=== PATIENT | male | born 1960 | race Caucasian/White ===

== ENCOUNTER 2023-01-08 09:54 | Outpatient (OUT) | payer BC, SELFPAY ==
--- NOTE | 2023-01-08 09:55 | VEIN_ITS ---
Patient: KEITH MENDES Exam Date: 01/08/2023 : 1960 Gender:M Ordering : DR Miky Bailey . Admission #: [id number] Family : Order #: [id number] CLICK HERE TO VIEW EXAM PROCEDURE: VC ARTERIAL SCAN ANNETTA COMPARISON: None. INDICATIONS: I73. 9 for Peripheral vascular disease FINDINGS: RIGHT LEG: Patent endovascular stent without significant narrowing within proximal femoral artery. Marked atherosclerotic disease throughout the right leg with abnormal monophasic waveform throughout. Parvus-tardus waveform within the distal femoral artery, popliteal, and calf arteries. Venous type waveform within anterior tibial artery. Flow velocities are above 50 cm/s except for within the anterior tibial artery (max 9 cm/s) and peroneal artery (max 20 cm/s). LEFT LEG: Patent endovascular stent without significant narrowing within proximal femoral artery. Marked atherosclerotic disease throughout the left leg with abnormal biphasic waveform throughout. Borderline, weak triphasic waveform within calf arteries. Flow velocities are above 50 cm/s throughout. CONCLUSION: 1. Marked atherosclerotic disease within the lower extremities resulting in abnormal waveform and decreased flow; right greater than left. Patent endovascular stents within the proximal femoral artery on the right and left. Dictated by: Louis De La Cruz M.D. on 01/08/2023 at 11:57 Approved by: Louis De La Cruz M.D. on 01/08/2023 at 12:41
--- NOTE | 2023-01-08 09:56 | VEIN_ITS ---
Patient: KEITH MENDES Exam Date: 01/08/2023 : 1960 Gender:M Ordering : DR Miky Bailey . Admission #: [id number] Family : Order #: [id number] CLICK HERE TO VIEW EXAM RADIOLOGY REPORT PROCEDURE: VC EXT VENOUS REFLUX ANNETTA LMTD COMPARISON: None. INDICATIONS: Pain due to varicose veins of bilateral legs I83.813 TECHNIQUE: Duplex imaging of the lower extremity to assess the deep and superficial venous system for the presence of deep or superficial venous incompetence and to document the location and severity of disease. The study includes evaluation of the great saphenous vein (GSV), anterior accessory saphenous vein (AASV) and small saphenous vein (SSV). Patient scanned in reverse Trendelenburg and standing. FINDINGS: RIGHT LOWER EXTREMITY: Saphenofemoral Junction Reflux: Yes 3.3mm 0.7 sec GSV: Diam (mm) Reflux/ Time (sec) Proximal Thigh 3.4 No Mid Thigh 2.0 No Distal Thigh 2.1 No Prox Calf 1.7 No Mid Calf 2.1 No 0.3 Saphenopopliteal Junction Reflux: 3.2mm No SSV: Proximal Calf 2.0 No Mid Calf 1.9 No AASV: Not present Proximal Thigh Mid Thigh Distal Thigh Thrombi: No acute or chronic thrombus visualized Compressibility: Normal Flow: Normal Director Money: Mid/med calf 2.2mm with 0s reflux. Tech Note: No incompetency or varicose veins visualized. Some images are limited due to large amounts of plaque. LEFT LOWER EXTREMITY: Saphenofemoral Junction Reflux: No 5.2 mm sec GSV: Diam (mm) Reflux/Time (sec) Proximal Thigh 3.0 No Mid Thigh 2.4 Yes 0.6 Distal Thigh 2.4 No Prox Calf 1.0 No Mid Calf N/A Saphenopopliteal Junction Relux: 2.6 mm No SSV: Proximal Calf 1.3 No Mid Calf 1.3 No AASV: Not present Proximal Thigh Mid Thigh Distal Thigh Thrombi: No acute or chronic thrombus visualized Compressibility: Normal Flow: Normal Director Money: Dist/med calf 1.7mm with 0s reflux. Tech Note: No incompetency or varicose veins visualized. CONCLUSION: 1. No significant abnormal dilation or incompetency of the superficial veins of the right or left leg. Dictated by: Louis De La Cruz M.D. on 01/08/2023 at 12:41 Approved by: Louis De La Cruz M.D. on 01/08/2023 at 13:46
== END 2023-01-08 09:55 | disposition home or self-care (01) ==
LOC: VC 09:54
PROVIDERS: PCP Family Medicine; Visit Provider Family Medicine
DX: E11.43 Type 2 diabetes mellitus with diabetic autonomic (poly)neuropathy (principal); I83.813 Varicose veins of bilateral lower extremities with pain; I73.9 Peripheral vascular disease, unspecified
CPT/HCPCS: 93925; 93970

== ENCOUNTER 2023-03-04 16:15 | Emergency (ER) | payer BC, SELFPAY ==
[2023-03-04 16:21] VITALS: BP 138/87; PULSE 103; RESP 20; TEMP 36.8; O2SAT 98
--- NOTE | 2023-03-04 16:24 | XR_ITS ---
The [address] [address] Patient Name: KEITH MENDES MRN: [id number] date: 1960 Sex: M Assigned Patient Location: ER Current Patient Location: ER Accession/Order Number: [id number] Exam Date: 03/04/2023 16:58 Report Date: 03/04/2023 17:45 At the request of: ARTUR MENDOZA Procedure: XR hip RT 2V w/ pelvis EXAM: XR hip RT 2V w/ pelvis HISTORY: Fall COMPARISON: None. TECHNIQUE: An AP view of the pelvis, 2 additional views of the right hip are performed. FINDINGS: There is no acute fracture. Joint spaces are symmetric. There are extensive atherosclerotic vascular calcifications. Vascular stents are seen within both femoral arteries. XR/XR hip RT 2V w/ pelvis IMPRESSION: No acute bony abnormality. Electronically authenticated by: MORELIA BOSS Date: 03/04/2023 17:45
--- NOTE | 2023-03-04 16:24 | CT_ITS ---
[address] [address] Patient Name: KEITH MENDES MRN: [id number] date: 1960 Sex: M Assigned Patient Location: ER Current Patient Location: ER Accession/Order Number: [id number] Exam Date: 03/04/2023 16:47 Report Date: 03/04/2023 17:47 At the request of: ARTUR MENDOZA Procedure: CT cervical spine wo con EXAMINATION: CT cervical spine wo con HISTORY: Fall COMPARISON: None. TECHNIQUE: CT scan of the cervical spine was performed without IV contrast. CT dose reduction technique was used, including Automated Exposure Control. FINDINGS: There is reverse of the normal cervical lordosis. No spondylolisthesis. There are degenerative changes of the cervical spine characterized by endplate osteophyte and intervertebral disc space narrowing, most pronounced at C5-C6 and C6-C7 levels. No prevertebral soft tissue swelling. No evidence for fracture . There is biapical centrilobular emphysema. CT/CT cervical spine wo con IMPRESSION: No acute fracture or subluxation. Electronically authenticated by: ROB DC Date: 03/04/2023 17:47
--- NOTE | 2023-03-04 16:24 | CT_ITS ---
[address] [address] Patient Name: KEITH MENDES MRN: [id number] date: 1960 Sex: M Assigned Patient Location: ED.MAIN Current Patient Location: ER Accession/Order Number: [id number] Exam Date: 03/04/2023 16:47 Report Date: 03/04/2023 17:46 At the request of: ARTUR MENDOZA Procedure: CT head/brain wo con EXAMINATION: CT head/brain wo con, 03/04/2023 4:47 PM EDT HISTORY: Fall COMPARISON: None. TECHNIQUE: CT scan of the head was performed without IV contrast. CT dose reduction technique was used, including Automated Exposure Control. FINDINGS: BRAIN PARENCHYMA/CSF SPACES: Ventricles are normal in size for age. There is no hemorrhage, mass effect or midline shift. There are no other significant findings. PARANASAL SINUSES: Clear. SKULL BASE AND CALVARIUM: Normal. EXTRACRANIAL SOFT TISSUES: Normal. CT/CT head/brain wo con IMPRESSION: No acute intracranial findings. Electronically authenticated by: NEL BROWN Date: 03/04/2023 17:46
--- NOTE | 2023-03-04 16:26 | ED_ITS ---
Documented by User: ALMA Ram 03/04/23 17:52 HPI - Head Injury General Chief complaint: Head Injury Stated complaint: HEAD INJURY/FALL Time Seen by Provider: 03/04/23 16:16 Source: patient and family Mode of arrival: Wheelchair Limitations: no limitations History of Present Illness HPI Narrative: Patient is a 62-year-old male who presents to the emergency department after fa lling and hitting his head. 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 He was cleared by his supervisor aircraft maintenance for this procedure and went home and took a nap. He states on waking from his nap he got up to ambulate and fell, striking his head and right side. He complains of some pain in the head, mild pain in the right side of the neck and mild pain in the right hip. He stopped his blood thinner several days ago in anticipation of his procedure tomorrow. He is not completely sure why he fell, but he thinks he may possibly have tripped on his oxygen tubing. He wears oxygen when he is up and moving at 3 L per nasal cannula. He has been able to ambulate since he fell. Related Data Allergies Allergy/AdvReac Type Severity Reaction Status Date / Time erythromycin base Allergy Severe Verified 03/04/23 16:21 Review of Systems ROS Constitutional Denies: fever or chills Ears, nose, mouth, and throat Reports: neck pain; Denies: throat pain Cardiovascular Denies: chest pain Respiratory Reports: shortness of breath; Denies: cough Gastrointestinal Reports: nausea; Denies: vomiting Musculoskeletal Reports: neck pain and extremity pain; Denies: back pain Integumentary/Breast Denies: rash Neurological Denies: headache Hematologic/Lymphatic Reports: easy bruising PFSH PFSH Social History Smoking status: Former smoker Exam Narrative Exam Narrative: Gen.: Awake, alert, in no distress Head: Normocephalic, atraumatic; no significant evidence of head or dental injury Neck: C-spine is nontender, mild tenderness of the right paraspinal muscles of the cervical spine ENT: Moist mucous membranes Respiratory: No respiratory distress, oxygen by nasal cannula, diminished lung sounds globally Cardio: Regular rate and rhythm Gastrointestinal: Abdomen is soft, nondistended and nontender to palpation, hips nontender and pelvis is stable Extremities: Moves extremities equally, no injuries noted; normal hip flexion bilaterally to remove the patient's pants, able to transfer from wheelchair to exam cart Psych: Normal mood and affect Neuro: No focal neuro deficit Skin: Warm, dry, intact Constitutional Vital Signs, click to edit/add: Last Vital Signs Temp 98.2 F 03/04/23 16:21 Pulse 80 03/04/23 18:14 Resp 22 03/04/23 18:14 BP 148/66 H 03/04/23 18:14 Pulse Ox 97 03/04/23 18:14 O2 Del Method Nasal Cannula 03/04/23 18:14 O2 Flow Rate 3 03/04/23 18:14 Course Vital Signs Vital signs: Vital Signs Temperature 98.2 F 03/04/23 16:21 Pulse Rate 103 H 03/04/23 16:21 Respiratory Rate 20 03/04/23 16:21 Blood Pressure 138/87 03/04/23 16:21 Pulse Oximetry 98 03/04/23 16:21 Oxygen Delivery Method Nasal Cannula 03/04/23 16:21 Oxygen Delivery Flow Rate 3 03/04/23 16:21 Temperature 98.2 F 03/04/23 16:21 Pulse Rate 80 03/04/23 18:14 Respiratory Rate 22 03/04/23 18:14 Blood Pressure 148/66 H 03/04/23 18:14 Pulse Oximetry 97 03/04/23 18:14 Oxygen Delivery Method Nasal Cannula 03/04/23 18:14 Oxygen Delivery Flow Rate 3 03/04/23 18:14 MDM - Head Injury MDM Narrative Medical decision making narrative: Patient requested his home dosage of Xanax for anxiety. He was given Zofran as well. CTs of the head, C-spine and x-rays of the right hip and pelvis are unremarkable, these were reviewed by the radiologist. Patient recently filled a prescription of Percocet from his PCP. He will have this at home for pain. Tylenol as needed, follow-up with PCP and return to the Emergency Room if symptoms change or worsen. Medical Records Attestation: I reviewed the patient's medical records. Imaging Data CT scan - head: Attestation: I have reviewed the pertinent imaging results. Radiologist's impression: Procedure: CT head/brain wo con EXAMINATION: CT head/brain wo con, 03/04/2023 4:47 PM EDT HISTORY: Fall COMPARISON: None. TECHNIQUE: CT scan of the head was performed without IV contrast. CT dose reduction technique was used, including Automated Exposure Control. FINDINGS: BRAIN PARENCHYMA/CSF SPACES: Ventricles are normal in size for age. There is no hemorrhage, mass effect or midline shift. There are no other significant findings. PARANASAL SINUSES: Clear. SKULL BASE AND CALVARIUM: Normal. EXTRACRANIAL SOFT TISSUES: Normal. IMPRESSION: No acute intracranial findings. Electronically authenticated by: NEL BROWN Date: 03/04/2023 17:46 CT cervical spine: Attestation: I have reviewed the pertinent imaging results. Radiologist's impression: Procedure: CT cervical spine wo con EXAMINATION: CT cervical spine wo con HISTORY: Fall COMPARISON: None. TECHNIQUE: CT scan of the cervical spine was performed without IV contrast. CT dose reduction technique was used, including Automated Exposure Control. FINDINGS: There is reverse of the normal cervical lordosis. No spondylolisthesis. There are degenerative changes of the cervical spine characterized by endplate osteophyte and intervertebral disc space narrowing, most pronounced at C5-C6 and C6-C7 levels. No prevertebral soft tissue swelling. No evidence for fracture . There is biapical centrilobular emphysema. IMPRESSION: No acute fracture or subluxation. Electronically authenticated by: ROB DC Date: 03/04/2023 17:47 XR pelvis/right hip: Attestation: I have reviewed the pertinent imaging results. Radiologist's impression: EXAM: XR hip RT 2V w/ pelvis HISTORY: Fall COMPARISON: None. TECHNIQUE: An AP view of the pelvis, 2 additional views of the right hip are performed. FINDINGS: There is no acute fracture. Joint spaces are symmetric. There are extensive atherosclerotic vascular calcifications. Vascular stents are seen within both femoral arteries. IMPRESSION: No acute bony abnormality. Electronically authenticated by: MORELIA BOSS Date: 03/04/2023 17:45 Discharge Plan Discharge Chief Complaint: Head Injury Clinical Impression: Closed head injury Patient Disposition: Home, Self-Care Time of Disposition Decision: 17:52 Condition: Good Mode of Transportation: Private Vehicle Instructions: Head Injury (ED) Stand Alone Forms: Portal Instructions Referrals: Miky Bailey MD [Primary Care Provider] - 1 week Discharge Date/Time: 03/04/23 18:05 Documented by User: Cece Jennings MD 03/04/23 18:31 HPI - Head Injury General Chief complaint: Head Injury Stated complaint: HEAD INJURY/FALL Time Seen by Provider: 03/04/23 16:16 Related Data Allergies Allergy/AdvReac Type Severity Reaction Status Date / Time erythromycin base Allergy Severe Verified 03/04/23 16:21 PFSH PFSH Social History Smoking status: Former smoker Exam Constitutional Vital Signs, click to edit/add: Last Vital Signs Temp 98.2 F 03/04/23 16:21 Pulse 80 03/04/23 18:14 Resp 22 03/04/23 18:14 BP 148/66 H 03/04/23 18:14 Pulse Ox 97 03/04/23 18:14 O2 Del Method Nasal Cannula 03/04/23 18:14 O2 Flow Rate 3 03/04/23 18:14 Course Vital Signs Vital signs: Vital Signs Temperature 98.2 F 03/04/23 16:21 Pulse Rate 103 H 03/04/23 16:21 Respiratory Rate 20 03/04/23 16:21 Blood Pressure 138/87 03/04/23 16:21 Pulse Oximetry 98 03/04/23 16:21 Oxygen Delivery Method Nasal Cannula 03/04/23 16:21 Oxygen Delivery Flow Rate 3 03/04/23 16:21 Temperature 98.2 F 03/04/23 16:21 Pulse Rate 80 03/04/23 18:14 Respiratory Rate 22 03/04/23 18:14 Blood Pressure 148/66 H 03/04/23 18:14 Pulse Oximetry 97 03/04/23 18:14 Oxygen Delivery Method Nasal Cannula 03/04/23 18:14 Oxygen Delivery Flow Rate 3 03/04/23 18:14 MDM - Head Injury MDM Narrative Medical decision making narrative: Patient requested his home dosage of Xanax for anxiety. He was given Zofran as well. CTs of the head, C-spine and x-rays of the right hip and pelvis are unremarkable, these were reviewed by the radiologist. Patient recently filled a prescription of Percocet from his PCP. He will have this at home for pain. Tylenol as needed, follow-up with PCP and return to the Emergency Room if symptoms change or worsen. Attending physician attestation I have reviewed the mid-level documentation, agree with the documentation, medical decision making and treatment plan as outlined by the mid-level provider. Discharge Plan Discharge Chief Complaint: Head Injury Clinical Impression: Closed head injury Patient Disposition: Home, Self-Care Time of Disposition Decision: 17:52 Condition: Good Mode of Transportation: Private Vehicle Instructions: Head Injury (ED) Stand Alone Forms: Portal Instructions Referrals: Miky Bailey MD [Primary Care Provider] - 1 week Discharge Date/Time: 03/04/23 18:05
[2023-03-04] MEDS: ONDANSETRON 4 MG RAPDIS TABLET SL (16:33)
[2023-03-04] MEDS: ALPRAZOLAM 0.25 MG TABLET PO (16:41)
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
[2023-03-04 18:14] VITALS: BP 148/66; PULSE 80; RESP 22; O2SAT 97
== END 2023-03-04 18:05 | disposition home or self-care (01) ==
PROVIDERS: Emergency Provider Emergency Medicine; PCP Family Medicine
DX: S09.8XXA Other specified injuries of head, initial encounter (principal); W18.30XA Fall on same level, unspecified, initial encounter; Z99.81 Dependence on supplemental oxygen; Z87.891 Personal history of nicotine dependence
CPT/HCPCS: 70450; 72125; 73502; 99284

== ENCOUNTER 2023-06-19 11:10 | Outpatient (OUT) | payer BC, SELFPAY ==
--- NOTE | 2023-06-19 11:16 | XR_ITS ---
The [address] [address] Patient Name: KEITH MENDES MRN: [id number] date: 1960 Sex: M Assigned Patient Location: LAB Current Patient Location: LAB Accession/Order Number: [id number] Exam Date: 06/19/2023 11:20 Report Date: 06/19/2023 13:29 At the request of: VALE CARRANZA Procedure: XR chest 2V EXAMINATION: XR chest 2V HISTORY: Other Specified Cough R05.8 , shortness of breath COMPARISON: XR chest 10/01/2022, 09/26/2022, 06/12/2022 FINDINGS: LUNGS: Chronic stranding within right lung apex favoring scarring. 1.5 cm nodular opacity along lateral left chest wall below level of hilum site of prior infiltrate and pleural effusion. VASCULATURE: No increased pulmonary vasculature. PLEURA: Moderate bilateral pleural effusions. No pneumothorax. CARDIAC: No cardiomegaly or cardiac silhouette abnormality. MEDIASTINUM: No visible mass or adenopathy. BONES: No fracture or visible bone lesion. OTHER: Negative. XR/XR chest 2V IMPRESSION: 1. Moderate bilateral pleural effusions 2. Small opacity along the lower lateral left chest wall; mass versus acute infiltrate versus scarring from prior infiltrates and pleural effusion. Consider follow-up CT chest for further evaluation, or at least a follow-up chest x-ray in one month following treatment to evaluate for clearing versus persistence. Electronically authenticated by: KEITH SU Date: 06/19/2023 13:29
== END 2023-06-19 11:11 | disposition home or self-care (01) ==
PROVIDERS: PCP Family Medicine; Visit Provider Family Medicine
DX: R05.8 Other specified cough (principal); J90 Pleural effusion, not elsewhere classified
CPT/HCPCS: 71046; 87070; 87150; 87186; 87205

== ENCOUNTER 2023-06-23 13:34 | Outpatient (OUT) | payer BC, SELFPAY ==
--- NOTE | 2023-06-23 13:39 | CT_ITS ---
[address] [address] Patient Name: KEITH MENDES MRN: [id number] date: 1960 Sex: M Assigned Patient Location: CT Current Patient Location: CT Accession/Order Number: [id number] Exam Date: 06/23/2023 13:50 Report Date: 06/23/2023 15:46 At the request of: VALE CARRANZA Procedure: CT chest wo con EXAM TYPE: CT chest wo con INDICATION: Dyspnea, COPD. COMPARISON: Noncontrast CT of the chest 03/31/2022, CT angiography of the chest 08/20/2022 TECHNIQUE: Noncontrast, Low dose, helical axial images of the chest were obtained, and thin section, axial MIP, and coronal and sagittal reformats were also submitted from the acquisition scanner under radiologist supervision. Each series was submitted in a lung algorithm. Dose reduction techniques were achieved by using automated exposure control and/or adjustment of mA and/or kV according to patient size and/or use of iterative reconstruction technique. FINDINGS: Please note that this examination was tailored for evaluation of pulmonary nodules, and therefore soft tissue detail is suboptimal. Heart size within normal limits. No pericardial effusion. Calcified atherosclerotic change within a normal caliber aorta. No mediastinal, hilar or axillary lymphadenopathy. No central endobronchial nodule. Extensive emphysematous change throughout the lung parenchyma with large right apical bulla. Diffuse bronchial wall thickening. Pronounced bronchial wall thickening within the right upper lobe with dense right upper lobe consolidation containing air bronchograms. Consolidation adjacent to large right apical bulla. Layering debris within apical bulla. Adjacent pleural thickening and traction fibrosis. Air-fluid level within large apical bulla is no longer identified. Trace bilateral pleural effusions with overlying consolidation. Small sliding hiatal hernia. No acute fracture. IMPRESSION : Interval increase in conspicuity of right upper lobe pneumonia with likely superimposed atelectasis. Air-fluid level within large right apical bulla is no longer appreciated however there is layering debris. Trace bilateral pleural effusions. Electronically authenticated by: HOSEA PHILLIPS Date: 06/23/2023 15:46
== END 2023-06-23 13:35 | disposition home or self-care (01) ==
LOC: CT 13:34
PROVIDERS: PCP Family Medicine; Visit Provider Family Medicine
DX: R06.02 Shortness of breath (principal); J44.9 Chronic obstructive pulmonary disease, unspecified
CPT/HCPCS: 71250

== ENCOUNTER 2023-06-24 11:44 | Inpatient (IN) | payer BC, SELFPAY ==
[2023-06-24] VITALS (11 sets, daily range): BP systolic 109–111; BP diastolic 56–67; PULSE 71–85; RESP 18–22; TEMP 36.3–36.5; O2SAT 92–98; BMI 18.8
--- NOTE | 2023-06-24 12:36 | XR_ITS ---
The [address] [address] Patient Name: KEITH MENDES MRN: [id number] date: 1960 Sex: M Assigned Patient Location: MS Current Patient Location: Accession/Order Number: [id number] Exam Date: 06/24/2023 13:50 Report Date: 06/24/2023 15:06 At the request of: VALE CARRANZA Procedure: XR chest 2V EXAM: XR chest 2V HISTORY: Dyspnea COMPARISON: 06/19/2023 TECHNIQUE: PA and lateral views FINDINGS: There is blunting of the bilateral lateral cost phrenic angles consistent with small bilateral pleural effusions, substantially unchanged from prior study of 5 days ago. Again, there is right apical scarring. A 1.5 cm pleurally based nodule is again seen in the left lower lung field laterally. No new infiltrate is evident. The heart is within normal limits in size. Early calcification at the aortic arch. XR/XR chest 2V IMPRESSION: Stable appearance of the chest, with blunting of the bilateral lateral costophrenic angles consistent with small bilateral pleural effusions. Electronically authenticated by: Beth FORREST Date: 06/24/2023 15:06
--- NOTE | 2023-06-24 12:37 | CA_ITS ---
Patient Name: KEITH MENDES MR#: [id number] : 1960 Exam Date: 06/24/2023 Ordering Doctor: DR VALE CARRANZA . ECHOCARDIOGRAM REPORT PROCEDURE: CA ECHO DOPPLER COMPLETE INDICATIONS: Dyspnea COMPARISON: None. DESCRIPTION: COMPLETE ECHOCARDIOGRAM Real-time transthoracic echocardiography with 2D, M-mode, spectral and color flow Doppler performed. QUALITY: Technical quality was adequate. LEFT VENTRICLE: Normal chamber size. Normal left ventricular wall thickness. LV EF: Global left ventricular systolic function is hyperdynamic. Visual estimation of left ventricular ejection fraction is 70-75 %. DIASTOLIC: Normal diastolic function. ATRIAL SEPTUM: Inadequately visualized. LEFT ATRIUM: Normal chamber size. RIGHT ATRIUM: Normal chamber size. RIGHT VENTRICLE: Normal chamber size. Normal right ventricular systolic function. TRICUSPID VALVE: Normal mobility and thickness. No stenosis with trivial regurgitation. No evidence of pulmonary hypertension. RVSP 21mmHg MITRAL VALVE: Mildly thickened with normal mobility. No evidence of mitral valve stenosis. There is no mitral annular calcification. No mitral regurgitation. AORTIC VALVE: Normal trileaflet appearance. Moderately calcified aortic valve. Doppler velocity suggest mild aortic valve stenosis. Velocities are likely overestimated due to hyperdynamic left ventricular function. No aortic regurgitation. AORTIC ROOT: Normal diameter and appearance. PULMONIC VALVE: Normal thickness and mobility. No stenosis. No regurgitation. PERICARDIUM: Anterior free space; trivial effusion versus fat pad. IVC: Collapses with inspirations. Normal size. CONCLUSION: 1. Global left ventricular systolic function is hyperdynamic; visually estimated ejection fraction is 70 to 75% 2. Normal diastolic function 3. The right ventricle is normal in size and systolic function 4. Mild aortic valve stenosis; velocities may be falsely elevated due to hyperdynamic global left ventricular systolic function 5. Anterior free space; trivial effusion versus fat pad Adult Echocardiography Procedure Report Left Ventricle LVEDD (3.7 - 5.6 cm): 3.88 cm LVESD (2.2 - 4.0 cm): 2.47 cm LVIVS thickness (0.6 - 1.2 cm): 8.53 mm LVPW thickness (0.5 - 1.0 cm): 9.54 mm LVOT Max Gradient: 3 mm[Hg] Peak Velocity (LVOT): 86.50 cm/s Mean Velocity (LVOT): 62.90 cm/s LVOT Diameter 1.90 cm Left Ventricular Ejection Fraction: 66.70 % Left Atrium LA Volume Index (2D A2C): 51043 mm3 Left Atrium Systolic Dimension: 2.80 cm Mitral Valve MV E to A Ratio: 0.80 Mitral Valve A-Wave Peak Velocity: 77.00 cm/s Mitral Valve E-Wave Peak Velocity: 64.20 cm/s Right Ventricle Aorta AO Root Diam: 2.90 cm Aortic Valve AoV Area (Peak Sebastian): 1.14 cm2 AoV Area (VTI): 1.57 cm2 Peak Velocity(Antegrade Flow): 216.00 cm/s Peak Gradient(Antegrade Flow): 19 mm[Hg] Mean Velocity(Antegrade Flow): 135.00 cm/s Mean Gradient(Antegrade Flow): 9 mm[Hg] Velocity Time Integral: 41.20 cm Tricuspid Valve Peak Velocity (Regurgitant Flow): 211.00 cm/s Peak Velocity: 61.70 cm/s Pulmonic Valve Peak Velocity: 97.70 cm/s, 106.00 cm/s Peak Gradient: 4 mm[Hg] Right Atrium Dictated by: Monae Amaral M.D. on 06/24/2023 at 15:54 Approved by: Monae Amaral M.D. on 06/24/2023 at 15:59
[2023-06-24 13:14] LABS: pH ABG 7.442 (7.350-7.450)
[2023-06-24 13:15] LABS: ABG PCO2 35.6 mmHg (35.0-45.0); Allen Test POSITIVE (POSITIVE); Base Excess ABG 0.1 mmol/L (-2.0-2.0); HCO3 ABG 24.3 mmol/L (22.0-26.0); Liters per Minute 3; O2 Mode NASAL CANNULA; Oxygen Saturation ABG 99.9 %
[2023-06-24 13:16] LABS: Puncture Site R RADIAL
[2023-06-24 13:49] LABS: Basophils Percent Auto 0.1 % (0.2-2.0); Eosinophils Percent Auto 0.2 % (0.9-7.0); Hematocrit 32.3 % (42.0-54.0); Hemoglobin 10.6 g/dL (14.0-18.0); Immature Granulocytes Abs Auto 0.09 10^3/uL (0.00-0.03); Immature Granulocytes Pct Auto 0.8 % (0.0-0.5); Lymphocytes Absolute Auto 0.9 10^3/uL (1.2-3.8); Lymphocytes Percent Auto 8.1 % (20.5-60.0); Mean Corpuscular HGB Conc 32.8 g/dL (29.9-35.2); Mean Corpuscular Hemoglobin 29.9 pg (25.9-34.0); Mean Corpuscular Volume 91.2 fL (80.0-94.0); Mean Platelet Volume 9.9 fL (9.5-13.5); Monocytes Absolute Auto 0.4 10^3/uL (0.3-0.8); Monocytes Percent Auto 3.3 % (1.7-12.0); Neutrophils Absolute Auto 10.2 10^3/uL (1.4-6.5); Neutrophils Percent Auto 87.5 % (43.0-75.0); Platelet Count 210 10^3/uL (150-450); Red Blood Count 3.54 10^6/uL (4.70-6.10); Red Cell Distribution Width 14.6 % (11.0-15.0); White Blood Count 11.6 10^3/uL (4.0-11.0)
[2023-06-24 14:01] LABS: Lactate/Lactic Acid 0.9 mmol/L (0.4-2.0)
[2023-06-24 14:05] LABS: Troponin I High Sensitivity 7.9 pg/mL (4.0-76.1)
[2023-06-24 14:26] LABS: Alanine Aminotransferase 17 U/L (16-63); Albumin Globulin Ratio 0.7; Albumin Level 2.7 g/dL (3.4-5.0); Alkaline Phosphatase 70 U/L (46-116); Anion Gap 12.9; Aspartate Amino Transferase 14 U/L (15-37); BUN Creatinine Ratio 21.1; Bilirubin Total 0.9 mg/dL (0.2-1.0); Calcium 8.5 mg/dL (8.5-10.1); Carbon Dioxide 25.1 mmol/L (21.0-32.0); Chloride 99 mmol/L (98-107); Estimated GFR (African America >60 (>=60); Estimated GFR (Non-African Ame >60 (>=60); Globulin 3.8 g/dL; Glucose 112 mg/dL (74-106); Magnesium 1.9 mg/dL (1.8-2.4); Sodium 133 mmol/L (136-145); Total Protein 6.5 g/dL (6.4-8.2)
[2023-06-24 14:39] LABS: C Reactive Protein 6.69 mg/dL (<=0.30)
[2023-06-24] MEDS: ACETAMINOPHEN 500 MG TABLET 1000 MG PO (14:48)
[2023-06-24] MEDS: BENZONATATE 100 MG CAPSULE 200 MG PO ×2 (14:48→21:03)
[2023-06-24] MEDS: METHYLPREDNISOLONE SOD SUCC PF 125 MG/2 ML VIAL IVP ×2 (14:48→19:45)
[2023-06-24] MEDS: PANTOPRAZOLE SODIUM 40 MG VIAL IV (14:48)
[2023-06-24] MEDS: NICOTINE 21 MG PATCH.TD24 TD (14:54)
[2023-06-24] MEDS: LEVOFLOXACIN IN DEXTROSE 5 % 750 MG/150 ML IV.SOLN 100 MG IV (16:02)
[2023-06-24] MEDS: OXYCODONE HCL 5 MG TABLET 10 MG PO ×2 (16:03→21:13)
[2023-06-24] MEDS: IPRATROPIUM/ALBUTEROL SULFATE 3 ML AMPUL.NEB IH (16:39)
--- NOTE | 2023-06-24 17:14 | P.PLCN_ITS ---
History of Present Illness History of Present Illness Consult date: 06/24/23 Requesting physician: Miky Bailey Reason for consult: pneumonia Chief complaint: PNEUMONIA Narrative: 63yo male presents to [facility] upon direct admission by Dr. Bailey for pneumonia. The patient was last seen by me inpatient on 08/22/2022; he had multiple admissions for respiratory-related issues. He was smoking at that time, which continued to exacerbate his COPD and cardiovascular issues. He was scheduled for a hospital F/U visit with me on 08/28/2022 and no showed for it. My office contacted the patient who stated I want to stop seeing Dr. Bull for now. He wished to have his pulmonary issues managed by Dr. Bailey from that time on. This was the last encounter with him until today. He has had several additional hospitalization since that time. He was at [facility] for an extensive vascular surgery which he developed significant blood-loss anemia. He states his breathing was doing more poorly at home. A CXR suggested an infiltrate. Dr. Bailey ordered a chest CT 06/23/2023, compared to chest CT 04/09/2023 and 08/20/2022 - the report notes Interval increase in conspicuity of right upper lobe pneumonia with likely superimposed atelectasis. Air-fluid level within large right apical bulla is no longer appreciated however there is layering debris. The chest CT from 04/09/2023 is not accessable for me on the [employer] P[employer] system, but I was able to directly compare the imaging from 06/22/2023 and 08/20/2022 which does show a change in the infiltrative orientation between those 2 studies. Review of Systems ROS Status of ROS 10 or more systems reviewed and unremark able except as noted in history and below Constitutional Reports: chills, fatigue and malaise; Denies: fever or night sweats Cardiovascular Denies: chest pain Respiratory Reports: shortness of breath, cough and wheezing [facility] Medical History (Updated 06/24/23 @ 17:24 by Soto Bull DO) Coronary artery disease ?I25.10 - Atherosclerotic heart disease of [place] coronary artery without angina pectoris (ICD-10) Alcohol abuse ?F10.10 - Alcohol abuse, uncomplicated (ICD-10) Atrial fibrillation ?I48.91 - Unspecified atrial fibrillation (ICD-10) Hyperlipidemia ?E78.5 - Hyperlipidemia, unspecified (ICD-10) COPD (chronic obstructive pulmonary disease) ?J44.9 - Chronic obstructive pulmonary disease, unspecified (ICD-10) Pulmonary nodule ?R91.1 - Solitary pulmonary nodule (ICD-10) Anemia ?D64.9 - Anemia, unspecified (ICD-10) Neuropathy ?G62.9 - Polyneuropathy, unspecified (ICD-10) Pancreatitis, chronic ?K86.1 - Other chronic pancreatitis (ICD-10) Osteoarthritis ?M19.90 - Unspecified osteoarthritis, unspecified site (ICD-10) Peripheral vascular disease ?I73.9 - Peripheral vascular disease, unspecified (ICD-10) Hypertension ?I10 - Essential (primary) hypertension (ICD-10) Surgical History (Updated 06/24/23 @ 13:48 by Katalina Chacko RN) Status post insertion of iliac artery stent ?Z95.828 - Presence of other vascular implants and grafts (ICD-10) H/O endarterectomy ?Z98.890 - Other specified postprocedural states (ICD-10) Family History (Updated 06/24/23 @ 13:06 by Katalina Chacko RN) Father Family history of CHF (congestive heart failure) Mother Family history of COPD (chronic obstructive pulmonary disease) Family history of diabetes mellitus Social History (Updated 06/24/23 @ 13:07 by Katalina Chacko RN) Within the past year, how often did you have a drink containing alcohol: monthly or less Smoking status: Current every day smoker Non-prescribed substance use: cannabis (any form) Highest level of school completed/degree received: 12th grade, no diploma Meds Home Medications and Allergies Home Medications Medication Instructions Recorded Confirmed Type albuterol sulfate 2.5 mg/3 mL 2.5 mg inhalation Q4H PRN 06/24/23 06/24/23 History (0.083 %) solution for nebulization shortness of breath or wheezing alprazolam 0.5 mg tablet (Xanax) 0.5 mg PO TID PRN anxiety 06/24/23 06/24/23 History atorvastatin 40 mg tablet (Lipitor) 40 mg PO QPM 06/24/23 06/24/23 History carvedilol 6.25 mg tablet (Coreg) 6.25 mg PO BID 06/24/23 06/24/23 History cholecalciferol (vitamin D3) 50 2,000 unit PO DAILY 06/24/23 06/24/23 History mcg (2,000 unit) capsule duloxetine 30 mg capsule,delayed 30 mg PO DAILY 06/24/23 06/24/23 History release (Cymbalta) fluticasone fur. 200 mcg-umeclid 1 inh inhalation DAILY 06/24/23 06/24/23 History 62.5 mcg-vilant 25 mcg inhalat.powder (Trelegy Ellipta) gabapentin 600 mg tablet 600 mg PO BID 06/24/23 06/24/23 History (Neurontin) omeprazole 40 mg capsule,delayed 40 mg PO DAILY 06/24/23 06/24/23 History release oxycodone 10 mg tablet 10 mg PO Q4H PRN pain 06/24/23 06/24/23 History prasugrel 10 mg tablet 10 mg PO DAILY 06/24/23 06/24/23 History prednisone 10 mg tablet 20 mg PO DAILY 06/24/23 06/24/23 History valsartan 80 mg tablet (Diovan) 80 mg PO DAILY 06/24/23 06/24/23 History Allergies Allergy/AdvReac Type Severity Reaction Status Date / Time erythromycin base Allergy Severe Verified 03/04/23 16:21 Exam Constitutional Vital Signs, click to edit/add: Last Vital Signs Temp 97.7 F 06/24/23 12:31 Pulse 76 06/24/23 15:56 Resp 22 06/24/23 12:31 BP 111/67 06/24/23 12:31 Pulse Ox 97 06/24/23 12:31 O2 Del Method Nasal Cannula 06/24/23 12:31 O2 Flow Rate 3 06/24/23 12:31 Documenting provider has reviewed patient's vital signs: yes General appearance: frail appearing Nutritional appearance: underweight HENMT Other: Wearing Nasal cannula Chest Common normals: inspection of chest normal Chest: symmetrical chest wall rise Respiratory Other: Very diminished breath sounds bilaterally. Faint crackles in right chest mid- axillary line. No wheezes. Cardio Rate: regular rate Rhythm: regular rhythm GI Common normals: soft to palpation Auscultation: normoactive bowel sounds Extremity Other: Multiple BUE skin ecchymoses Neuro Sensorium/orientation: awake and alert Psych Speech: normal speech Mood and affect: flat affect Results Laboratory Findings ABG, PT/INR, D-dimer: ABG ABG pH 7.442 (7.350-7.450) 06/24/23 13:05 ABG pCO2 35.6 mmHg (35.0-45.0) 06/24/23 13:05 ABG pO2 131.0 mmHg (80.0-100.0) H 06/24/23 13:05 ABG O2 Saturation 99.9 % 06/24/23 13:05 Abnormal lab findings: Abnormal Labs 06/24/23 06/24/23 13:05 13:26 WBC 11.6 H RBC 3.54 L Hgb 10.6 L Hct 32.3 L Neut % (Auto) 87.5 H Lymph % (Auto) 8.1 L Eos % (Auto) 0.2 L Baso % (Auto) 0.1 L Neut # (Auto) 10.2 H Lymph # (Auto) 0.9 L Abs Immat Gran (auto) 0.09 H Imm/Tot Granulo (auto) 0.8 H ABG pO2 131.0 H Sodium 133 L Glucose 112 H AST 14 L C-Reactive Protein 6.69 H Albumin 2.[address] scan - chest: report reviewed and image reviewed Assessment and Plan Assessment and Plan (1) HCAP (healthcare-associated pneumonia): Assessment and Plan: 1. Healthcare-acquired pneumonia (HCAP) present on admission. Noted RUL on chest CT 06/23/2023. Though I could not access imaging from 04/09/2023, orientation of infiltrate has changed from 08/20/2022. As the chest CT was <90 days, I presume this was during an outside-[facility] facility admission, so he meets the time for HCAP definition. Patient was seen soon after arriving to the floor, so any lab evaluation was not reviewed. He was started on Zosyn + Levaquin, which I agree with this combination of antibiotics. Continue to monitor for improvement. Discussed that I would prefer to avoid a bronchoscopy for a BAL if possible - will see if any cultures return positive and tailor anti biotics according to C&S. 2. Acute exaerbation of COPD - underlying centrilobular emphysema. Continue bronchodilators, pulmonary toilet. 3. Tobacco abuse, current. Patient needs tobacco abuse cessation counseling again. 4. History of empyema and lung abscess. Need to monitor patient very carefully. Plan I will follow peripherally at this time in the event further pulmonary intervention is required.
[2023-06-24] MEDS: PIPERACILLIN SODIUM/TAZOBACTAM 3.375 GM in 0.9 % SODIUM CHLORIDE 50 ML IV (17:46)
[2023-06-24] MEDS: ALPRAZOLAM 0.5 MG TABLET PO (19:45)
[2023-06-24] MEDS: ATORVASTATIN CALCIUM 40 MG TABLET PO (19:45)
[2023-06-24] MEDS: CARVEDILOL 6.25 MG TABLET PO (21:03)
[2023-06-24] MEDS: GABAPENTIN 300 MG CAPSULE 600 MG PO (21:03)
[2023-06-24] MEDS: L. ACIDOPHILUS/L.BULGARICUS 1 PACKET GRAN.PACK PO (21:04)
--- NOTE | 2023-06-24 23:33 | RESP.RT ---
Patient denies need for HHN right now. Takes TID mostly at home but likes to take the last one around 6 or 7 pm since they make him shaky. Patient knows to call if needed
[2023-06-25] VITALS (21 sets, daily range): BP systolic 102–167; BP diastolic 51–73; PULSE 66–788; RESP 16–24; TEMP 36.2–36.4; O2SAT 92–99
[2023-06-25] MEDS: PIPERACILLIN SODIUM/TAZOBACTAM 3.375 GM in 0.9 % SODIUM CHLORIDE 50 ML IV ×3 (01:21→17:30)
[2023-06-25] MEDS: OXYCODONE HCL 5 MG TABLET 10 MG PO ×4 (01:21→19:00)
[2023-06-25] MEDS: METHYLPREDNISOLONE SOD SUCC PF 125 MG/2 ML VIAL IVP ×4 (01:21→20:44)
[2023-06-25] MEDS: ALBUTEROL SULFATE 2.5 MG/3 ML VIAL NEB IH ×3 (04:21→20:28)
[2023-06-25 05:24] LABS: Hematocrit 32.6 % (42.0-54.0); Hemoglobin 10.2 g/dL (14.0-18.0); Immature Granulocytes Abs Auto 0.07 10^3/uL (0.00-0.03); Immature Granulocytes Pct Auto 1.2 % (0.0-0.5); Lymphocytes Absolute Auto 0.7 10^3/uL (1.2-3.8); Mean Corpuscular HGB Conc 31.3 g/dL (29.9-35.2); Mean Corpuscular Volume 92.6 fL (80.0-94.0); Mean Platelet Volume 9.7 fL (9.5-13.5); Monocytes Absolute Auto 0.1 10^3/uL (0.3-0.8); Neutrophils Absolute Auto 5.2 10^3/uL (1.4-6.5); Neutrophils Percent Auto 86.8 % (43.0-75.0); Platelet Count 204 10^3/uL (150-450); Red Blood Count 3.52 10^6/uL (4.70-6.10); Red Cell Distribution Width 14.6 % (11.0-15.0); White Blood Count 5.9 10^3/uL (4.0-11.0)
[2023-06-25] MEDS: BENZONATATE 100 MG CAPSULE 200 MG PO ×2 (05:38→14:26)
[2023-06-25] MEDS: OMEPRAZOLE 40 MG CAPSULE.DR PO (05:38)
[2023-06-25] MEDS: ALPRAZOLAM 0.5 MG TABLET PO ×2 (05:41→20:43)
[2023-06-25 05:49] LABS: Alanine Aminotransferase 14 U/L (16-63); Albumin Globulin Ratio 0.7; Albumin Level 2.5 g/dL (3.4-5.0); Alkaline Phosphatase 64 U/L (46-116); Anion Gap 8.7; Aspartate Amino Transferase 7 U/L (15-37); BUN Creatinine Ratio 20.9; Bilirubin Total 0.5 mg/dL (0.2-1.0); Calcium 8.3 mg/dL (8.5-10.1); Carbon Dioxide 28.7 mmol/L (21.0-32.0); Chloride 102 mmol/L (98-107); Estimated GFR (African America >60 (>=60); Estimated GFR (Non-African Ame >60 (>=60); Globulin 3.8 g/dL; Glucose 147 mg/dL (74-106); Potassium 4.4 mmol/L (3.5-5.1); Sodium 135 mmol/L (136-145); Total Protein 6.3 g/dL (6.4-8.2); Troponin I High Sensitivity 5.3 pg/mL (4.0-76.1)
--- NOTE | 2023-06-25 07:41 | P.PN_ITS ---
Progress Note: Subjective Subjective Interval history: Patient feels his breathing is not improved since admission. Discharge at this process yesterday afternoon, still with significant sputum production. Exam Constitutional Vital Signs, click to edit/add: Last Vital Signs Temp 97.3 F L 06/25/23 06:00 Pulse 68 06/25/23 06:00 Resp 18 06/25/23 06:00 BP 105/51 06/25/23 06:00 Pulse Ox 98 06/25/23 06:00 O2 Del Method Nasal Cannula 06/25/23 06:00 O2 Flow Rate 3 06/25/23 06:00 Documenting provider has reviewed patient's vital signs: yes Common normals: apparent distress (Mild respiratory distress with mild conversational dyspnea) Chest Common normals: inspection of chest normal Respiratory Common normals: abnormal respiratory effort Auscultation: rhonchi right upper, diminished lung sounds and egophony right upper; no wheezes Cardio Common normals: regular rate Progress Note: Objective Labs Labs: Short CBC 06/24/23 06/25/23 Range/Units 13:26 05:05 WBC 11.6 H 5.9 (4.0-11.0) 10^3/uL Hgb 10.6 L 10.2 L (14.0-18.0) g/dL Hct 32.3 L 32.6 L (42.0-54.0) % Plt Count 210 204 (150-450) 10^3/uL BMP 06/24/23 06/25/23 13:26 05:05 Sodium 133 L 135 L Potassium 4.0 4.4 Chloride 99 102 Carbon Dioxide 25.1 28.7 BUN 16.0 18.0 Creatinine 0.76 0.86 Glucose 112 H 147 H Calcium 8.5 8.3 L Liver Function 06/24/23 06/25/23 Range/Units 13:26 05:05 Total Bilirubin 0.9 0.5 (0.2-1.0) mg/dL AST 14 L 7 L (15-37) U/L ALT 17 14 L (16-63) U/L Alkaline Phosphatase 70 64 (46-116) U/L Albumin 2.7 L 2.5 L (3.4-5.0) g/dL Progress Note: A&P Assessment and Plan (1) HCAP (healthcare-associated pneumonia): Plan Patient with fairly recent hospitalization presented to the office with increasing cough. Relative hypoxia with O2 sat of 92% on 3 L. Leukocytosis. Had findings consistent with pneumonia was treated with oral antibiotics without success. CT scan showed enlarging area of pneumonia. So right upper lobe pneumonia possible healthcare acquired, with acute exacerbation of COPD. Acute hypoxic respiratory failure with again the relative hypoxia of 92% on 3 L. Patient was admitted for IV antibiotics and more intensive respiratory treatments. Patient has a history of lung abscess. CT scan not show any fluid collection consistent with abscess. Consultation with pulmonology. Appreciate input from pulmonology. Breathing not significant improvement to started treatments. Continue with IV antibiotics and steroids. Try to obtain sputum sample Moderate protein calorie malnutrition-diet supplement Hyponatremia-improving, continue to monitor daily Hyperglycemia secondary to steroids, continue to monitor closely. Iron deficiency anemia-probably at his baseline. Monitor Generalized anxiety disorder-continue current medication but will make every 6 Hypertension-continue with current medications Peripheral neuropathy-continue with gabapentin and pain medications With lack of improvement overnight and relative hypoxia overnight, will change patient to inpatient status. Likely 2-3 more day hospital stay. Patient high risk for recurrence of his empyema so would recommend aggressive IV antibiotics.
[2023-06-25] MEDS: L. ACIDOPHILUS/L.BULGARICUS 1 PACKET GRAN.PACK PO ×2 (09:15→20:43)
[2023-06-25] MEDS: CHOLECALCIFEROL (VITAMIN D3) 25 MCG/1,000 UNITS TABLET 50 MCG PO (09:15)
[2023-06-25] MEDS: PRASUGREL HCL 10 MG TABLET PO (09:15)
[2023-06-25] MEDS: LOSARTAN POTASSIUM 50 MG TABLET PO (09:16)
[2023-06-25] MEDS: DULOXETINE HCL 30 MG CAPSULE.DR PO (09:16)
[2023-06-25] MEDS: CARVEDILOL 6.25 MG TABLET PO ×2 (09:16→20:43)
[2023-06-25] MEDS: GABAPENTIN 300 MG CAPSULE 600 MG PO ×2 (09:16→20:44)
[2023-06-25] MEDS: PANTOPRAZOLE SODIUM 40 MG VIAL IV (14:26)
[2023-06-25] MEDS: LEVOFLOXACIN IN DEXTROSE 5 % 750 MG/150 ML IV.SOLN 100 MG IV (15:55)
[2023-06-25] MEDS: ATORVASTATIN CALCIUM 40 MG TABLET PO (20:44)
[2023-06-26] VITALS (51 sets, daily range): BP systolic 128–233; BP diastolic 71–131; PULSE 60–125; RESP 13–34; TEMP 36.6; O2SAT 78–100
[2023-06-26] MEDS: PIPERACILLIN SODIUM/TAZOBACTAM 3.375 GM in 0.9 % SODIUM CHLORIDE 50 ML IV (02:08)
[2023-06-26] MEDS: METHYLPREDNISOLONE SOD SUCC PF 125 MG/2 ML VIAL IVP (02:08)
[2023-06-26] MEDS: ALPRAZOLAM 0.5 MG TABLET PO (02:45)
[2023-06-26] MEDS: OXYCODONE HCL 5 MG TABLET 10 MG PO (03:53)
--- NOTE | 2023-06-26 04:12 | RESP.RT ---
Pt found on room air. Placed back on 3L. Pt wears 3L at home.
[2023-06-26 06:07] LABS: Basophils Percent Auto 0.1 % (0.2-2.0); Hematocrit 31.8 % (42.0-54.0); Immature Granulocytes Abs Auto 0.12 10^3/uL (0.00-0.03); Immature Granulocytes Pct Auto 0.9 % (0.0-0.5); Lymphocytes Absolute Auto 0.6 10^3/uL (1.2-3.8); Mean Corpuscular HGB Conc 31.4 g/dL (29.9-35.2); Mean Corpuscular Hemoglobin 29.2 pg (25.9-34.0); Monocytes Absolute Auto 0.5 10^3/uL (0.3-0.8); Monocytes Percent Auto 3.3 % (1.7-12.0); Neutrophils Absolute Auto 12.6 10^3/uL (1.4-6.5); Neutrophils Percent Auto 91.7 % (43.0-75.0); Platelet Count 237 10^3/uL (150-450); Red Blood Count 3.42 10^6/uL (4.70-6.10); Red Cell Distribution Width 14.6 % (11.0-15.0); White Blood Count 13.8 10^3/uL (4.0-11.0)
[2023-06-26] MEDS: OMEPRAZOLE 40 MG CAPSULE.DR PO (06:32)
[2023-06-26 07:05] LABS: Alanine Aminotransferase 14 U/L (16-63); Albumin Globulin Ratio 0.6; Albumin Level 2.4 g/dL (3.4-5.0); Alkaline Phosphatase 57 U/L (46-116); Anion Gap 12.1; Aspartate Amino Transferase 14 U/L (15-37); BUN Creatinine Ratio 19.4; Bilirubin Total 0.2 mg/dL (0.2-1.0); Calcium 8.7 mg/dL (8.5-10.1); Carbon Dioxide 25.3 mmol/L (21.0-32.0); Chloride 105 mmol/L (98-107); Estimated GFR (African America >60 (>=60); Estimated GFR (Non-African Ame >60 (>=60); Globulin 3.7 g/dL; Glucose 156 mg/dL (74-106); Potassium 4.4 mmol/L (3.5-5.1); Sodium 138 mmol/L (136-145); Total Protein 6.1 g/dL (6.4-8.2); Troponin I High Sensitivity 7.3 pg/mL (4.0-76.1)
--- NOTE | 2023-06-26 07:18 | P.DS_ITS ---
DS: Providers Provider Date of admission: 06/24/23 12:33 Primary care physician: Miky Bailey MD Consults: 06/24/23 12:33 Consult to Pulmonology Routine Consulting Provider: Soto Bull Reason for consultation: pneumonia Has provider been notified: No 06/24/23 12:37 Occupational Therapy Eval and Treat Routine Reason for consultation: Only if needed for Rehab Has provider been notified: No Physical Therapy Eval and Treat Routine Reason for consultation: Eval and Treat Has provider been notified: No DS: Diagnosis Discharge Diagnosis (1) HCAP (healthcare-associated pneumonia): Plan Patient with fairly recent hospitalization presented to the office with increasing cough. Relative hypoxia with O2 sat of 92% on 3 L. Leukocytosis. Had findings consistent with pneumonia was treated with oral antibiotics without success. CT scan showed enlarging area of pneumonia. So right upper lobe pneumonia possible healthcare acquired, with acute exacerbation of COPD. Acute hypoxic respiratory failure with again the relative hypoxia of 92% on 3 L. Moderate protein calorie malnutrition Hyponatremia Hyperglycemia secondary to steroids Iron deficiency anemia Generalized anxiety disorder Hypertension Peripheral neuropathy DS: Summary Hospital Course Hospital Course: Patient was admitted with failed outpatient treatment of pneumonia. Progressive shown on x-ray. Patient had hypoxia on admission. Vital signs improved throughout the hospital stay. He is down to his baseline of 2 to 3 L. Sputum culture is still pending. He did improve faster than anticipated. His evaluation yesterday suspected he would be here 2-3 more days but he is much improved this morning. His lungs are fairly clear and his egophony has resolved. So with being back to his baseline supplemental oxygen of 2 L he will be discharged home in improving condition. Medications see list. Follow-up with me in the office next week. Time Spent with Patient Time attestation: Total time spent providing and/or coordinating discharge services: Exam Constitutional Vital Signs, click to edit/add: Last Vital Signs Temp 97.9 F 06/26/23 05:48 Pulse 88 06/26/23 05:57 Resp 18 06/26/23 05:48 BP 128/71 06/26/23 05:48 Pulse Ox 96 06/26/23 05:48 O2 Del Method Nasal Cannula 06/26/23 05:48 O2 Flow Rate 2 06/26/23 05:48 Documenting provider has reviewed patient's vital signs: yes Common normals: apparent distress (Mild respiratory distress with mild conversational dyspnea) Chest Common normals: inspection of chest normal Respiratory Common normals: normal respiratory effort Auscultation: diminished lung sounds; no rhonchi, no wheezes and no egophony Cardio Common normals: regular rate DS: Data Data Completed and Pending Labs on day of discharge: Labs from last 24 hours 06/26/23 05:13 WBC 13.8 H RBC 3.42 L Hgb 10.0 L Hct 31.8 L MCV 93.0 MCH 29.2 MCHC 31.4 RDW 14.6 Plt Count 237 MPV 10.0 Neut % (Auto) 91.7 H Lymph % (Auto) 4.0 L [place] % (Auto) 3.3 Eos % (Auto) 0.0 L Baso % (Auto) 0.1 L Neut # (Auto) 12.6 H Lymph # (Auto) 0.6 L [place] # (Auto) 0.5 Eos # (Auto) 0.0 Baso # (Auto) 0.0 Abs Immat Gran (auto) 0.12 H Imm/Tot Granulo (auto) 0.9 H Sodium 138 Potassium 4.4 Chloride 105 Carbon Dioxide 25.3 Anion Gap 12.1 BUN 19.0 H Creatinine 0.98 Est GFR ( Amer) >60 Est GFR (Non-Af Amer) >60 BUN/Creatinine Ratio 19.4 Glucose 156 H Calcium 8.7 Total Bilirubin 0.2 AST 14 L ALT 14 L Alkaline Phosphatase 57 Troponin I High Sens 7.3 NT-Pro-B Natriuret Pep 541.0 Total Protein 6.1 L Albumin 2.4 L Globulin 3.7 Albumin/Globulin Ratio 0.6 Discharge Plan Discharge Disposition: Home, Self-Care Discharge Medications: New levofloxacin 750 mg tablet 750 mg PO DAILY 14 Days Qty: 14 0RF prednisone 10 mg tablet 50 mg PO DAILY Qty: 47 0RF Rx Instructions: 5/day for 3 days. 4/day for 3 days, 3/day for 3 days, 2/day for 3 days, 1/day for 3 days, 1/2 /day for 4 days Continued alprazolam [Xanax] 0.5 mg tablet 0.5 mg PO TID PRN (Reason: anxiety) atorvastatin [Lipitor] 40 mg tablet 40 mg PO QPM carvedilol [Coreg] 6.25 mg tablet 6.25 mg PO BID Rx Instructions: must administer with a meal/food cholecalciferol (vitamin D3) 50 mcg (2,000 unit) capsule 2,000 unit PO DAILY duloxetine [Cymbalta] 30 mg capsule,delayed release(DR/EC) 30 mg PO DAILY Trelegy Ellipta 200-62.5-25 mcg blister with device 1 inh inhalation DAILY gabapentin [Neurontin] 600 mg tablet 600 mg PO BID omeprazole 40 mg capsule,delayed release(DR/EC) 40 mg PO DAILY Rx Instructions: BEFORE BREAKFAST prednisone 10 mg tablet 20 mg PO DAILY valsartan [Diovan] 80 mg tablet 80 mg PO DAILY prasugrel 10 mg tablet 10 mg PO DAILY oxycodone 10 mg tablet 10 mg PO Q4H PRN (Reason: pain) albuterol sulfate 2.5 mg /3 mL (0.083 %) solution for nebulization 2.5 mg inhalation Q4H PRN (Reason: shortness of breath or wheezing) Forms: Portal Instructions
--- NOTE | 2023-06-26 07:26 | XR_ITS ---
The [address] [address] Patient Name: KEITH MENDES MRN: [id number] date: 1960 Sex: M Assigned Patient Location: ICU Current Patient Location: ICU Accession/Order Number: [id number] Exam Date: 06/26/2023 08:00 Report Date: 06/26/2023 08:21 At the request of: VALE CARRANZA Procedure: XR chest 1V EXAM: XR chest 1V HISTORY: post intubation, follow up pneumonia COMPARISON: 06/24/2023. TECHNIQUE: AP FINDINGS: LUNGS: Endotracheal tube tip is 8.8 cm above the crystal. Catheter projects over the aortic arch. Right upper lobe infiltrate, slightly progressed Mild left basilar infiltrate., New. The right lateral lung is not observed due to patient positioning VASCULATURE: No increased pulmonary vasculature. PLEURA: No pneumothorax. Blunting of the left lateral costophrenic angle suggests a small left pleural effusion CARDIAC: No cardiomegaly or cardiac silhouette abnormality. MEDIASTINUM: No visible mass or adenopathy. BONES: No fracture or visible bone lesion. OTHER: External pacemaker pads XR/XR chest 1V IMPRESSION: Progression of right upper and left basilar infiltrates Endotracheal tube tip 8.8 cm above the crystal Electronically authenticated by: BO CARTER Date: 06/26/2023 08:21
--- NOTE | 2023-06-26 08:15 | P.PN_ITS ---
Progress Note: Subjective Subjective Interval history: Patient feels his breathing is not improved since admission. Discharge at this process yesterday afternoon, still with significant sputum production. Exam Constitutional Vital Signs, click to edit/add: Last Vital Signs Temp 97.9 F 06/26/23 05:48 Pulse 88 06/26/23 05:57 Resp 18 06/26/23 05:48 BP 128/71 06/26/23 05:48 Pulse Ox 96 06/26/23 05:48 O2 Del Method Nasal Cannula 06/26/23 05:48 O2 Flow Rate 2 06/26/23 05:48 Progress Note: Objective Labs Labs: Short CBC 06/26/23 Range/Units 05:13 WBC 13.8 H (4.0-11.0) 10^3/uL Hgb 10.0 L (14.0-18.0) g/dL Hct 31.8 L (42.0-54.0) % Plt Count 237 (150-450) 10^3/uL BMP 06/26/23 05:13 Sodium 138 Potassium 4.4 Chloride 105 Carbon Dioxide 25.3 BUN 19.0 H Creatinine 0.98 Glucose 156 H Calcium 8.7 Liver Function 06/26/23 Range/Units 05:13 Total Bilirubin 0.2 (0.2-1.0) mg/dL AST 14 L (15-37) U/L ALT 14 L (16-63) U/L Alkaline Phosphatase 57 (46-116) U/L Albumin 2.4 L (3.4-5.0) g/dL Progress Note: A&P Assessment and Plan (1) HCAP (healthcare-associated pneumonia): Plan Patient with fairly recent hospitalization presented to the office with increasing cough. Relative hypoxia with O2 sat of 92% on 3 L. Leukocytosis. Had findings consistent with pneumonia was treated with oral antibiotics without success. CT scan showed enlarging area of pneumonia. So right upper lobe pneumonia possible healthcare acquired, with acute exacerbation of COPD. Acute hypoxic respiratory failure with again the relative hypoxia of 92% on 3 L. - pt was geting ready to be discharge later today and started throwing up copious blood and coughing blood. Code called, pt unable to maintain sats so was intubated. Vent management per pulmonology. Patient continued to have a fair amount of hemoptysis. Sectioning through the ET tube, NG placed also had significant amount of blood in the stomach as well. Case was discussed with [facility] about transfer secondary to difficulty ventilating secondary to blood in the lungs. Patient be transferred to [facility] for critical care. At this point I would suspect esophageal varices bleeding with hemoptysis secondary to aspiration. Laboratory results show a metabolic acidosis although that is improving at the time of discharge. Moderate protein calorie malnutrition Hyponatremia Hyperglycemia secondary to steroids Acute blood loss anemia - hemptuysis or hematemesis - no known hxc esophageal varices - Iron deficiency anemia Stat labs pending Generalized anxiety disorder Hypertension Peripheral neuropathy
--- NOTE | 2023-06-26 08:16 | ED_ITS ---
HPI - General Adult History of Present Illness HPI narrative: I was called to the room of this patient for a code situation. Upon arrival the patient was in respiratory distress and had blood on his face and on the bed. Respirations were being assisted. He was nonconversant. At no point did he receive chest compressions. Related Data Home Medications Medication Instructions Recorded Confirmed albuterol sulfate 2.5 mg/3 mL 2.5 mg inhalation Q4H PRN 06/24/23 06/24/23 (0.083 %) solution for nebulization shortness of breath or wheezing alprazolam 0.5 mg tablet (Xanax) 0.5 mg PO TID PRN anxiety 06/24/23 06/24/23 atorvastatin 40 mg tablet (Lipitor) 40 mg PO QPM 06/24/23 06/24/23 carvedilol 6.25 mg tablet (Coreg) 6.25 mg PO BID 06/24/23 06/24/23 cholecalciferol (vitamin D3) 50 2,000 unit PO DAILY 06/24/23 06/24/23 mcg (2,000 unit) capsule duloxetine 30 mg capsule,delayed 30 mg PO DAILY 06/24/23 06/24/23 release (Cymbalta) fluticasone fur. 200 mcg-umeclid 1 inh inhalation DAILY 06/24/23 06/24/23 62.5 mcg-vilant 25 mcg inhalat.powder (Trelegy Ellipta) gabapentin 600 mg tablet 600 mg PO BID 06/24/23 06/24/23 (Neurontin) omeprazole 40 mg capsule,delayed 40 mg PO DAILY 06/24/23 06/24/23 release oxycodone 10 mg tablet 10 mg PO Q4H PRN pain 06/24/23 06/24/23 prasugrel 10 mg tablet 10 mg PO DAILY 06/24/23 06/24/23 prednisone 10 mg tablet 20 mg PO DAILY 06/24/23 06/24/23 valsartan 80 mg tablet (Diovan) 80 mg PO DAILY 06/24/23 06/24/23 Previous Rx's Medication Instructions Recorded levofloxacin 750 mg tablet 750 mg PO DAILY 14 days #14 tabs 06/26/23 prednisone 10 mg tablet 50 mg (5 x 10 mg) PO DAILY #47 tabs 06/26/23 Allergies Allergy/AdvReac Type Severity Reaction Status Date / Time erythromycin base Allergy Severe Verified 03/04/23 16:[address] [facility] Medical History (Updated 06/24/23 @ 17:24 by Soto Bull DO) Coronary artery disease ?I25.10 - Atherosclerotic heart disease of [place] coronary artery without angina pectoris (ICD-10) Alcohol abuse ?F10.10 - Alcohol abuse, uncomplicated (ICD-10) Atrial fibrillation ?I48.91 - Unspecified atrial fibrillation (ICD-10) Hyperlipidemia ?E78.5 - Hyperlipidemia, unspecified (ICD-10) COPD (chronic obstructive pulmonary disease) ?J44.9 - Chronic obstructive pulmonary disease, unspecified (ICD-10) Pulmonary nodule ?R91.1 - Solitary pulmonary nodule (ICD-10) Anemia ?D64.9 - Anemia, unspecified (ICD-10) Neuropathy ?G62.9 - Polyneuropathy, unspecified (ICD-10) Pancreatitis, chronic ?K86.1 - Other chronic pancreatitis (ICD-10) Osteoarthritis ?M19.90 - Unspecified osteoarthritis, unspecified site (ICD-10) Peripheral vascular disease ?I73.9 - Peripheral vascular disease, unspecified (ICD-10) Hypertension ?I10 - Essential (primary) hypertension (ICD-10) Surgical History (Updated 06/24/23 @ 13:48 by Katalina Chacko RN) Status post insertion of iliac artery stent ?Z95.828 - Presence of other vascular implants and grafts (ICD-10) H/O endarterectomy ?Z98.890 - Other specified postprocedural states (ICD-10) Family History (Updated 06/24/23 @ 13:06 by Katalina Chacko RN) Father Family history of CHF (congestive heart failure) Mother Family history of COPD (chronic obstructive pulmonary disease) Family history of diabetes mellitus Social History (Updated 06/24/23 @ 13:07 by Katalina Chacko RN) Within the past year, how often did you have a drink containing alcohol: monthly or less Smoking status: Current every day smoker Non-prescribed substance use: cannabis (any form) Highest level of school completed/degree received: 12th grade, no diploma Exam Constitutional Vital Signs, click to edit/add: Last Vital Signs Temp 97.9 F 06/26/23 05:48 Pulse 88 06/26/23 05:57 Resp 18 06/26/23 05:48 BP 128/71 06/26/23 05:48 Pulse Ox 96 06/26/23 05:48 O2 Del Method Nasal Cannula 06/26/23 05:48 O2 Flow Rate 2 06/26/23 05:48 Course Course Hospital Course: Patient was admitted with failed outpatient treatment of pneumonia. Progressive shown on x-ray. Patient had hypoxia on admission. Vital signs improved throughout the hospital stay. He is down to his baseline of 2 to 3 L. Sputum culture is still pending. He did improve faster than anticipated. His evaluation yesterday suspected he would be here 2-3 more days but he is much improved this morning. His lungs are fairly clear and his egophony has resolved. So with being back to his baseline supplemental oxygen of 2 L he will be discharged home in improving condition. Medications see list. Follow-up with me in the office next week. Vital Signs Vital signs: Vital Signs Temperature 97.7 F 06/24/23 12:31 Pulse Rate 85 06/24/23 12:31 Respiratory Rate 22 06/24/23 12:31 Blood Pressure 111/67 06/24/23 12:31 Pulse Oximetry 92 L 06/24/23 12:31 Oxygen Delivery Method Room Air 06/24/23 12:31 Oxygen Delivery Flow Rate 3 06/24/23 12:31 Temperature 97.9 F 06/26/23 05:48 Pulse Rate 88 06/26/23 05:57 Respiratory Rate 18 06/26/23 05:48 Blood Pressure 128/71 06/26/23 05:48 Pulse Oximetry 96 06/26/23 05:48 Oxygen Delivery Method Nasal Cannula 06/26/23 05:48 Oxygen Delivery Flow Rate 2 06/26/23 05:48 Medical Decision Making [facility] [place] Narrative Medical decision making narrative: The patient was intubated by me and vent settings were given to the respiratory therapist. The care was turned over to Dr. Bailey. I s not completely clear at this point.uspect that the patient was having hemoptysis rather than hematemesis but this is not completely clear at this point. Subsequently a great deal of blood was suctioned out through the endotracheal tube. Lab Data Labs: Lab Results 06/24/23 06/24/23 06/25/23 Range/Units 13:05 13:26 05:05 WBC 11.6 H 5.9 (4.0-11.0) 10^3/uL RBC 3.54 L 3.52 L (4.70-6.10) 10^6/uL Hgb 10.6 L 10.2 L (14.0-18.0) g/dL Hct 32.3 L 32.6 L (42.0-54.0) % MCV 91.2 92.6 (80.0-94.0) fL MCH 29.9 29.0 (25.9-34.0) pg MCHC 32.8 31.3 (29.9-35.2) g/dL RDW 14.6 14.6 (11.0-15.0) % Plt Count 210 204 (150-450) 10^3/uL MPV 9.9 9.7 (9.5-13.5) fL Neut % (Auto) 87.5 H 86.8 H (43.0-75.0) % Lymph % (Auto) 8.1 L 11.0 L (20.5-60.0) % [place] % (Auto) 3.3 1.0 L (1.7-12.0) % Eos % (Auto) 0.2 L 0.0 L (0.9-7.0) % Baso % (Auto) 0.1 L 0.0 L (0.2-2.0) % Neut # (Auto) 10.2 H 5.2 (1.4-6.5) 10^3/uL Lymph # (Auto) 0.9 L 0.7 L (1.2-3.8) 10^3/uL [place] # (Auto) 0.4 0.1 L (0.3-0.8) 10^3/uL Eos # (Auto) 0.0 0.0 (0.0-0.7) 10^3/uL Baso # (Auto) 0.0 0.0 (0.0-0.1) 10^3/uL Abs Immat Gran (auto) 0.09 H 0.07 H (0.00-0.03) 10^3/uL Imm/Tot Granulo (auto) 0.8 H 1.2 H (0.0-0.5) % Puncture Site R radial ABG pH 7.442 (7.350-7.450) ABG pCO2 35.6 (35.0-45.0) mmHg ABG pO2 131.0 H (80.0-100.0) mmHg ABG HCO3 24.3 (22.0-26.0) mmol/L ABG O2 Saturation 99.9 % ABG Base Excess 0.1 (-2.0-2.0) mmol/L Atif Test Positive (POSITIVE) O2 Liters/Min 3 Sodium 133 L 135 L (136-145) mmol/L Potassium 4.0 4.4 (3.5-5.1) mmol/L Chloride 99 102 (98-107) mmol/L Carbon Dioxide 25.1 28.7 (21.0-32.0) mmol/L Anion Gap 12.9 8.7 BUN 16.0 18.0 (7.0-18.0) mg/dL Creatinine 0.76 0.86 (0.70-1.30) mg/dL Est GFR ( Amer) >60 >60 (>=60) Est GFR (Non-Af Amer) >60 >60 (>=60) BUN/Creatinine Ratio 21.1 20.9 Glucose 112 H 147 H (74-106) mg/dL Lactate 0.9 (0.4-2.0) mmol/L Calcium 8.5 8.3 L (8.5-10.1) mg/dL Magnesium 1.9 (1.8-2.4) mg/dL Total Bilirubin 0.9 0.5 (0.2-1.0) mg/dL AST 14 L 7 L (15-37) U/L ALT 17 14 L (16-63) U/L Alkaline Phosphatase 70 64 (46-116) U/L Troponin I High Sens 7.9 5.3 (4.0-76.1) pg/mL C-Reactive Protein 6.69 H (<=0.30) mg/dL NT-Pro-B Natriuret Pep 409.0 287.0 (<=900.0) pg/mL Total Protein 6.5 6.3 L (6.4-8.2) g/dL Albumin 2.7 L 2.5 L (3.4-5.0) g/dL Globulin 3.8 3.8 g/dL Albumin/Globulin Ratio 0.7 0.7 06/26/23 Range/Units 05:13 WBC 13.8 H (4.0-11.0) 10^3/uL RBC 3.42 L (4.70-6.10) 10^6/uL Hgb 10.0 L (14.0-18.0) g/dL Hct 31.8 L (42.0-54.0) % MCV 93.0 (80.0-94.0) fL MCH 29.2 (25.9-34.0) pg MCHC 31.4 (29.9-35.2) g/dL RDW 14.6 (11.0-15.0) % Plt Count 237 (150-450) 10^3/uL MPV 10.0 (9.5-13.5) fL Neut % (Auto) 91.7 H (43.0-75.0) % Lymph % (Auto) 4.0 L (20.5-60.0) % [place] % (Auto) 3.3 (1.7-12.0) % Eos % (Auto) 0.0 L (0.9-7.0) % Baso % (Auto) 0.1 L (0.2-2.0) % Neut # (Auto) 12.6 H (1.4-6.5) 10^3/uL Lymph # (Auto) 0.6 L (1.2-3.8) 10^3/uL [place] # (Auto) 0.5 (0.3-0.8) 10^3/uL Eos # (Auto) 0.0 (0.0-0.7) 10^3/uL Baso # (Auto) 0.0 (0.0-0.1) 10^3/uL Abs Immat Gran (auto) 0.12 H (0.00-0.03) 10^3/uL Imm/Tot Granulo (auto) 0.9 H (0.0-0.5) % Puncture Site ABG pH (7.350-7.450) ABG pCO2 (35.0-45.0) mmHg ABG pO2 (80.0-100.0) mmHg ABG HCO3 (22.0-26.0) mmol/L ABG O2 Saturation % ABG Base Excess (-2.0-2.0) mmol/L Atif Test (POSITIVE) O2 Liters/Min Sodium 138 (136-145) mmol/L Potassium 4.4 (3.5-5.1) mmol/L Chloride 105 (98-107) mmol/L Carbon Dioxide 25.3 (21.0-32.0) mmol/L Anion Gap 12.1 BUN 19.0 H (7.0-18.0) mg/dL Creatinine 0.98 (0.70-1.30) mg/dL Est GFR ( Amer) >60 (>=60) Est GFR (Non-Af Amer) >60 (>=60) BUN/Creatinine Ratio 19.4 Glucose 156 H (74-106) mg/dL Lactate (0.4-2.0) mmol/L Calcium 8.7 (8.5-10.1) mg/dL Magnesium (1.8-2.4) mg/dL Total Bilirubin 0.2 (0.2-1.0) mg/dL AST 14 L (15-37) U/L ALT 14 L (16-63) U/L Alkaline Phosphatase 57 (46-116) U/L Troponin I High Sens 7.3 (4.0-76.1) pg/mL C-Reactive Protein (<=0.30) mg/dL NT-Pro-B Natriuret Pep 541.0 (<=900.0) pg/mL Total Protein 6.1 L (6.4-8.2) g/dL Albumin 2.4 L (3.4-5.0) g/dL Globulin 3.7 g/dL Albumin/Globulin Ratio 0.6 Discharge Plan Discharge Disposition: Home, Self-Care Discharge Medications: New levofloxacin 750 mg tablet 750 mg PO DAILY 14 Days Qty: 14 0RF prednisone 10 mg tablet 50 mg PO DAILY Qty: 47 0RF Rx Instructions: 5/day for 3 days. 4/day for 3 days, 3/day for 3 days, 2/day for 3 days, 1/day for 3 days, 1/2 /day for 4 days Continued alprazolam [Xanax] 0.5 mg tablet 0.5 mg PO TID PRN (Reason: anxiety) atorvastatin [Lipitor] 40 mg tablet 40 mg PO QPM carvedilol [Coreg] 6.25 mg tablet 6.25 mg PO BID Rx Instructions: must administer with a meal/food cholecalciferol (vitamin D3) 50 mcg (2,000 unit) capsule 2,000 unit PO DAILY duloxetine [Cymbalta] 30 mg capsule,delayed release(DR/EC) 30 mg PO DAILY Trelegy Ellipta 200-62.5-25 mcg blister with device 1 inh inhalation DAILY gabapentin [Neurontin] 600 mg tablet 600 mg PO BID omeprazole 40 mg capsule,delayed release(DR/EC) 40 mg PO DAILY Rx Instructions: BEFORE BREAKFAST prednisone 10 mg tablet 20 mg PO DAILY valsartan [Diovan] 80 mg tablet 80 mg PO DAILY prasugrel 10 mg tablet 10 mg PO DAILY oxycodone 10 mg tablet 10 mg PO Q4H PRN (Reason: pain) albuterol sulfate 2.5 mg /3 mL (0.083 %) solution for nebulization 2.5 mg inhalation Q4H PRN (Reason: shortness of breath or wheezing) Forms: Portal Instructions Referrals: Miky Bailey MD [Primary Care Provider] - Procedures ICU Intubation Intubation Sedative: etomidate Mg given: 20 Laryngoscope: Herminia (four) ET tube size: 7 ET tube uncuffed: No Tube secured depth (cm): 24 Tube secured location: teeth Tube placement confirmation: visualized tube passing through cords, equal breath sounds bilaterally and confirmation by capnometry Patient tolerated procedure: no complications Intubation complications: difficult intubation Additional comments: 1st attempt to intubate was not successful due to not being able to visualize the cords with direct laryngoscopy. There was a great deal of blood in the hypopharynx obscuring the cords and it was in the larynx as well. A great deal of blood was suctioned out and then the patient was bagged and then he was intubated with a four Mac blade.
--- NOTE | 2023-06-26 08:33 | PC.NURSE ---
Patient called out around 0710 and asked for a shower. Relief Worker told him we were getting report and the aide would be in shortly to help him. Shortly after, he called out again and told corporate secretary he was having trouble breathing. Relief Worker was standing by the corporate secretary and went right to room immediately. He was coughing up blood and had great labored breathing. Respiratory on floor and newspaper writer called for them to come to room. Relief Worker yelled for corporate secretary to call Dr Bailey. Code called. Patient then transferred to ICU after intubation and stablizied. Dr Bailey states he called patient's Shonna THOMSON.
[2023-06-26 08:34] LABS: Hematocrit 35.4 % (42.0-54.0); Hemoglobin 10.7 g/dL (14.0-18.0); Mean Corpuscular HGB Conc 30.2 g/dL (29.9-35.2); Mean Corpuscular Hemoglobin 29.7 pg (25.9-34.0); Mean Corpuscular Volume 98.3 fL (80.0-94.0); Mean Platelet Volume 9.9 fL (9.5-13.5); Platelet Count 323 10^3/uL (150-450); Red Cell Distribution Width 14.3 % (11.0-15.0); White Blood Count 25.7 10^3/uL (4.0-11.0)
[2023-06-26] MEDS: OCTREOTIDE ACETATE IV (08:35)
[2023-06-26] MEDS: SODIUM CHLORIDE 0.9% IV (08:35)
[2023-06-26] MEDS: OCTREOTIDE ACETATE 100 MCG/ML VIAL 50 MCG IV (08:35)
[2023-06-26 08:40] LABS: HCO3 ABG 20.5 mmol/L (22.0-26.0)
[2023-06-26 08:41] LABS: Base Excess ABG -12.1 mmol/L (-2.0-2.0)
[2023-06-26 08:42] LABS: ABG PCO2 99.8 mmHg (35.0-45.0); Allen Test POS (POSITIVE); pH ABG 6.921 (7.350-7.450)
[2023-06-26 08:47] LABS: INR 0.96; Partial Thromboplastin Time 32.5 sec (22.3-36.2); Prothrombin Time 10.2 sec (9.0-11.6)
[2023-06-26 08:54] LABS: Troponin I High Sensitivity 25.4 pg/mL (4.0-76.1)
--- NOTE | 2023-06-26 08:55 | XR_ITS ---
The [address] [address] Patient Name: KEITH MENDES MRN: [id number] date: 1960 Sex: M Assigned Patient Location: ICU Current Patient Location: ICU Accession/Order Number: [id number] Exam Date: 06/26/2023 08:55 Report Date: 06/26/2023 09:23 At the request of: VALE CARRANZA Procedure: XR chest 1V EXAM: XR chest 1V HISTORY: pneumothorax COMPARISON: Chest study dated 07/06/2023 performed earlier today. TECHNIQUE: AP view of the chest was obtained with portable technique at 0902 hours. FINDINGS: Heart and mediastinal contours are unremarkable in appearance. Patchy infiltrate in the right upper lung field similar to the prior study. Mild patchy infiltrate suggested in the left midlung field similar to prior study. No obvious pneumothorax. Overlying opacity can be correlated clinically. Endotracheal tube position stable and unremarkable. Bony structures appear grossly intact. Generalized COPD. XR/XR chest 1V IMPRESSION: Infiltrate in the right upper lung field similar to prior study. Mild patchy infiltrative changes in the left mid lung field similar to prior study. COPD. Endotracheal tube position stable and unremarkable. No obvious pneumothorax. Electronically authenticated by: JOSEPH BERNAL Date: 06/26/2023 09:23
[2023-06-26 09:12] LABS: Band Neutrophils Absolute 1.3 10^3/uL (0.0-0.3); Lymphocytes Absolute Manual 3.85 10^3/uL (1.20-3.80); Monocytes Absolute Manual 1.54 10^3/uL (0.30-0.80); Segmented Neut Absolute Manual 19.01 10^3/uL (1.4-6.5)
[2023-06-26] MEDS: PROPOFOL 1,000 MG/100 ML VIAL 19.584 MG IV (10:00)
--- NOTE | 2023-06-26 10:07 | CM.NOTE ---
Pt being transferred to [facility]. Spent time with family to provided support and answer questions. Allowed family at bedside to see pt, family then taken to waiting area. Family denies other needs at this time.
[2023-06-26 10:10] LABS: ABG PCO2 71.9 mmHg (35.0-45.0); HCO3 ABG 23.4 mmol/L (22.0-26.0); pH ABG 7.121 (7.350-7.450)
[2023-06-26 10:11] LABS: Allen Test POSITIVE (POSITIVE); Base Excess ABG -5.9 mmol/L (-2.0-2.0); O2 Mode VENT; Oxygen Saturation ABG 99.7 %
[2023-06-26 10:13] LABS: Fractionated Inspired Oxygen 60 %; Puncture Site RR
[2023-06-26] MEDS: NOREPINEPHRINE BITARTRATE 4 MG in DEXTROSE 5 % IN WATER 250 ML 30.48 MG IV (10:15)
[2023-06-26 10:24] LABS: Hematocrit 28.4 % (42.0-54.0); Hemoglobin 8.7 g/dL (14.0-18.0); Mean Corpuscular HGB Conc 30.6 g/dL (29.9-35.2); Mean Corpuscular Hemoglobin 29.4 pg (25.9-34.0); Mean Corpuscular Volume 95.9 fL (80.0-94.0); Mean Platelet Volume 9.6 fL (9.5-13.5); Platelet Count 338 10^3/uL (150-450); Red Blood Count 2.96 10^6/uL (4.70-6.10); Red Cell Distribution Width 14.4 % (11.0-15.0); White Blood Count 25.9 10^3/uL (4.0-11.0)
[2023-06-26 10:37] LABS: Troponin I High Sensitivity 202.9 pg/mL (4.0-76.1)
--- NOTE | 2023-06-26 11:03 | W.PM.PROCNOT ---
Date of procedure: 06/26/23 Pre-op diagnosis: Massive hemoptysis Procedure: Procedure: Emergent flexible bronchoscopy with washings Specimens: None Findings: 1. No source of bleeding noted. 2. No gross endobronchial lesions were seen, though the airways were obscured by blood. Description: Informed consent was obtained emergently from the family due to massive hemoptysis and critical condition. Time out was initiated to confirm the correct patient, site, and procedure with all present voicing in the affirmative. Patient was already transferred from med/surg to ICU with utilization of noninvasive monitoring.? Sedation & anesthesia was managed by me - he was already on a propofol gtt and an additional 4mg of Versed IVP was given during the procedure.? A towel was placed over the patient's eyes to prevent spillage of secretions.? A 7.0 endotracheal tube was previously inserted by Dr. Gar from the ER.? The bronchoscope was inserted through the endotracheal tube to the distal tracheal. A large amount of bright red blood was present in the airways which obscured observation of the airways. It was cleared with light irrigation of normal saline. The bronchoscope was then advanced through the right main bronchus to the right upper lobe, where the apical, posterior, and anterior segments were visualized after clearing of retained blood.? He has a right upper lobe cavitary lesion and it was questionable that this could be the source of hemoptysis. The area was observed for a minute and no pulsating bleeding or oozing of blood was noted. The right middle and lower lobes, along with the left upper and lower lobes with their respective segments were visualized without evidence of active bleeding. Retained blood was suctioned from the airways. The bronchoscope was withdrawn. Total procedure time was 12 minutes, with moderate sedation managed by me. Anesthesia: Moderate Sedation (Patient was on propofol drip. Versed 4mg IVP given.) Surgeon: Soto Bull Estimated blood loss (mL): 10 (This was blood already present in the airways) Pathology: none sent Condition: critical Disposition: ICU
--- NOTE | 2023-06-26 11:16 | P.PLPN_ITS ---
Progress Note: A&P Assessment and Plan (1) HCAP (healthcare-associated pneumonia): Assessment and Plan: 1.? Massive hemoptysis.? Source lung? Or hematemesis with aspiration?? Bronchoscopy did not show any active bleeding ? needs further evaluation at tertiary care center.? No history of esophageal varices, though had history of EtOH use. 2.? Hemorrhagic shock.? Hb dropped 2g over 2 hours.? Fluids and Levophed started ? may require PRBC transfusion. 3.? Acute hypercapnic respiratory failure.? Secondary to impaired alveolar ventilation from retained blood.? Some improvement after bronchoscopy clearing large airway blood.? Ventilator adjusted. 4.? MRSA pneumonia.? Sputum culture returned positive for MRSA. 5.? Acute exacerbation of COPD.? 6.? Tobacco abuse. 7.? History of empyema and lung abscess. Plan Patient is critically ill with massive hemoptysis vs. hematemesis with development of acute hypercapnic respiratory failure and hemorrhagic shock. He requires care from a tertiary care facility as [facility] lacks needed resources and specialists (e.g. thoracic surgery, interventional radiology). 40 minutes critical care time spent on patient (excluding bronchoscopy time). Subjective Subjective Interval history: Patient developed massive hemoptysis this morning, CODE BLUE called for respirat ory arrest. Intubated with 7.0 ETT, arterial line, and femoral line inserted by Dr. Gar from ER. Bright red blood suctioned from ETT, and darker blood noted from OGT. He developed acute hypercapnic respiratory failure - difficulty bagging him - no pneumothorax noted. Emergent bronchoscopy was performed, but no active bleeding was seen (questioned source could be the RUL cavtiary lesion). Blood pressure dropped, Levophed started. Labs revealed drop in Hb over 2 hours from 10.7 to 8.7g/dL. Patient was transported via helicopter to [facility]. Exam Constitutional Vital Signs, click to edit/add: Last Vital Signs Temp 97.9 F 06/26/23 05:48 Pulse 88 06/26/23 05:57 Resp 18 06/26/23 05:48 BP 128/71 06/26/23 05:48 Pulse Ox 96 06/26/23 05:48 O2 Del Method Nasal Cannula 06/26/23 05:48 O2 Flow Rate 2 06/26/23 05:48 FiO2 60 06/26/23 10:47 Exam limitations: altered mental status General appearance: anxious and patient mechanically ventilated Nutritional appearance: underweight HENMT Other: ETT 7.0 filled with bright red blood, large amount of darker blood noted from OGT. Chest Chest: symmetrical chest wall rise; no crepitus, no sternal flail and no ecchymosis Respiratory Other: Diminished breath sounds, mild crackles upper lung joy, distant in bases. No lateralization. Cardio Rate: tachycardic Rhythm: regular rhythm Extremity Other: Could not palpate bilateral tibial or dorsalis pedis pulses Neuro Other: Withdraws to noxious stimuli. Psych Other: Sedated
[2023-06-26] MEDS: MIDAZOLAM HCL 2 MG/2 ML VIAL 4 MG IV (11:30)
[2023-06-26] MEDS: PROPOFOL 200 MG/20 ML VIAL IVP (13:27)
--- NOTE | 2023-06-26 13:37 | PC.NURSE ---
Patient was transferred over to the ICU from [facility] d/t increased difficulty in breathing and vomiting blood. Patient was intubated in [facility] unit. Propofol bolus given and propofol drip was started on [facility] unit. Bedside report was received from ARCADIO Hercules. Patient was initially set up for discharge today from a direct admission of [facility]. Family was made aware of patient's change in condition and transfer to the ICU by Dr. Bailey. Dr. Bailey was at the bedside with patient's transfer to the unit. Dr. Bailey updated family at bedside.Patient was transferred to the ICU bed while RT was bagging patient. Patient was requiring frequent suction in which bright red frothy blood was noted. OGT inserted to 60 cm and dark blood immediately filled the tube. Patient was set up to suction. Arterial line was inserted by Dr. Mary Ellen Mo for accurate BP measuring and frequent ABG draws. Timeout was performed with physician at bedside. Central line was inserted by Dr. Marcelo Gar in the left femoral artery, due difficult IV access and need for sedation with possible pressors. Verbal orders were given by Dr. Saw Bull for patient to have 1L Bolus of normal saline due to blood pressure dropping. Dr. Bailey placed orders for norepinephrine. Bedside bronchoscopy was performed by Dr. Saw Bull, see note. Patient required further sedation for procedure, and 4mg Versed was administered. Norepinephrine was started at 8 mcg/min. Patient was transferred to [facility] room 3213 with the accepting physician Dr. Yoandy Marino. Phone report was called to ARCADIO Rodarte [phone]. [facility] Flight nurse given bedside report for patient transfer. Family remained at bedside and was made aware of his transfer to [facility], belongings were given to family.
== END 2023-06-26 11:00 | disposition short-term general hospital (02) | DRG 208 ==
LOC: MS 06-26 07:23 → ICU 06-26 07:57
PROVIDERS: Admitting Provider Family Medicine; PCP Family Medicine; Visit Provider Family Medicine
DX: J15.212 Pneumonia due to Methicillin resistant Staphylococcus aureus (principal); J96.01 Acute respiratory failure with hypoxia; J96.02 Acute respiratory failure with hypercapnia; R57.8 Other shock; J44.0 Chronic obstructive pulmonary disease with (acute) lower respiratory infection; J44.1 Chronic obstructive pulmonary disease with (acute) exacerbation; E44.0 Moderate protein-calorie malnutrition; Z68.1 Body mass index [BMI] 19.9 or less, adult; E87.1 Hypo-osmolality and hyponatremia; D62 Acute posthemorrhagic anemia; R04.2 Hemoptysis; Y95 Nosocomial condition; D50.9 Iron deficiency anemia, unspecified; F41.1 Generalized anxiety disorder; I10 Essential (primary) hypertension; E11.65 Type 2 diabetes mellitus with hyperglycemia; E11.42 Type 2 diabetes mellitus with diabetic polyneuropathy; E11.51 Type 2 diabetes mellitus with diabetic peripheral angiopathy without gangrene; F17.200 Nicotine dependence, unspecified, uncomplicated; I25.10 Atherosclerotic heart disease of native coronary artery without angina pectoris; Z79.02 Long term (current) use of antithrombotics/antiplatelets; Z79.899 Other long term (current) drug therapy; Z88.1 Allergy status to other antibiotic agents; Z85.828 Personal history of other malignant neoplasm of skin; Z83.3 Family history of diabetes mellitus; Z82.5 Family history of asthma and other chronic lower respiratory diseases; Z82.49 Family history of ischemic heart disease and other diseases of the circulatory system
CPT/HCPCS: 31500; 36415; 36600; 51702; 71045; 71046; 80053; 82805; 83605; 83735; 83880; 84484; 85025; 85027; 85610; 85730; 86140; 86850; 86900; 86901; 87040; 87070; 87205; 92950; 93306; 94002; 94640; 94667; 94668; 94761; 96365; 96366; 96367; 96368; 96375; 96376; 97161; 97165; J2354; J2704; J2930

== ENCOUNTER 2023-07-30 16:50 | Outpatient (OUT) | payer BC, SELFPAY ==
--- NOTE | 2023-07-30 | US_ITS ---
[place] [id number] Patient Name: KEITH MENDES MRN: [id number] date: 1960 Sex: M Assigned Patient Location: US Current Patient Location: Accession/Order Number: [id number] Exam Date: 07/30/2023 17:09 Report Date: 07/31/2023 07:16 At the request of: VALE CARRANZA Procedure: US venous doppler LE RT EXAM: US venous doppler LE RT HISTORY: Atrial fibrillation, I48.91 COMPARISON: None. TECHNIQUE: Grayscale, color and Doppler ultrasound FINDINGS: Region: Right leg Thrombus: None Flow: Normal Augmentation: Normal Compressibility: Normal Other. The right great saphenous vein is not visualized consistent with known harvesting US/US venous doppler LE RT IMPRESSION: No deep vein thrombus in the right leg Electronically authenticated by: BO CARTER Date: 07/31/2023 07:16
== END 2023-07-30 16:51 | disposition home or self-care (01) ==
LOC: US 16:52
PROVIDERS: PCP Family Medicine; Visit Provider Family Medicine
DX: I48.91 Unspecified atrial fibrillation (principal); R60.0 Localized edema; L53.9 Erythematous condition, unspecified
CPT/HCPCS: 93971

== ENCOUNTER 2023-08-06 12:17 | Outpatient (OUT) | payer BC, SELFPAY ==
--- NOTE | 2023-08-06 | XR_ITS ---
The [address] [address] Patient Name: KEITH MENDES MRN: [id number] date: 1960 Sex: M Assigned Patient Location: RAD Current Patient Location: RAD Accession/Order Number: [id number] Exam Date: 08/06/2023 12:35 Report Date: 08/06/2023 13:08 At the request of: VALE CARRANZA Procedure: XR ribs BI min 4V w CXR1V EXAMINATION: XR ribs BI min 4V w CXR1V HISTORY: History of falling COMPARISON: All/03/11 FINDINGS: LUNGS: Changing configuration of density in the right upper lobe could represent resolving pneumonia. PLEURA: No pneumothorax. Blunting of the costophrenic angles, scar versus tiny pleural effusions MEDIASTINUM: No visible mass or adenopathy. CARDIAC: No cardiomegaly or cardiac silhouette abnormality. RIBS: Fractures of the left lateral seventh and left posterior eighth ribs, calcification consistent with subacute injuries, stable OTHER: Negative. XR/XR ribs BI min 4V w CXR1V IMPRESSION: Changing configuration of right upper lobe infiltrate possibly resolving pneumonia. Continued surveillance recommended to document resolution Stable subacute fractures left lateral seventh and left posterior eighth ribs Electronically authenticated by: BO CARTER Date: 08/06/2023 13:08
== END 2023-08-06 12:18 | disposition home or self-care (01) ==
LOC: RAD 12:21
PROVIDERS: PCP Family Medicine; Visit Provider Family Medicine
DX: R07.81 Pleurodynia (principal); Z91.81 History of falling; S22.42XA Multiple fractures of ribs, left side, initial encounter for closed fracture
CPT/HCPCS: 71111

== ENCOUNTER 2023-08-20 12:03 | Outpatient (OUT) | payer BC, SELFPAY ==
--- NOTE | 2023-08-20 12:32 | XR_ITS ---
The [place] [id number] Patient Name: KEITH MENDES MRN: [id number] date: 1960 Sex: M Assigned Patient Location: LAB Current Patient Location: LAB Accession/Order Number: [id number] Exam Date: 08/20/2023 12:45 Report Date: 08/20/2023 13:05 At the request of: VALE CARRANZA Procedure: XR chest 2V EXAM: XR chest 2V HISTORY: shortness of breath R06.02 COMPARISON: None. TECHNIQUE: PA and lateral views of the chest. FINDINGS: The cardiomediastinal silhouette is normal. Bilateral pleural effusions. Suggestion of COPD. The osseous structures are intact. XR/XR chest 2V IMPRESSION: Bilateral pleural effusions. Suggestion of COPD. Electronically authenticated by: JEANNIE SANDERS Date: 08/20/2023 13:05
[2023-08-20 12:40] LABS: Basophils Absolute Auto 0.1 10^3/uL (0.0-0.1); Basophils Percent Auto 0.6 % (0.2-2.0); Eosinophils Absolute Auto 0.3 10^3/uL (0.0-0.7); Eosinophils Percent Auto 3.6 % (0.9-7.0); Hematocrit 30.8 % (42.0-54.0); Hemoglobin 9.3 g/dL (14.0-18.0); Immature Granulocytes Abs Auto 0.03 10^3/uL (0.00-0.03); Immature Granulocytes Pct Auto 0.3 % (0.0-0.5); Lymphocytes Absolute Auto 1.7 10^3/uL (1.2-3.8); Lymphocytes Percent Auto 18.4 % (20.5-60.0); Mean Corpuscular HGB Conc 30.2 g/dL (29.9-35.2); Mean Corpuscular Hemoglobin 27.8 pg (25.9-34.0); Mean Corpuscular Volume 91.9 fL (80.0-94.0); Mean Platelet Volume 9.2 fL (9.5-13.5); Monocytes Absolute Auto 0.8 10^3/uL (0.3-0.8); Monocytes Percent Auto 8.1 % (1.7-12.0); Neutrophils Absolute Auto 6.5 10^3/uL (1.4-6.5); Platelet Count 396 10^3/uL (150-450); Red Blood Count 3.35 10^6/uL (4.70-6.10); Red Cell Distribution Width 14.8 % (11.0-15.0); White Blood Count 9.4 10^3/uL (4.0-11.0)
[2023-08-20 12:47] LABS: Ammonia 28 umol/L (11-32)
[2023-08-20 13:29] LABS: Alanine Aminotransferase 13 U/L (16-63); Albumin Globulin Ratio 0.4; Albumin Level 2.3 g/dL (3.4-5.0); Alkaline Phosphatase 130 U/L (46-116); Anion Gap 13.2; Aspartate Amino Transferase 32 U/L (15-37); BUN Creatinine Ratio 10.2; Bilirubin Total 0.8 mg/dL (0.2-1.0); Calcium 9.1 mg/dL (8.5-10.1); Carbon Dioxide 27.5 mmol/L (21.0-32.0); Chloride 100 mmol/L (98-107); Estimated GFR (African America >60 (>=60); Estimated GFR (Non-African Ame >60 (>=60); Globulin 5.8 g/dL; Glucose 101 mg/dL (74-106); Sodium 136 mmol/L (136-145); Total Protein 8.1 g/dL (6.4-8.2); Troponin I High Sensitivity 14.5 pg/mL (4.0-76.1)
[2023-08-20 13:44] LABS: Potassium 4.7 mmol/L (3.5-5.1)
== END 2023-08-20 12:04 | disposition home or self-care (01) ==
LOC: LAB 12:04
PROVIDERS: PCP Family Medicine; Visit Provider Family Medicine
DX: R06.02 Shortness of breath (principal); J44.9 Chronic obstructive pulmonary disease, unspecified; I10 Essential (primary) hypertension; J90 Pleural effusion, not elsewhere classified
CPT/HCPCS: 36415; 71046; 80053; 82140; 83880; 84484; 85025

== ENCOUNTER 2023-08-31 12:20 | Outpatient (OUT) | payer BC, SELFPAY ==
[2023-08-31 15:06] LABS: Influenza Virus A Antigen Negative; Influenza Virus B Antigen Negative; Internal Control Within Normal Limits; Respiratory Syncytial Virus Not Detected (NOT DETECTE); SARS-CoV-2 Ag NEGATIVE (NEGATIVE)
[2023-08-31 15:51] LABS: SARS-CoV-2 NAA NOT DETECTED (NOT DETECTE)
== END 2023-08-31 12:21 | disposition home or self-care (01) ==
LOC: LAB 12:22
PROVIDERS: PCP Family Medicine; Visit Provider Family Medicine
DX: J44.9 Chronic obstructive pulmonary disease, unspecified (principal)
CPT/HCPCS: 87420; 87635; 87804; 87811

== ENCOUNTER 2023-09-08 09:04 | Outpatient (OUT) | payer BC, SELFPAY ==
--- NOTE | 2023-09-08 09:27 | XR_ITS ---
The [address] [address] Patient Name: KEITH MENDES MRN: [id number] date: 1960 Sex: M Assigned Patient Location: RAD Current Patient Location: RAD Accession/Order Number: [id number] Exam Date: 09/08/2023 09:20 Report Date: 09/08/2023 13:27 At the request of: VALE CARRANZA Procedure: XR chest 2V EXAM: XR chest 2V HISTORY: Acute Exacerbation Of Chronic Obstructive Airways Disease COMPARISON: 08/20/2023 TECHNIQUE: Upright PA and lateral chest x-ray FINDINGS: The heart is not enlarged and there is mild prominence of the central pulmonary vasculature. Coronary artery stents are again noted. Pleural and parenchymal scarring is seen at the right apex with a cavity or bulla. There is blunting of both costophrenic angles which may be due to small effusions or pleural thickening. Flattening of the hemidiaphragms indicates COPD. Chronic pleural-parenchymal changes are also seen at the left lung base laterally. Diffuse osteopenia is noted. XR/XR chest 2V IMPRESSION: Chronic changes are present with COPD. Pleural and parenchymal scarring at the right apex with a cavity or bulla. Blunting of both costophrenic angles remains unchanged and is probably pleural thickening although small effusions are difficult to entirely exclude. No acute infiltrate or overt cardiac decompensation is identified, and the overall appearance of the chest has not changed significantly. Electronically authenticated by: DEBRA MILLS Date: 09/08/2023 13:27
== END 2023-09-08 09:05 | disposition home or self-care (01) ==
LOC: RAD 09:08
PROVIDERS: PCP Family Medicine; Visit Provider Family Medicine
DX: J44.1 Chronic obstructive pulmonary disease with (acute) exacerbation (principal)
CPT/HCPCS: 71046

== ENCOUNTER 2023-09-13 09:49 | Outpatient (OUT) | payer BC, SELFPAY | END 2023-09-13 09:50 | disposition home or self-care (01) | LOC: LAB 09-14 09:50 | PROVIDERS: PCP Family Medicine; Visit Provider Family Medicine | DX: J06.9 Acute upper respiratory infection, unspecified (principal) | CPT/HCPCS: 87070; 87106; 87205 ==

== ENCOUNTER 2023-10-14 13:26 | Inpatient (IN) | payer BC, SELFPAY ==
[2023-10-14] VITALS (40 sets, daily range): BP systolic 84–168; BP diastolic 51–144; PULSE 79–211; RESP 7–44; TEMP 36.3–36.5; O2SAT 86–99; BMI 20.4; BMI 20.3
--- NOTE | 2023-10-14 13:30 | ECG_ITS ---
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
--- NOTE | 2023-10-14 13:30 | CT_ITS ---
[address] [address] Patient Name: KEITH MENDES MRN: [id number] date: 1960 Sex: M Assigned Patient Location: ER Current Patient Location: Accession/Order Number: [id number] Exam Date: 10/14/2023 14:47 Report Date: 10/14/2023 15:29 At the request of: ARTUR MENDOZA Procedure: CT angio chest EXAMINATION: CT angio chest HISTORY: Hemoptysis , cough, increasing shortness of breath and chest pain COMPARISON: CT chest without contrast 06/23/2023 TECHNIQUE: Multi-planar CT images were created with IV contrast. Axial, Coronal, and Sagittal images. Dose reduction techniques were achieved by using automated exposure control and/or adjustment of mA and/or kV according to patient size and/or use of iterative reconstruction technique. 3-D reconstruction was performed on a separate workstation. FINDINGS: VASCULATURE: No pulmonary embolism or abnormal opacity. LUNGS: Large right apical cavitary lesion with new internal soft tissue components, 1.7 x 1.7 cm. Mild right upper lobe and left lower lobe bronchiectasis. Moderate emphysematous changes bilaterally. Bilateral bronchial wall thickening. PLEURA: No mass, effusion, or pneumothorax. KINJAL: No mass or adenopathy. MEDIASTINUM: No mass or adenopathy. CARDIAC: No enlargement, pericardial effusion, or pericardial thickening. AORTA: No aneurysm or dissection. CHEST WALL: No mass or axillary adenopathy. BONES: Slight anterior wedging of T7 and T8 vertebral bodies without increased trabecular density, but new since prior study. LIMITED ABDOMEN: No suspicious findings. Limited images of the upper abdomen. OTHER: Negative. CT/CT angio chest IMPRESSION: 1. No pulmonary embolism. 2. Bilateral bronchial wall thickening suggestive of bronchiolitis. 3. Moderate emphysematous changes bilaterally with chronic large right apical cavitary lesion which contains new internal soft tissue component; retained secretions versus mass. Follow-up CT chest in 1 month is recommended to document clearing versus stability. 4. Chronic T7 and T8 vertebral body mild compression fractures. Electronically authenticated by: KEITH SU Date: 10/14/2023 15:29
--- NOTE | 2023-10-14 13:34 | ED_ITS ---
HPI - SOB/Dyspnea General Chief Complaint: Shortness of Breath/Dyspnea Stated Complaint: SOB Time Seen by Provider: 10/14/23 13:30 Source: patient Mode of arrival: ambulance Limitations: no limitations History of Present Illness HPI Narrative: Patient is a 63-year-old male with an extensive history of COPD, coronary artery disease and respiratory failure who presents to the emergency department by EMS for increasing shortness of breath over the last 3 days associated with chest pain, productive coughing, hemoptysis. Patient wears oxygen by 3 L nasal cannula at home chronically. EMS noted him to be hypoxic in the mid 80s on those 3 L on their arrival. He has not had any objective fevers or vomiting. He is in moderate distress at initial interview and history is otherwise limited. Related Data Home Medications ?Medication ?Instructions ?Recorded ?Confirmed albuterol sulfate 2.5 mg/3 mL 2.5 mg inhalation Q4H PRN 06/24/23 10/14/23 (0.083 %) solution for nebulization shortness of breath or wheezing alprazolam 0.5 mg tablet (Xanax) 0.5 mg PO TID PRN anxiety 06/24/23 10/14/23 atorvastatin 40 mg tablet (Lipitor) 40 mg PO QPM 06/24/23 10/14/23 carvedilol 6.25 mg tablet (Coreg) 6.25 mg PO BID 06/24/23 10/14/23 cholecalciferol (vitamin D3) 50 2,000 unit PO DAILY 06/24/23 10/14/23 mcg (2,000 unit) capsule duloxetine 30 mg capsule,delayed 30 mg PO DAILY 06/24/23 06/24/23 release (Cymbalta) fluticasone fur. 200 mcg-umeclid 1 inh inhalation DAILY 06/24/23 06/24/23 62.5 mcg-vilant 25 mcg inhalat.powder (Trelegy Ellipta) gabapentin 600 mg tablet 600 mg PO BID 06/24/23 10/14/23 (Neurontin) omeprazole 40 mg capsule,delayed 40 mg PO DAILY 06/24/23 10/14/23 release oxycodone 10 mg tablet 10 mg PO Q4H PRN pain 06/24/23 10/14/23 prasugrel 10 mg tablet 10 mg PO DAILY 06/24/23 10/14/23 prednisone 10 mg tablet 20 mg PO DAILY 06/24/23 10/14/23 valsartan 80 mg tablet (Diovan) 80 mg PO DAILY 06/24/23 10/14/23 Previous Rx's ?Medication ?Instructions ?Recorded levofloxacin 750 mg tablet 750 mg PO DAILY 14 days #14 tabs 06/26/23 prednisone 10 mg tablet 50 mg (5 x 10 mg) PO DAILY #47 tabs 06/26/23 Allergies Allergy/AdvReac Type Severity Reaction Status Date / Time erythromycin base Allergy Severe Verified 03/04/23 16:21 Review of Systems ROS Constitutional Denies: fever or chills Ears, nose, mouth, and throat Reports: nasal congestion Cardiovascular Reports: chest pain Respiratory Reports: shortness of breath, cough, wheezing, pain on inspiration, change in phlegm color and coughing up blood Gastrointestinal Denies: nausea, vomiting or diarrhea Musculoskeletal Denies: back pain Integumentary/Breast Denies: rash Neurological Denies: headache Endocrine Denies: excessive urination PFSH PFS Medical History (Updated 10/14/23 @ 15:37 by ALMA Ram) HCAP (healthcare-associated pneumonia) ?J18.9 - Pneumonia, unspecified organism (ICD-10) Coronary artery disease ?I25.10 - Atherosclerotic heart disease of [place] coronary artery without angina pectoris (ICD-10) Alcohol abuse ?F10.10 - Alcohol abuse, uncomplicated (ICD-10) Atrial fibrillation ?I48.91 - Unspecified atrial fibrillation (ICD-10) Hyperlipidemia ?E78.5 - Hyperlipidemia, unspecified (ICD-10) COPD (chronic obstructive pulmonary disease) ?J44.9 - Chronic obstructive pulmonary disease, unspecified (ICD-10) Pulmonary nodule ?R91.1 - Solitary pulmonary nodule (ICD-10) Anemia ?D64.9 - Anemia, unspecified (ICD-10) Neuropathy ?G62.9 - Polyneuropathy, unspecified (ICD-10) Pancreatitis, chronic ?K86.1 - Other chronic pancreatitis (ICD-10) Osteoarthritis ?M19.90 - Unspecified osteoarthritis, unspecified site (ICD-10) Peripheral vascular disease ?I73.9 - Peripheral vascular disease, unspecified (ICD-10) Hypertension ?I10 - Essential (primary) hypertension (ICD-10) Surgical History (Updated 12/06/23 @ 13:48 by Katalina Chacko RN) Status post insertion of iliac artery stent ?Z95.828 - Presence of other vascular implants and grafts (ICD-10) H/O endarterectomy ?Z98.890 - Other specified postprocedural states (ICD-10) Family History (Updated 06/24/23 @ 13:06 by Katalina Chacko RN) Father Family history of CHF (congestive heart failure) Mother Family history of COPD (chronic obstructive pulmonary disease) Family history of diabetes mellitus Social History Within the past year, how often did you have a drink containing alcohol: monthly or less Smoking status: Current every day smoker Non-prescribed substance use: cannabis (any form) Highest level of school completed/degree received: 12th grade, no diploma Exam Narrative Exam Narrative: Gen.: Awake, alert, Moderate distress Head: Normocephalic, atraumatic ENT: Moist mucous membranes Respiratory: Inspiratory and expiratory wheezing globally, Tachypnea Cardio: Regular rate and rhythm Extremities: Moves extremities equally, no Pedal edema Psych: Normal mood and affect Neuro: No focal neuro deficit Skin: Warm, dry, intact Constitutional Vital Signs, click to edit/add: Last Vital Signs Pulse 98 H 10/14/23 15:29 Resp 20 10/14/23 15:29 BP 100/59 10/14/23 15:29 Pulse Ox 98 10/14/23 15:29 O2 Del Method Nonrebreather 10/14/23 13:29 O2 Flow Rate 10/14/23 13:29 Course Vital Signs Vital signs: Vital Signs Pulse Rate 121 H 10/14/23 13:29 Respiratory Rate 40 H 10/14/23 13:29 Blood Pressure 150/79 H 10/14/23 13:29 Pulse Oximetry 90 L 10/14/23 13:29 Oxygen Delivery Method Nonrebreather 10/14/23 13:29 Oxygen Delivery Flow Rate 10 10/14/23 13:29 Pulse Rate 98 H 10/14/23 15:29 Respiratory Rate 20 10/14/23 15:29 Blood Pressure 100/59 10/14/23 15:29 Pulse Oximetry 98 10/14/23 15:29 Oxygen Delivery Method Nonrebreather 10/14/23 13:29 Oxygen Delivery Flow Rate 10/14/23 13:29 MDM - SOB/Dyspnea MDM Narrative Medical decision making narrative: On arrival to the emergency department patient was placed on Vapotherm for acute respiratory distress and COPD exacerbation. He had improvement with this, Dilaudid and Zofran were given for chest pain and discomfort and additional Ativan was given with improvement. Labs are stable, CT angio of the chest shows no evidence of PE or significant pneumonia. There is a chronic lesion in the right upper lobe that is not worse or different today. Respiratory panel is negative. Patient will be treated for COPD exacerbation, hypoxia and respiratory distress with admission to ICU for further evaluation and treatment by Dr. Bailey. He requested Zosyn and Levaquin for antibiotic coverage. Blood cultures are pending. Patient is much more stable at time of admission. Medical Records Attestation: I reviewed the patient's medical records. Lab Data Attestation: I reviewed the patient's lab results. Labs: Lab Results 10/14/23 10/14/23 10/14/23 Range/Units 13:35 13:38 13:40 WBC 11.4 H (4.0-11.0) 10^3/uL RBC 4.12 L (4.70-6.10) 10^6/uL Hgb 11.9 L (14.0-18.0) g/dL Hct 37.6 L (42.0-54.0) % MCV 91.3 (80.0-94.0) fL MCH 28.9 (25.9-34.0) pg MCHC 31.6 (29.9-35.2) g/dL RDW 15.8 H (11.0-15.0) % Plt Count 407 (150-450) 10^3/uL MPV 9.3 L (9.5-13.5) fL Seg Neuts % (Manual) 62.0 Band Neutrophils % 2.0 (0-5) % Lymphocytes % (Manual) 26.0 (20.5-60.0) % Monocytes % (Manual) 8.0 (1.7-12.0) % Eosinophils % (Manual) 1.0 (0.9-7.0) % Basophils % (Manual) 0.0 L (0.2-2.0) % Metamyelocytes % 1.0 Neutrophils # (Manual) 7.06 H (1.4-6.5) 10^3/uL Band Neutrophils # 0.2 (0.0-0.3) 10^3/uL Lymphocytes # (Manual) 2.96 (1.20-3.80) 10^3/uL Monocytes # (Manual) 0.91 H (0.30-0.80) 10^3/uL Eosinophils # (Manual) 0.11 (0.00-0.70) 10^3/uL Basophils # (Manual) 0.00 (0.00-0.10) 10^3/uL Metamyelocytes # 0.11 Poikilocytosis 1+ Tear Drop Cells 1+ Ovalocytes 1+ PT 9.6 (9.0-11.6) sec INR <0.93 VBG pH 7.315 L (7.330-7.430) VBG pCO2 59.4 H (40.0-52.0) mmHg Sodium 135 L (136-145) mmol/L Potassium 5.5 H (3.5-5.1) mmol/L Chloride 100 (98-107) mmol/L Carbon Dioxide 29.5 (21.0-32.0) mmol/L Anion Gap 11.0 BUN 50.0 H (7.0-18.0) mg/dL Creatinine 1.28 (0.70-1.30) mg/dL Est GFR ( Amer) >60 (>=60) Est GFR (Non-Af Amer) 57 L (>=60) BUN/Creatinine Ratio 39.1 Glucose 113 H (74-106) mg/dL Lactate 1.7 (0.4-2.0) mmol/L Calcium 9.9 (8.5-10.1) mg/dL Magnesium 2.5 H (1.8-2.4) mg/dL Total Bilirubin 0.3 (0.2-1.0) mg/dL AST 21 (15-37) U/L ALT 16 (16-63) U/L Alkaline Phosphatase 94 (46-116) U/L Troponin I High Sens 14.1 (4.0-76.1) pg/mL NT-Pro-B Natriuret Pep 436.0 (<=900.0) pg/mL Total Protein 7.6 (6.4-8.2) g/dL Albumin 2.8 L (3.4-5.0) g/dL Globulin 4.8 g/dL Albumin/Globulin Ratio 0.6 Procalcitonin 0.10 (0.00-0.50) ng/mL Adenovirus (PCR) Not detected (NOT DETECTE) C. pneumoniae DNA (PCR) Not detected (NOT DETECTE) Coronavirus Type OC43 Not detected (NOT DETECTE) Coronavirus Type HKU1 Not detected (NOT DETECTE) Coronavirus Type 229E Not detected (NOT DETECTE) Coronavirus Type NL63 Not detected (NOT DETECTE) Human Metapneumovir PCR Not detected (NOT DETECTE) M. pneumoniae (PCR) Not detected (NOT DETECTE) Parainfluenza PCR Not detected (NOT DETECTE) Parainfluenza 2 (PCR) Not detected (NOT DETECTE) Parainfluenza 3 (PCR) Not detected (NOT DETECTE) Parainfluenza 4 (PCR) Not detected (NOT DETECTE) RSV (RT-PCR) Not detected (NOT DETECTE) Entero/Rhino (PCR) Not detected (NOT DETECTE) SARS-CoV-2 (PCR) Not detected (NOT DETECTE) Bordetella pertussis (PCR) Not detected (NOT DETECTE) B parapertussis DNA PCR Not detected (NOT DETECTE) Influenza Type A (PCR) Not detected (NOT DETECTE) Influenza Type B (PCR) Not detected (NOT DETECTE) Imaging Data CT scan - chest: Attestation: I have reviewed the pertinent imaging results. Radiologist's impression: ITS Impressions Chest CTA 10/14/23 13:30 IMPRESSION: 1. No pulmonary embolism. 2. Bilateral bronchial wall thickening suggestive of bronchiolitis. 3. Moderate emphysematous changes bilaterally with chronic large right apical cavitary lesion which contains new internal soft tissue component; retained secretions versus mass. Follow-up CT chest in 1 month is recommended to document clearing versus stability. 4. Chronic T7 and T8 vertebral body mild compression fractures. Electronically authenticated by: KEITH SU Date: 10/14/2023 15:29 ECG Data Attestation: I personally reviewed and interpreted this ECG as follows: (Sinus tachycardia at a rate of 121, no acute ST elevation or ectopy. EKG reviewed by attending physician) Discharge Plan Discharge Chief Complaint: Shortness of Breath/Dyspnea Patient Disposition: Admitted As Inpatient Time of Disposition Decision: 15:36
[2023-10-14] MEDS: HYDROMORPHONE HCL 0.5 MG/0.5 ML SYRINGE IV (13:45)
[2023-10-14] MEDS: ONDANSETRON PF 4 MG/2 ML VIAL IV (13:45)
[2023-10-14 13:46] LABS: Hematocrit 37.6 % (42.0-54.0); Hemoglobin 11.9 g/dL (14.0-18.0); Mean Corpuscular HGB Conc 31.6 g/dL (29.9-35.2); Mean Corpuscular Hemoglobin 28.9 pg (25.9-34.0); Mean Corpuscular Volume 91.3 fL (80.0-94.0); Mean Platelet Volume 9.3 fL (9.5-13.5); Platelet Count 407 10^3/uL (150-450); Red Blood Count 4.12 10^6/uL (4.70-6.10); Red Cell Distribution Width 15.8 % (11.0-15.0); White Blood Count 11.4 10^3/uL (4.0-11.0)
[2023-10-14 13:47] LABS: pH VBG 7.315 (7.330-7.430)
[2023-10-14 13:48] LABS: PCO2 VBG 59.4 mmHg (40.0-52.0)
[2023-10-14 14:05] LABS: Lactate/Lactic Acid 1.7 mmol/L (0.4-2.0)
[2023-10-14 14:07] LABS: Adenovirus NOT DETECTED (NOT DETECTE); Bordetella parapertussis NOT DETECTED (NOT DETECTE); Coronavirus 229E NOT DETECTED (NOT DETECTE); Coronavirus HKU1 NOT DETECTED (NOT DETECTE); Coronavirus NL63 NOT DETECTED (NOT DETECTE); Coronavirus OC43 NOT DETECTED (NOT DETECTE); Human Metapneumovirus NOT DETECTED (NOT DETECTE); Human Rhinovirus/Enterovirus NOT DETECTED (NOT DETECTE); Influenza A NOT DETECTED (NOT DETECTE); Influenza B NOT DETECTED (NOT DETECTE); Mycoplasma pneumoniae NOT DETECTED (NOT DETECTE); Parainfluenza Virus 1 NOT DETECTED (NOT DETECTE); Parainfluenza Virus 2 NOT DETECTED (NOT DETECTE); Parainfluenza Virus 3 NOT DETECTED (NOT DETECTE); Parainfluenza Virus 4 NOT DETECTED (NOT DETECTE); Respiratory Syncytial Virus NOT DETECTED (NOT DETECTE); SARS-CoV-2 NOT DETECTED (NOT DETECTE)
[2023-10-14 14:07] LABS: Prothrombin Time 9.6 sec (9.0-11.6)
[2023-10-14 14:08] LABS: INR <0.93
[2023-10-14 14:14] LABS: Alanine Aminotransferase 16 U/L (16-63); Albumin Globulin Ratio 0.6; Albumin Level 2.8 g/dL (3.4-5.0); Alkaline Phosphatase 94 U/L (46-116); Aspartate Amino Transferase 21 U/L (15-37); BUN Creatinine Ratio 39.1; Bilirubin Total 0.3 mg/dL (0.2-1.0); Calcium 9.9 mg/dL (8.5-10.1); Carbon Dioxide 29.5 mmol/L (21.0-32.0); Chloride 100 mmol/L (98-107); Estimated GFR (African America >60 (>=60); Estimated GFR (Non-African Ame 57 (>=60); Globulin 4.8 g/dL; Glucose 113 mg/dL (74-106); Magnesium 2.5 mg/dL (1.8-2.4); Potassium 5.5 mmol/L (3.5-5.1); Sodium 135 mmol/L (136-145); Total Protein 7.6 g/dL (6.4-8.2); Troponin I High Sensitivity 14.1 pg/mL (4.0-76.1)
[2023-10-14] MEDS: LORAZEPAM 2 MG/ML 1 ML VIAL 0.5 MG IV (14:42)
[2023-10-14 14:45] LABS: Band Neutrophils Absolute 0.2 10^3/uL (0.0-0.3); Segmented Neut Absolute Manual 7.06 10^3/uL (1.4-6.5)
[2023-10-14 14:46] LABS: Eosinophils Absolute Manual 0.11 10^3/uL (0.00-0.70); Lymphocytes Absolute Manual 2.96 10^3/uL (1.20-3.80); Metamyelocytes Absolute Manual 0.11; Monocytes Absolute Manual 0.91 10^3/uL (0.30-0.80)
[2023-10-14 14:48] LABS: Ovalocytes 1+; Poikilocytosis 1+; Tear Drop Cells 1+
[2023-10-14] MEDS: PIPERACILLIN SODIUM/TAZOBACTAM 4.5 GM in 0.9 % SODIUM CHLORIDE 50 ML IV (16:06)
[2023-10-14] MEDS: LEVOFLOXACIN IN DEXTROSE 5 % 750 MG/150 ML IV.SOLN 100 MG IV (16:28)
[2023-10-14] MEDS: 0.9 % SODIUM CHLORIDE 1,000 ML 1000 ML IV ×2 (17:30→18:27)
[2023-10-14 17:51] LABS: ABG PCO2 36.8 mmHg (35.0-45.0); HCO3 ABG 23.5 mmol/L (22.0-26.0); PO2 ABG 95.8 mmHg (80.0-100.0); pH ABG 7.414 (7.350-7.450)
[2023-10-14 17:52] LABS: Allen Test POSITIVE (POSITIVE); Base Excess ABG -1.1 mmol/L (-2.0-2.0); Oxygen Saturation ABG 98.3 %
[2023-10-14 17:53] LABS: Fractionated Inspired Oxygen 30 %; Liters per Minute 30; O2 Mode VAPOTHERM; Puncture Site R RADIAL
[2023-10-14] MEDS: PANTOPRAZOLE SODIUM 40 MG VIAL IV (18:07)
[2023-10-14] MEDS: METHYLPREDNISOLONE SOD SUCC PF 125 MG/2 ML VIAL IVP (18:08)
--- NOTE | 2023-10-14 18:08 | P.HP_ITS ---
HPI H&P: HPI History of Present Illness Chief complaint: SOB Respirtory Distress Hypoxia COPD Narrative: Patient presented to the emergency room with increasing shortness of breath. Discussed with sister and he had some hypotension the previous day. But then improved, but then today was worse with his breathing. In ER found to have possible bilateral pneumonia. CTA negative for pulmonary embolism. When I saw patient up in the ICU, patient very lethargic, essentially unresponsive. Breathing on his own though. Moves extremities. Appears to be having some chills. Opioid HPI Opioid Management Most Recent Opioid Data: Last Pain Intensity 0 06/25/23 12:30 Last Pain Assessment 06/26/23 06:00 Last ORT Total Score 13 10/14/23 16:45 Last ORT Risk Category High Risk 10/14/23 16:45 Review of Systems ROS Status of ROS 10 or more systems reviewed and unremark able except as noted in history and below [facility] Medical History (Updated 10/14/23 @ 15:37 by ALMA Ram) HCAP (healthcare-associated pneumonia) ?J18.9 - Pneumonia, unspecified organism (ICD-10) Coronary artery disease ?I25.10 - Atherosclerotic heart disease of [place] coronary artery without angina pectoris (ICD-10) Alcohol abuse ?F10.10 - Alcohol abuse, uncomplicated (ICD-10) Atrial fibrillation ?I48.91 - Unspecified atrial fibrillation (ICD-10) Hyperlipidemia ?E78.5 - Hyperlipidemia, unspecified (ICD-10) COPD (chronic obstructive pulmonary disease) ?J44.9 - Chronic obstructive pulmonary disease, unspecified (ICD-10) Pulmonary nodule ?R91.1 - Solitary pulmonary nodule (ICD-10) Anemia ?D64.9 - Anemia, unspecified (ICD-10) Neuropathy ?G62.9 - Polyneuropathy, unspecified (ICD-10) Pancreatitis, chronic ?K86.1 - Other chronic pancreatitis (ICD-10) Osteoarthritis ?M19.90 - Unspecified osteoarthritis, unspecified site (ICD-10) Peripheral vascular disease ?I73.9 - Peripheral vascular disease, unspecified (ICD-10) Hypertension ?I10 - Essential (primary) hypertension (ICD-10) Surgical History (Updated 06/24/23 @ 13:48 by Katalina Chacko RN) Status post insertion of iliac artery stent ?Z95.828 - Presence of other vascular implants and grafts (ICD-10) H/O endarterectomy ?Z98.890 - Other specified postprocedural states (ICD-10) Family History (Updated 06/24/23 @ 13:06 by Katalina Chacko RN) Father Family history of CHF (congestive heart failure) Mother Family history of COPD (chronic obstructive pulmonary disease) Family history of diabetes mellitus Social History Within the past year, how often did you have a drink containing alcohol: monthly or less Smoking status: Current every day smoker Non-prescribed substance use: cannabis (any form) Highest level of school completed/degree received: 12th grade, no diploma Meds Home Medications and Allergies Home Medications ?Medication ?Instructions ?Recorded ?Confirmed ?Type albuterol sulfate 2.5 mg/3 mL 2.5 mg inhalation Q4H PRN 06/24/23 10/14/23 His tory (0.083 %) solution for nebulization shortness of breath or wheezing cholecalciferol (vitamin D3) 50 2,000 unit PO DAILY 06/24/23 10/14/23 History mcg (2,000 unit) capsule fluticasone fur. 200 mcg-umeclid 1 inh inhalation DAILY 06/24/23 10/14/23 History 62.5 mcg-vilant 25 mcg inhalat.powder (Trelegy Ellipta) oxycodone 10 mg tablet 10 mg PO Q4H PRN pain 06/24/23 10/14/23 History prednisone 10 mg tablet 20 mg PO DAILY 06/24/23 10/14/23 History valsartan 80 mg tablet (Diovan) 80 mg PO DAILY 06/24/23 10/14/23 History alprazolam 0.25 mg tablet 0.25 mg PO TID 10/14/23 10/14/23 History aspirin 81 mg chewable tablet 1 tab PO DAILY 10/14/23 10/14/23 History rosuvastatin 40 mg tablet 40 mg PO DAILY 10/14/23 10/14/23 History Allergies Allergy/AdvReac Type Severity Reaction Status Date / Time erythromycin base Allergy Severe Verified 03/04/23 16:21 Exam Constitutional Vital Signs, click to edit/add: Last Vital Signs Temp 97.7 F 10/14/23 16:45 Pulse 110 H 10/14/23 16:45 Resp 20 10/14/23 16:45 BP 122/84 10/14/23 16:45 Pulse Ox 97 10/14/23 16:45 O2 Del Method Vapotherm 10/14/23 16:45 O2 Flow Rate 30 10/14/23 16:45 FiO2 30 10/14/23 16:45 Documenting provider has reviewed patient's vital signs: yes Common normals: apparent distress Exam limitations: altered mental status Nutritional appearance: cachectic Orientation/consciousness: Yes lethargic Chest Common normals: inspection of chest normal Respiratory Common normals: no retractions; abnormal respiratory effort and not clear to ascultation bilaterally Effort & inspection: tachypneic Auscultation: rhonchi, wheezes and diminished lung sounds Results Labs Labs: Short CBC 10/14/23 Range/Units 13:35 WBC 11.4 H (4.0-11.0) 10^3/uL Hgb 11.9 L (14.0-18.0) g/dL Hct 37.6 L (42.0-54.0) % Plt Count 407 (150-450) 10^3/uL BMP 10/14/23 13:35 Sodium 135 L Potassium 5.5 H Chloride 100 Carbon Dioxide 29.5 BUN 50.0 H Creatinine 1.28 Glucose 113 H Calcium 9.9 Liver Function 10/14/23 Range/Units 13:35 Total Bilirubin 0.3 (0.2-1.0) mg/dL AST 21 (15-37) U/L ALT 16 (16-63) U/L Alkaline Phosphatase 94 (46-116) U/L Albumin 2.8 L (3.4-5.0) g/dL ABG ABG results: 10/14/23 10/14/23 13:35 17:45 ABG pH 7.414 ABG pCO2 36.8 ABG pO2 95.8 ABG HCO3 23.5 ABG O2 Saturation 98.3 ABG Base Excess -1.1 VBG pH 7.315 L VBG pCO2 59.4 H Assessment and Plan Assessment and Plan (1) COPD exacerbation: Plan Sinus tachycardia, respiratory distress, hypotension, leukocytosis, acute kidney injury - (baseline creatinine of 2.75-0.8. Current creatinine 1.28. So 160% above baseline) -secondary to acute bilateral pneumonia, acute exacerbation of COPD resulting in sepsis. IV fluid resuscitation, Vapotherm currently for oxygen support. Need to keep O2 saturations 80 to 92%. History of CO2 retention. IV steroids, antibiotics, try to obtain sputum culture, blood cultures pending. L Iron deficiency anemia-monitor daily Hyponatremia likely secondary to dehydration-fluid resuscitation as outlined above Hyperkalemia likely secondary to the acute kidney injury-IV fluid resuscitation likely will improve. Hypomagnesemia-secondary to dehydration-fluid resuscitation as outlined above will likely improve Hypertension by history-currently hypotensive we will hold off on medications Chronic pain management-will hold off on medications while patient is sedated. CODE STATUS-in the past he stated being DNR-cc-A but nothing documented, so currently full code, Inpatient criteria: Patient with acute onset of significant hypoxia and sepsis secondary to pneumonia secondary to acute exacerbation of COPD. Medically necessary treatment will span more than 2 midnights.
[2023-10-14 19:18] LABS: Lactate/Lactic Acid 1.5 mmol/L (0.4-2.0)
[2023-10-14] MEDS: LACTATED RINGER'S SOLUTION 1,000 ML 100 ML IV (20:39)
[2023-10-14] MEDS: IPRATROPIUM/ALBUTEROL SULFATE 3 ML AMPUL.NEB IH (22:26)
--- NOTE | 2023-10-14 23:35 | RESP.RT ---
Patient had vapotherm off
[2023-10-15] VITALS (71 sets, daily range): BP systolic 120–151; BP diastolic 72–93; PULSE 80–117; RESP 18–29; TEMP 36.6–37; O2SAT 77–100
[2023-10-15] MEDS: METHYLPREDNISOLONE SOD SUCC PF 125 MG/2 ML VIAL IVP ×5 (00:29→23:54)
[2023-10-15] MEDS: PIPERACILLIN SODIUM/TAZOBACTAM 3.375 GM in 0.9 % SODIUM CHLORIDE 50 ML IV ×4 (00:29→23:59)
[2023-10-15] MEDS: IPRATROPIUM/ALBUTEROL SULFATE 3 ML AMPUL.NEB IH ×4 (04:47→23:25)
[2023-10-15 05:02] LABS: Basophils Absolute Auto 0.1 10^3/uL (0.0-0.1); Basophils Percent Auto 0.6 % (0.2-2.0); Hematocrit 34.7 % (42.0-54.0); Hemoglobin 10.9 g/dL (14.0-18.0); Immature Granulocytes Abs Auto 0.55 10^3/uL (0.00-0.03); Immature Granulocytes Pct Auto 5.7 % (0.0-0.5); Lymphocytes Absolute Auto 0.7 10^3/uL (1.2-3.8); Lymphocytes Percent Auto 7.1 % (20.5-60.0); Mean Corpuscular HGB Conc 31.4 g/dL (29.9-35.2); Mean Corpuscular Hemoglobin 28.2 pg (25.9-34.0); Mean Corpuscular Volume 89.7 fL (80.0-94.0); Mean Platelet Volume 9.2 fL (9.5-13.5); Monocytes Absolute Auto 0.1 10^3/uL (0.3-0.8); Neutrophils Absolute Auto 8.3 10^3/uL (1.4-6.5); Neutrophils Percent Auto 85.6 % (43.0-75.0); Platelet Count 297 10^3/uL (150-450); Red Blood Count 3.87 10^6/uL (4.70-6.10); Red Cell Distribution Width 15.6 % (11.0-15.0); White Blood Count 9.7 10^3/uL (4.0-11.0)
[2023-10-15 05:14] LABS: Alanine Aminotransferase 11 U/L (16-63); Albumin Globulin Ratio 0.5; Albumin Level 2.2 g/dL (3.4-5.0); Alkaline Phosphatase 73 U/L (46-116); Anion Gap 13.2; Aspartate Amino Transferase 10 U/L (15-37); BUN Creatinine Ratio 33.3; Bilirubin Total 0.3 mg/dL (0.2-1.0); Calcium 8.7 mg/dL (8.5-10.1); Carbon Dioxide 24.7 mmol/L (21.0-32.0); Chloride 104 mmol/L (98-107); Estimated GFR (African America >60 (>=60); Estimated GFR (Non-African Ame 59 (>=60); Globulin 4.1 g/dL; Glucose 136 mg/dL (74-106); Potassium 5.9 mmol/L (3.5-5.1); Sodium 136 mmol/L (136-145); Total Protein 6.3 g/dL (6.4-8.2)
[2023-10-15 07:36] LABS: PCO2 VBG 43.9 mmHg (40.0-52.0); pH VBG 7.335 (7.330-7.430)
--- NOTE | 2023-10-15 07:50 | P.PN_ITS ---
Exam Constitutional Vital Signs, click to edit/add: Last Vital Signs Temp 97.9 F 10/15/23 07:36 Pulse 101 H 10/15/23 07:36 Resp 18 10/15/23 07:36 BP 120/84 10/15/23 07:36 Pulse Ox 97 10/15/23 07:36 O2 Del Method Nasal Cannula 10/15/23 07:36 O2 Flow Rate 2 10/15/23 07:36 FiO2 30 10/14/23 19:46 Progress Note: Objective Labs Labs: Short CBC 10/14/23 10/15/23 Range/Units 13:35 04:33 WBC 11.4 H 9.7 (4.0-11.0) 10^3/uL Hgb 11.9 L 10.9 L (14.0-18.0) g/dL Hct 37.6 L 34.7 L (42.0-54.0) % Plt Count 407 297 (150-450) 10^3/uL BMP 10/14/23 10/15/23 13:35 04:33 Sodium 135 L 136 Potassium 5.5 H 5.9 H Chloride 100 104 Carbon Dioxide 29.5 24.7 BUN 50.0 H 41.0 H Creatinine 1.28 1.23 Glucose 113 H 136 H Calcium 9.9 8.7 Liver Function 10/14/23 10/15/23 Range/Units 13:35 04:33 Total Bilirubin 0.3 0.3 (0.2-1.0) mg/dL AST 21 10 L (15-37) U/L ALT 16 11 L (16-63) U/L Alkaline Phosphatase 94 73 (46-116) U/L Albumin 2.8 L 2.2 L (3.4-5.0) g/dL Progress Note: A&P Assessment and Plan (1) COPD exacerbation: Plan On admission with: Sinus tachycardia, respiratory distress, hypotension, l eukocytosis, acute kidney injury - (baseline creatinine of 2.75-0.8. Current creatinine 1.28. So 160% above baseline) -secondary to acute bilateral pneumonia, acute exacerbation of COPD resulting in sepsis. Able to be weaned down from Vapotherm to his normal nasal cannula O2. O2 saturations are much improved. Blood pressure stabilized. Creatinine still somewhat elevated to maintain current fluid resuscitation Iron deficiency anemia-monitor daily Hyponatremia likely secondary to dehydration-fluid resuscitation as outlined above Hyperkalemia likely secondary to the acute kidney injury-fluid resuscitation did not improve as anticipated, will give 2 doses of Kayexalate Hypermagnesemia-secondary to dehydration-fluid resuscitation as outlined above will likely improve Hypertension by history-currently hypotensive we will hold off on medications Chronic pain management-will hold off on medications while patient is sedated. CODE STATUS-in the past he stated being DNR-cc-A but nothing documented, discussed with patient and he would prefer to be full code Inpatient criteria: Patient with acute onset of significant hypoxia and sepsis secondary to pneumonia secondary to acute exacerbation of COPD. Medically necessary treatment will span more than 2 midnights.
--- NOTE | 2023-10-15 08:01 | P.PN_ITS ---
Progress Note: Subjective Subjective Interval history: Patient much more alert today. Exam Constitutional Vital Signs, click to edit/add: Last Vital Signs Temp 97.9 F 10/15/23 07:36 Pulse 101 H 10/15/23 07:36 Resp 18 10/15/23 07:36 BP 120/84 10/15/23 07:36 Pulse Ox 97 10/15/23 07:36 O2 Del Method Nasal Cannula 10/15/23 07:36 O2 Flow Rate 2 10/15/23 07:36 FiO2 30 10/14/23 19:46 Documenting provider has reviewed patient's vital signs: yes Common normals: apparent distress Exam limitations: no altered mental status Nutritional appearance: cachectic Orientation/consciousness: Yes lethargic Chest Common normals: inspection of chest normal Respiratory Common normals: no retractions; abnormal respiratory effort and not clear to ascultation bilaterally Effort & inspection: non tachypneic Auscultation: rhonchi, wheezes and diminished lung sounds Progress Note: Objective Labs Labs: Short CBC 10/14/23 10/15/23 Range/Units 13:35 04:33 WBC 11.4 H 9.7 (4.0-11.0) 10^3/uL Hgb 11.9 L 10.9 L (14.0-18.0) g/dL Hct 37.6 L 34.7 L (42.0-54.0) % Plt Count 407 297 (150-450) 10^3/uL BMP 10/14/23 10/15/23 13:35 04:33 Sodium 135 L 136 Potassium 5.5 H 5.9 H Chloride 100 104 Carbon Dioxide 29.5 24.7 BUN 50.0 H 41.0 H Creatinine 1.28 1.23 Glucose 113 H 136 H Calcium 9.9 8.7 Liver Function 10/14/23 10/15/23 Range/Units 13:35 04:33 Total Bilirubin 0.3 0.3 (0.2-1.0) mg/dL AST 21 10 L (15-37) U/L ALT 16 11 L (16-63) U/L Alkaline Phosphatase 94 73 (46-116) U/L Albumin 2.8 L 2.2 L (3.4-5.0) g/dL Progress Note: A&P Assessment and Plan (1) COPD exacerbation: Plan On admission with: Sinus tachycardia, respiratory distress, hypotension, leukocytosis, acute kidney injury - (baseline creatinine of 2.75-0.8. Current creatinine 1.28. So 160% above baseline) -secondary to acute bilateral pneumonia, acute exacerbation of COPD resulting in sepsis. Able to be weaned down from Vapotherm to his normal nasal cannula O2. O2 saturations are much improved. Blood pressure stabilized. Creatinine still somewhat elevated to maintain current fluid resuscitation Iron deficiency anemia-monitor daily Hyponatremia likely secondary to dehydration-fluid resuscitation as outlined above Hyperkalemia likely secondary to the acute kidney injury-fluid resuscitation did not improve as anticipated, will give 2 doses of Kayexalate Hypermagnesemia-secondary to dehydration-fluid resuscitation as outlined above will likely improve Hypertension by history-currently hypotensive we will hold off on medications Chronic pain management-will hold off on medications while patient is sedated. CODE STATUS-in the past he stated being DNR-cc-A but nothing documented, discussed with patient and he would prefer to be full code Inpatient criteria: Patient with acute onset of significant hypoxia and sepsis secondary to pneumonia secondary to acute exacerbation of COPD. Medically necessary treatment will span more than 2 midnights. ?
[2023-10-15] MEDS: LACTATED RINGER'S SOLUTION 1,000 ML 100 ML IV ×2 (08:20→18:36)
[2023-10-15] MEDS: BUDESONIDE 0.5 MG/2 ML AMPULE NEB IH ×2 (11:05→23:25)
[2023-10-15] MEDS: ACETAMINOPHEN 500 MG TABLET 1000 MG PO ×2 (11:07→23:43)
[2023-10-15] MEDS: ASPIRIN 81 MG TAB.CHEW PO (11:08)
[2023-10-15] MEDS: PROSTAT 15 GM PROTEIN/100 CAL 30 ML LIQUID PACKET PO (11:08)
--- NOTE | 2023-10-15 12:30 | SWNOTE1 ---
SW stopped in to room to speak to pt. Pt's , Jo was in room. Jo and pt do not live together, pt lives with his mother. They do still get along well. Pt was sleeping and Jo was able to answer questions, she is listed on his emergency contacts. She voiced pt has not been doing very well the last few weeks. She voiced he does not get out of bed. She stated a few days ago she tried to bring the kids and grandkids over to see him, but he didn't want them to. Pt does have [facility] coming in. He does have home oxygen, unsure of liter flow, but it is thru medical service [employer]. SW to find out liter flow. Unsure of dc needs at this time. SW to speak with pt when he wakes up. SW did call [facility] and pt only has skilled nurse coming in at this time.
--- NOTE | 2023-10-15 15:35 | SWNOTE1 ---
SW attempted to go see pt again. Jo, pt's ex was in room still. Pt was wanting to be re-positioned at this time. SW to attempt to see pt later.
[2023-10-15] MEDS: SODIUM POLYSTYRENE SULFON/SORB 15 GM/60 ML ORAL.SUSP 30 GM PO (18:36)
[2023-10-15] MEDS: PANTOPRAZOLE SODIUM 40 MG VIAL IV (18:36)
[2023-10-15] MEDS: ALPRAZOLAM 0.25 MG TABLET PO (23:44)
[2023-10-16] VITALS (56 sets, daily range): BP systolic 149–170; BP diastolic 76–97; PULSE 97–124; TEMP 36.7–37.4; O2SAT 95–99
[2023-10-16] MEDS: IPRATROPIUM/ALBUTEROL SULFATE 3 ML AMPUL.NEB IH ×4 (04:18→23:21)
[2023-10-16] MEDS: LACTATED RINGER'S SOLUTION 1,000 ML 100 ML IV ×2 (04:49→14:36)
[2023-10-16 05:17] LABS: Basophils Percent Auto 0.1 % (0.2-2.0); Hematocrit 28.3 % (42.0-54.0); Hemoglobin 9.2 g/dL (14.0-18.0); Immature Granulocytes Abs Auto 0.29 10^3/uL (0.00-0.03); Immature Granulocytes Pct Auto 3.7 % (0.0-0.5); Lymphocytes Absolute Auto 0.9 10^3/uL (1.2-3.8); Lymphocytes Percent Auto 10.9 % (20.5-60.0); Mean Corpuscular HGB Conc 32.5 g/dL (29.9-35.2); Mean Corpuscular Hemoglobin 28.5 pg (25.9-34.0); Mean Corpuscular Volume 87.6 fL (80.0-94.0); Mean Platelet Volume 9.4 fL (9.5-13.5); Monocytes Absolute Auto 0.4 10^3/uL (0.3-0.8); Monocytes Percent Auto 4.9 % (1.7-12.0); Neutrophils Absolute Auto 6.3 10^3/uL (1.4-6.5); Neutrophils Percent Auto 80.4 % (43.0-75.0); Platelet Count 256 10^3/uL (150-450); Red Blood Count 3.23 10^6/uL (4.70-6.10); Red Cell Distribution Width 15.6 % (11.0-15.0); White Blood Count 7.8 10^3/uL (4.0-11.0)
[2023-10-16 05:29] LABS: Alanine Aminotransferase 10 U/L (16-63); Albumin Globulin Ratio 0.6; Albumin Level 2.1 g/dL (3.4-5.0); Alkaline Phosphatase 60 U/L (46-116); Anion Gap 14.2; Aspartate Amino Transferase 10 U/L (15-37); Bilirubin Total 0.3 mg/dL (0.2-1.0); Calcium 8.6 mg/dL (8.5-10.1); Carbon Dioxide 25.5 mmol/L (21.0-32.0); Chloride 108 mmol/L (98-107); Estimated GFR (African America >60 (>=60); Estimated GFR (Non-African Ame 51 (>=60); Globulin 3.5 g/dL; Glucose 142 mg/dL (74-106); Potassium 3.7 mmol/L (3.5-5.1); Sodium 144 mmol/L (136-145); Total Protein 5.6 g/dL (6.4-8.2)
[2023-10-16] MEDS: METHYLPREDNISOLONE SOD SUCC PF 125 MG/2 ML VIAL IVP (06:15)
--- NOTE | 2023-10-16 08:16 | P.PN_ITS ---
Progress Note: Subjective Subjective Interval history: Patient much more alert today. Exam Constitutional Vital Signs, click to edit/add: Last Vital Signs Temp 98.1 F 10/16/23 08:00 Pulse 117 H 10/16/23 08:00 Resp 24 H 10/16/23 04:29 BP 149/76 H 10/16/23 07:35 Pulse Ox 96 10/16/23 08:00 O2 Del Method Nasal Cannula 10/16/23 08:00 O2 Flow Rate 2 10/16/23 08:00 FiO2 30 10/14/23 19:46 Documenting provider has reviewed patient's vital signs: yes Common normals: apparent distress Exam limitations: no altered mental status Nutritional appearance: cachectic Orientation/consciousness: Yes lethargic Chest Common normals: inspection of chest normal Respiratory Common normals: no retractions; abnormal respiratory effort and not clear to ascultation bilaterally Effort & inspection: non tachypneic Auscultation: rhonchi (Much better air exchange), wheezes and diminished lung sounds Progress Note: Objective Labs Labs: Short CBC 10/16/23 Range/Units 04:51 WBC 7.8 (4.0-11.0) 10^3/uL Hgb 9.2 L (14.0-18.0) g/dL Hct 28.3 L (42.0-54.0) % Plt Count 256 (150-450) 10^3/uL BMP 10/16/23 04:51 Sodium 144 Potassium 3.7 Chloride 108 H Carbon Dioxide 25.5 BUN 42.0 H Creatinine 1.40 H Glucose 142 H Calcium 8.6 Liver Function 10/16/23 Range/Units 04:51 Total Bilirubin 0.3 (0.2-1.0) mg/dL AST 10 L (15-37) U/L ALT 10 L (16-63) U/L Alkaline Phosphatase 60 (46-116) U/L Albumin 2.1 L (3.4-5.0) g/dL Progress Note: A&P Assessment and Plan (1) COPD exacerbation: Plan On admission with: Sinus tachycardia, respiratory distress, hypotension, leukocytosis, acute kidney injury - (baseline creatinine of 2.75-0.8. Current creatinine 1.28. So 160% above baseline) -secondary to acute bilateral pneumonia, acute exacerbation of COPD resulting in sepsis. Doing much better today, continue with current treatment plan, okay to transfer to [facility], possible discharge tomorrow Iron deficiency anemia-monitor daily Hyponatremia likely secondary to dehydration-fluid resuscitation as outlined above Hyperkalemia likely secondary to the acute kidney injury-fluid resuscitation did not improve as anticipated, will give 2 doses of Kayexalate, Yesterday, much improved Hypermagnesemia-secondary to dehydration-fluid resuscitation as outlined above will likely improve Hypertension by history-currently hypotensive we will hold off on medications Chronic pain management-will hold off on medications while patient is sedated. CODE STATUS-in the past he stated being DNR-cc-A but nothing documented, discussed with patient and he would prefer to be full code Inpatient criteria: Patient with acute onset of significant hypoxia and sepsis secondary to pneumonia secondary to acute exacerbation of COPD. Medically necessary treatment will span more than 2 midnights. ?
[2023-10-16] MEDS: PIPERACILLIN SODIUM/TAZOBACTAM 3.375 GM in 0.9 % SODIUM CHLORIDE 50 ML IV ×2 (08:31→15:56)
[2023-10-16] MEDS: PROSTAT 15 GM PROTEIN/100 CAL 30 ML LIQUID PACKET PO (08:37)
[2023-10-16] MEDS: CLONIDINE HCL 0.1 MG TABLET 0.100000000000000006 MG PO ×2 (08:37→20:31)
[2023-10-16] MEDS: ASPIRIN 81 MG TAB.CHEW PO (08:37)
--- NOTE | 2023-10-16 09:15 | SWNOTE1 ---
SW stopped in to speak with pt. Pt was awake eating breakfast. Pt voiced he is feeling better today. SW asked pt about his discharge plans. He wants to go home with home health and he wants physical therapy added back on to his home health. SW assured him SW will add back on. SW did ask pt about going to nursing facility for rehab for a short time. Pt voiced very strongly he is not going to a nursing facility for rehab. At this time pt refuses SNF. Pt does wear 3 liters of oxygen at home. At discharge pt will resume his [facility] and will add PT back on. Pt voices no other needs at this time.
[2023-10-16] MEDS: BUDESONIDE 0.5 MG/2 ML AMPULE NEB IH ×2 (10:20→23:21)
[2023-10-16] MEDS: METHYLPREDNISOLONE SOD SUCC PF 125 MG/2 ML VIAL 60 MG IVP ×2 (12:47→18:07)
[2023-10-16] MEDS: ALPRAZOLAM 0.25 MG TABLET PO ×2 (13:30→22:13)
--- NOTE | 2023-10-16 13:34 | PT.DAILY ---
Physical Therapy Daily Note PT Daily Note/Assess Start: 10/15/23 08:45 Freq: Status: Active Protocol: Document 10/16/23 13:31 MARK (Rec: 10/16/23 13:34 MARK [id number]) Physical Therapy Daily Note/Assessment Time In/Time Out Time In 13:00 Time Out 13:15 Pain In Pain N/A Pain Out Pain N/A Subjective Subjective Pt supine upon arrival. Agrees to PT. Denies pain just really cold. Therapeutic Exercise Time Therapeutic Exercise Minutes (minutes) 3 Therapeutic Exercise Units 0 Therapeutic Exercise Treatment Therapeutic Exercise Treatment Seated EOB to complete AP, LAQ , marches and add squeezes 10x ea without LOB. Therapeutic Activity Time Therapeutic Activity Minutes (minutes) 8 Therapeutic Activity Units 1 Therapeutic Activity Treatment Bed Mobility Ability Standby Assistance Chair Transfer Ability Standby Assistance Therapeutic Activity Comments Supine>sit SBA with increased time. Sits EOB unsupported for 3 min to complete seated ex - no LOB. Sit>stand to RW SBA. Pt amb 2 laps in room 60' total with RW, SBA with assist for IV pole and O2 lines. Pt demonstrates Fair+ dynamic balance with gait. Returned supine SBA. Remains supine with call light in reach and needs met. Total Physical Therapy Time Total Therapy Minutes 11 Total Physical Therapy Units 1 Summary Daily Note Summary Improved transfer and gait ability on this date.
[2023-10-16] MEDS: LEVOFLOXACIN IN DEXTROSE 5 % 750 MG/150 ML IV.SOLN 100 MG IV (14:32)
[2023-10-16] MEDS: OXYCODONE HCL 5 MG TABLET 10 MG PO ×2 (16:11→22:12)
[2023-10-16] MEDS: PANTOPRAZOLE SODIUM 40 MG VIAL IV (18:07)
[2023-10-17] VITALS (20 sets, daily range): BP systolic 159–195; BP diastolic 77–93; PULSE 69–124; TEMP 36.9–37.1; O2SAT 90–98
[2023-10-17] MEDS: PIPERACILLIN SODIUM/TAZOBACTAM 3.375 GM in 0.9 % SODIUM CHLORIDE 50 ML IV ×2 (00:10→08:08)
[2023-10-17] MEDS: METHYLPREDNISOLONE SOD SUCC PF 125 MG/2 ML VIAL 60 MG IVP ×2 (00:10→05:11)
[2023-10-17] MEDS: LACTATED RINGER'S SOLUTION 1,000 ML 100 ML IV (00:11)
[2023-10-17] MEDS: IPRATROPIUM/ALBUTEROL SULFATE 3 ML AMPUL.NEB IH ×2 (05:05→11:16)
[2023-10-17] MEDS: ALPRAZOLAM 0.25 MG TABLET PO (05:11)
[2023-10-17 05:26] LABS: Hemoglobin 8.1 g/dL (14.0-18.0); Mean Corpuscular HGB Conc 31.2 g/dL (29.9-35.2); Mean Corpuscular Hemoglobin 27.6 pg (25.9-34.0); Mean Corpuscular Volume 88.4 fL (80.0-94.0); Mean Platelet Volume 9.2 fL (9.5-13.5); Platelet Count 237 10^3/uL (150-450); Red Blood Count 2.94 10^6/uL (4.70-6.10); Red Cell Distribution Width 15.6 % (11.0-15.0); White Blood Count 7.1 10^3/uL (4.0-11.0)
[2023-10-17 05:50] LABS: Alanine Aminotransferase 10 U/L (16-63); Albumin Globulin Ratio 0.6; Alkaline Phosphatase 50 U/L (46-116); Anion Gap 13.1; Aspartate Amino Transferase 11 U/L (15-37); BUN Creatinine Ratio 34.3; Bilirubin Total 0.2 mg/dL (0.2-1.0); Calcium 8.5 mg/dL (8.5-10.1); Carbon Dioxide 24.6 mmol/L (21.0-32.0); Chloride 109 mmol/L (98-107); Estimated GFR (African America >60 (>=60); Estimated GFR (Non-African Ame >60 (>=60); Globulin 3.1 g/dL; Glucose 121 mg/dL (74-106); Potassium 3.7 mmol/L (3.5-5.1); Sodium 143 mmol/L (136-145); Total Protein 5.1 g/dL (6.4-8.2)
[2023-10-17 06:10] LABS: Band Neutrophils Absolute 0.6 10^3/uL (0.0-0.3); Lymphocytes Absolute Manual 0.35 10^3/uL (1.20-3.80); Metamyelocytes Absolute Manual 0.07; Monocytes Absolute Manual 0.14 10^3/uL (0.30-0.80); Segmented Neut Absolute Manual 5.96 10^3/uL (1.4-6.5)
[2023-10-17 06:11] LABS: Ovalocytes 2+
[2023-10-17] MEDS: PROSTAT 15 GM PROTEIN/100 CAL 30 ML LIQUID PACKET PO (08:08)
[2023-10-17] MEDS: CLONIDINE HCL 0.1 MG TABLET 0.100000000000000006 MG PO ×2 (08:08→10:24)
[2023-10-17] MEDS: ASPIRIN 81 MG TAB.CHEW PO (08:08)
--- NOTE | 2023-10-17 10:43 | PT.DAILY ---
Physical Therapy Daily Note PT Daily Note/Assess Start: 10/15/23 08:45 Freq: Status: Active Protocol: Document 10/17/23 10:34 [id number] (Rec: 10/17/23 10:43 [id number]) Physical Therapy Daily Note/Assessment Time In/Time Out Time In 08:35 Time Out 08:52 Pain In Pain Level 5 Pain Out Pain Level 4 Subjective Subjective Patient received supine in bed , agreeable to participate with PT after encouragement. Patient reports pain is to his chest and he has informed nursing. Therapeutic Exercise Time Therapeutic Exercise Minutes (minutes) 7 Therapeutic Exercise Units 1 Therapeutic Exercise Treatment Therapeutic Exercise Treatment Supine ANNETTA LE ther ex for strengthening: ankle pumps, quad sets and SLR x 7-10 reps each. Seated EOB for LAQ, marching, hip ABD/ADD x 5-10 reps. Therapeutic Activity Time Therapeutic Activity Minutes (minutes) 10 Therapeutic Activity Units 1 Therapeutic Activity Treatment Bed Mobility Ability Standby Assistance Chair Transfer Ability Standby Assistance Therapeutic Activity Comments Bed mobility: SBA +1, patient able to manage blankets without A. Seated EOB with 0 to 1 UE for support and no LOB . Sit to stand to RW CGA +1. Patient ambulated 60 feet for 2 laps in room. VC's to slow pace of gait for safety. Required 1 seated therapeutic rest break in between laps for ~20 seconds secondary to SOB and fatigue. Patient seated in chair at bedside with CBWR. Tray with breakfast placed in front of patient. Nursing in patient's room when placed in chair. Total Physical Therapy Time Total Therapy Minutes 17 Total Physical Therapy Units 2 Summary Daily Note Summary Experienced SOB and fatigue with exertion. Patient demonstrates some impulsiveness during transfers and gait. Does slow pace of movement to safer speed with VC's.
[2023-10-17] MEDS: BUDESONIDE 0.5 MG/2 ML AMPULE NEB IH (11:16)
--- NOTE | 2023-10-17 11:25 | P.DS_ITS ---
DS: Providers Provider Date of admission: 10/14/23 16:38 Primary care physician: Miky Bailey MD Consults: 10/14/23 17:27 Consult to Pharmacy Routine Consulting Provider: Reason for consultation: Please [place] me when Med Rec is Updated Has provider been notified: No Occupational Therapy Eval and Treat Routine Reason for consultation: Only if needed for Rehab Has provider been notified: No Physical Therapy Eval and Treat Routine Reason for consultation: Eval and Treat Has provider been notified: No DS: Diagnosis Discharge Diagnosis (1) COPD exacerbation: Plan On admission with: Sinus tachycardia, respiratory distress, hypotension, leukocytosis, acute kidney injury - (baseline creatinine of 2.75-0.8. Current creatinine 1.28. So 160% above baseline) -secondary to acute bilateral pneumonia, acute exacerbation of COPD resulting in sepsis. Iron deficiency anemia Hyponatremia likely secondary to dehydration Hyperkalemia likely secondary to the acute renal failure Hypermagnesemia Hypertension by history Chronic pain management Inpatient criteria: Patient with acute onset of significant hypoxia and sepsis secondary to pneumonia secondary to acute exacerbation of COPD. Medically necessary treatment will span more than 2 midnights. DS: Summary Hospital Course Hospital Course: Patient admitted with altered mental status. That progressed during the initial part of his hospitalization, increasing shortness of breath and significant hypoxia with bilateral pneumonia resulting in acute exacerbation of COPD with acute kidney injury resulting in sepsis. Patient was treated aggressively with IV antibiotics and aerosols and steroids. He was somewhat improved the following day but still having periods of altered mental status. Second day of hospitalization is starting to improve. His oxygen was weaned back to his baseline. Still significant dyspnea with any activity. Today he is much improved. Ambulating without difficulty compared to his baseline. Oxygen remained at his baseline of 2 L supplemental oxygen at home. At this point he will be discharged home in improving condition. Medications see list. Follow- up with me in the office in 2 days. Time Spent with Patient Time attestation: Total time spent providing and/or coordinating discharge services: Exam Constitutional Vital Signs, click to edit/add: Last Vital Signs Temp 98.8 F 10/17/23 05:15 Pulse 91 H 10/17/23 10:30 Resp 18 10/17/23 05:15 BP 183/93 H 10/17/23 10:24 Pulse Ox 97 10/17/23 07:00 O2 Del Method Nasal Cannula 10/17/23 10:00 O2 Flow Rate 2 10/17/23 10:00 FiO2 30 10/14/23 19:46 Documenting provider has reviewed patient's vital signs: yes Common normals: apparent distress Exam limitations: no altered mental status Nutritional appearance: cachectic Orientation/consciousness: Yes lethargic Chest Common normals: inspection of chest normal Respiratory Common normals: no retractions; abnormal respiratory effort and not clear to ascultation bilaterally Effort & inspection: non tachypneic Auscultation: rhonchi (Much better air exchange), wheezes and diminished lung sounds DS: Data Data Completed and Pending Labs on day of discharge: Labs from last 24 hours 10/17/23 03:54 WBC 7.1 RBC 2.94 L Hgb 8.1 L Hct 26.0 L MCV 88.4 MCH 27.6 MCHC 31.2 RDW 15.6 H Plt Count 237 MPV 9.2 L Seg Neuts % (Manual) 84.0 Band Neutrophils % 8.0 H Lymphocytes % (Manual) 5.0 L Monocytes % (Manual) 2.0 Eosinophils % (Manual) 0.0 L Basophils % (Manual) 0.0 L Metamyelocytes % 1.0 Neutrophils # (Manual) 5.96 Band Neutrophils # 0.6 H Lymphocytes # (Manual) 0.35 L Monocytes # (Manual) 0.14 L Eosinophils # (Manual) 0.00 Basophils # (Manual) 0.00 Metamyelocytes # 0.07 Ovalocytes 2+ Sodium 143 Potassium 3.7 Chloride 109 H Carbon Dioxide 24.6 Anion Gap 13.1 BUN 37.0 H Creatinine 1.08 Est GFR ( Amer) >60 Est GFR (Non-Af Amer) >60 BUN/Creatinine Ratio 34.3 Glucose 121 H Calcium 8.5 Total Bilirubin 0.2 AST 11 L ALT 10 L Alkaline Phosphatase 50 Total Protein 5.1 L Albumin 2.0 L Globulin 3.1 Albumin/Globulin Ratio 0.6 Preliminary micro results at discharge 10/14/23 13:55 - Preliminary Blood NO GROWTH AT 36-48 HOURS. FINAL TO FOLLOW. Discharge Plan Discharge Disposition: Home, Self-Care Condition: Fair Discharge Medications: New clonidine HCl 0.1 mg Tablet 0.2 mg PO BID Qty: 120 11RF prednisone 10 mg tablet 50 mg PO DAILY Qty: 60 11RF Rx Instructions: 5/day for 3 days. 4/day for 3 days, 3/day for 3 days, 2/day for ever levofloxacin 750 mg tablet 750 mg PO DAILY 10 Days Qty: 10 0RF benzonatate 100 mg Capsule 200 mg PO Q8H PRN (Reason: Cough) Qty: 30 0RF Ensure Active Protein-Muscle Liquid 1 ea PO BID Qty: 5688 11RF Continued cholecalciferol (vitamin D3) 50 mcg (2,000 unit) capsule 2,000 unit PO DAILY Trelegy Ellipta 200-62.5-25 mcg blister with device 1 inh inhalation DAILY prednisone 10 mg tablet 20 mg PO DAILY oxycodone 10 mg tablet 10 mg PO Q4H PRN (Reason: pain) albuterol sulfate 2.5 mg /3 mL (0.083 %) solution for nebulization 2.5 mg inhalation Q4H PRN (Reason: shortness of breath or wheezing) alprazolam 0.25 mg tablet 0.25 mg PO TID aspirin 81 mg tablet,chewable 1 tab PO DAILY rosuvastatin 40 mg tablet 40 mg PO DAILY Discontinued valsartan [Diovan] 80 mg tablet 80 mg PO DAILY Activity: increase activity as tolerated Diet: advance to your usual diet Print Language: German Patient Instructions: Clonidine (By mouth), Levofloxacin (By mouth) (Rafael Hall) 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 at discharge. Phone number is [phone] Forms: Portal Instructions Follow Up Appointments: Call Dr Bailey's office for follow up appt in 1 week. Discharge Date/Time: 10/17/23 12:00
--- NOTE | 2023-10-17 11:58 | PC.NURSE ---
dc paperwork faxed to HH. dc instructions reviewed with pt and sister. next dose of meds due written on instructions. both verbalized understanding. both aware of HH resuming. denies questions, taken to exit via wheelchair, medications brought from home sent with pt. discharged to private vehicle.
--- NOTE | 2023-10-19 16:19 | CM.DCFOLLOWU ---
Person spoke with: Michael How are you feeling? Getting stronger everyday How is your pain? No pain Did you understand your discharge instructions? Yes Do you have any questions about your discharge instructions? No Were you given any prescriptions at discharge? Yes Were you able to get your prescriptions filled? Yes Do you understand how to take your medications as ordered? Yes Do you have any questions about your follow up appointment and do you plan to keep your follow up appointment? I'm calling to schedule with Dr. Bailey tomorrow Is there anything else that you would like to discuss? No Questions/Comments/Concerns/Other:
== END 2023-10-17 12:00 | disposition home or self-care (01) | DRG 871 ==
LOC: ER 15:37 → ICU 16:41
PROVIDERS: Physician Assistant; Admitting Provider Family Medicine; Emergency Provider Emergency Medicine Emergency Medical Services; PCP Family Medicine; Visit Provider Family Medicine
DX: A41.9 Sepsis, unspecified organism (principal); J18.9 Pneumonia, unspecified organism; N17.9 Acute kidney failure, unspecified; J44.1 Chronic obstructive pulmonary disease with (acute) exacerbation; J44.0 Chronic obstructive pulmonary disease with (acute) lower respiratory infection; E87.1 Hypo-osmolality and hyponatremia; R64 Cachexia; D50.9 Iron deficiency anemia, unspecified; E86.0 Dehydration; E83.42 Hypomagnesemia; E87.5 Hyperkalemia; E78.5 Hyperlipidemia, unspecified; I10 Essential (primary) hypertension; I25.10 Atherosclerotic heart disease of native coronary artery without angina pectoris; F17.210 Nicotine dependence, cigarettes, uncomplicated; G89.29 Other chronic pain; R00.0 Tachycardia, unspecified; R06.03 Acute respiratory distress; R65.20 Severe sepsis without septic shock; R09.02 Hypoxemia; M19.90 Unspecified osteoarthritis, unspecified site; Z68.20 Body mass index [BMI] 20.0-20.9, adult; Z99.81 Dependence on supplemental oxygen; Z95.828 Presence of other vascular implants and grafts; Z79.02 Long term (current) use of antithrombotics/antiplatelets; Z79.52 Long term (current) use of systemic steroids; Z79.899 Other long term (current) drug therapy; Z88.1 Allergy status to other antibiotic agents
CPT/HCPCS: 0202U; 36415; 36600; 71275; 80053; 82800; 82805; 82948; 83605; 83735; 83880; 84145; 84484; 85007; 85025; 85027; 85610; 87040; 87070; 93005; 94640; 94667; 94668; 94761; 94799; 96361; 96365; 96366; 96367; 96368; 96375; 96376; 97110; 97161; 97165; 97530; 99285; G0328; J1170; J2930; Q9967

== ENCOUNTER 2023-11-09 12:01 | Observation (INO) | payer OTHER, SELFPAY ==
[2023-11-09] VITALS (51 sets, daily range): BP systolic 51–141; BP diastolic 31–82; PULSE 79–126; RESP 14; TEMP 36.3–37; O2SAT 69–100; BMI 17.6; BMI 19.8
--- NOTE | 2023-11-09 12:03 | XR_ITS ---
The [address] [address] Patient Name: KEITH MENDES MRN: [id number] date: 1960 Sex: M Assigned Patient Location: ER Current Patient Location: ER Accession/Order Number: [id number] Exam Date: 11/09/2023 12:30 Report Date: 11/09/2023 12:47 At the request of: PAMELA JAIN Procedure: XR chest 1V EXAM: XR chest 1V HISTORY: shortness of breath COMPARISON: Chest study dated 09/08/2023 , CT angiography chest study dated 10/14/2023 TECHNIQUE: AP view of the chest was obtained with portable technique at 12:32 PM. FINDINGS: Heart and mediastinal contours are unremarkable in appearance. Generalized COPD. Patchy and linear densities in the right upper lung field similar to prior study, likely representing chronic fibrotic changes. Previously noted cavitary lesion in the right upper lobe with associated soft tissue density again suggested and likely similar to the prior exam. Mild patchy density in the left mid and lower lung field regions may in part be related to fibrosis, overlying mild atelectatic and/or infiltrative changes may also be considered. These findings appear mildly progressed. Likely mild pleural thickening and/or pleural effusions bilaterally, inferiorly. Findings are similar on the right and mildly progressed on the left. No obvious pneumothorax. Slight convexity of the dorsal spine to the right. Postoperative changes about the right acromioclavicular joint region with mild to moderate degenerative changes about the right shoulder. XR/XR chest 1V IMPRESSION: COPD. Likely chronic fibrotic changes as described. Mild patchy density on the left mid and part be related to chronic fibrotic changes, overlying mild atelectatic and/or infiltrative changes may also be considered. These findings appear mildly progressed compared to the prior exam. Mild pleural thickening and/or small pleural effusions bilaterally, inferiorly, similar on the right and mildly progressed on the left. Electronically authenticated by: JOSEPH BERNAL Date: 11/09/2023 12:47
--- NOTE | 2023-11-09 12:03 | ECG_ITS ---
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
[2023-11-09] MEDS: METHYLPREDNISOLONE SOD SUCC PF 125 MG/2 ML VIAL IVP (12:14)
[2023-11-09 12:15] LABS: ABG PCO2 43.2 mmHg (35.0-45.0); Base Excess ABG -12.3 mmol/L (-2.0-2.0); HCO3 ABG 16.1 mmol/L (22.0-26.0)
[2023-11-09 12:16] LABS: Allen Test POSITIVE (POSITIVE); BIPAP Pressure 14/7; Fractionated Inspired Oxygen 100 %; O2 Mode BIPAP; Oxygen Saturation ABG 27.3 %
[2023-11-09 12:18] LABS: PO2 ABG <30.1 mmHg (80.0-100.0); pH ABG 7.179 (7.350-7.450)
[2023-11-09] MEDS: IPRATROPIUM/ALBUTEROL SULFATE 3 ML AMPUL.NEB 9 ML IH (12:22)
[2023-11-09] MEDS: MAGNESIUM SULFATE IN WATER 2 GM/50 ML PREMIX IV (12:42)
[2023-11-09 12:48] LABS: Basophils Percent Auto 0.3 % (0.2-2.0); Hematocrit 31.6 % (42.0-54.0); Hemoglobin 9.8 g/dL (14.0-18.0); Immature Granulocytes Abs Auto 0.24 10^3/uL (0.00-0.03); Immature Granulocytes Pct Auto 2.4 % (0.0-0.5); Lymphocytes Absolute Auto 0.6 10^3/uL (1.2-3.8); Lymphocytes Percent Auto 5.6 % (20.5-60.0); Mean Corpuscular Hemoglobin 28.2 pg (25.9-34.0); Mean Corpuscular Volume 91.1 fL (80.0-94.0); Mean Platelet Volume 9.1 fL (9.5-13.5); Monocytes Absolute Auto 1.1 10^3/uL (0.3-0.8); Monocytes Percent Auto 11.1 % (1.7-12.0); Neutrophils Absolute Auto 8.1 10^3/uL (1.4-6.5); Neutrophils Percent Auto 80.6 % (43.0-75.0); Platelet Count 230 10^3/uL (150-450); Red Blood Count 3.47 10^6/uL (4.70-6.10); Red Cell Distribution Width 18.3 % (11.0-15.0)
[2023-11-09 13:16] LABS: Lactate/Lactic Acid 1.2 mmol/L (0.4-2.0)
[2023-11-09 13:58] LABS: Anion Gap 27.8; BUN Creatinine Ratio 12.2; Calcium 8.1 mg/dL (8.5-10.1); Carbon Dioxide 16.7 mmol/L (21.0-32.0); Chloride 100 mmol/L (98-107); Estimated GFR (African America 7 (>=60); Estimated GFR (Non-African Ame 5 (>=60); Glucose 80 mg/dL (74-106); Sodium 137 mmol/L (136-145)
[2023-11-09 14:04] LABS: ABG PCO2 29.9 mmHg (35.0-45.0); HCO3 ABG 11.7 mmol/L (22.0-26.0); pH ABG 7.201 (7.350-7.450)
[2023-11-09 14:05] LABS: Base Excess ABG -16.3 mmol/L (-2.0-2.0)
[2023-11-09 14:06] LABS: Allen Test POSITIVE (POSITIVE); Oxygen Saturation ABG >100.0 %
[2023-11-09 14:07] LABS: BIPAP Pressure 14/8; Fractionated Inspired Oxygen 100 %; O2 Mode BIPAP
[2023-11-09 14:20] LABS: Potassium 7.5 mmol/L (3.5-5.1)
--- NOTE | 2023-11-09 14:20 | ECG_ITS ---
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
--- NOTE | 2023-11-09 14:28 | CT_ITS ---
[address] [address] Patient Name: KEITH MENDES MRN: [id number] date: 1960 Sex: M Assigned Patient Location: ER Current Patient Location: Accession/Order Number: [id number] Exam Date: 11/09/2023 14:17 Report Date: 11/09/2023 15:14 At the request of: PAMELA JAIN Procedure: CT angio chest EXAM: CT angio chest HISTORY: hypoxia, r/o PE COMPARISON: 10/14/2023 TECHNIQUE: CT chest with intravenous contrast was performed with timing for the evaluation for pulmonary arteries. Multiplanar reformats were performed. MIP (maximum intensity projection) images or 3D post processing was performed. Dose reduction techniques were achieved by using automated exposure control and/or adjustment of mA and/or kV according to patient size and/or use of iterative reconstruction technique. FINDINGS: Lungs: There is bilateral centrilobular emphysema. No pneumothorax. Stable right apical thick-walled cavitation with surrounding parenchymal scarring and mild bronchiectasis. Left lower lobe consolidation. There is a 0.8 cm left upper lobe spiculated nodule. Posttreatment follow-up is recommended to evaluate stability. Airways: Normal. Mediastinum: No adenopathy. Aorta: No aneurysm. Cardiac: Normal size. No pericardial effusion. Pulmonary vasculature: Diagnostic opacification of pulmonary arteries without evidence of pulmonary embolus. Normal morphology. Bones: No acute bony abnormality. Axilla: No adenopathy. Thyroid gland: No abnormality demonstrated on provided imaging. Soft tissues: Unremarkable. Upper abdomen: Unremarkable. Additional findings: None. CT/CT angio chest IMPRESSION: No evidence of pulmonary embolus. Left lower lobe consolidation, representing meconium. There is a 0.8 cm left upper lobe spiculated nodule. Posttreatment follow-up is recommended to evaluate stability. Stable right apical thick-walled cavitation with surrounding parenchymal scarring and mild bronchiectasis. Electronically authenticated by: ROB DC Date: 11/09/2023 15:14
[2023-11-09] MEDS: DEXTROSE 50 %-WATER 25 GM/50 ML SYRINGE IV (14:44)
[2023-11-09] MEDS: SODIUM ZIRCONIUM CYCLOSILICATE 10 GM POWD.PACK PO (14:44)
[2023-11-09] MEDS: CALCIUM GLUCONATE 1,000 MG/10 ML VIAL 1000 MG IVP (14:44)
[2023-11-09] MEDS: SODIUM BICARBONATE 50 MEQ/50 ML 8.4% - SYRINGE IV (14:44)
[2023-11-09] MEDS: INSULIN REGULAR 300 UNITS/3 ML 5 UNIT IV (14:47)
[2023-11-09 14:57] LABS: Adenovirus NOT DETECTED (NOT DETECTE); Bordetella parapertussis NOT DETECTED (NOT DETECTE); Coronavirus 229E NOT DETECTED (NOT DETECTE); Coronavirus HKU1 NOT DETECTED (NOT DETECTE); Coronavirus NL63 NOT DETECTED (NOT DETECTE); Human Metapneumovirus NOT DETECTED (NOT DETECTE); Human Rhinovirus/Enterovirus NOT DETECTED (NOT DETECTE); Influenza A NOT DETECTED (NOT DETECTE); Influenza B NOT DETECTED (NOT DETECTE); Mycoplasma pneumoniae NOT DETECTED (NOT DETECTE); Parainfluenza Virus 1 NOT DETECTED (NOT DETECTE); Parainfluenza Virus 2 NOT DETECTED (NOT DETECTE); Parainfluenza Virus 3 NOT DETECTED (NOT DETECTE); Parainfluenza Virus 4 NOT DETECTED (NOT DETECTE); Respiratory Syncytial Virus NOT DETECTED (NOT DETECTE); SARS-CoV-2 NOT DETECTED (NOT DETECTE)
[2023-11-09] MEDS: 0.9 % SODIUM CHLORIDE 1,000 ML 100 ML IV (15:10)
--- NOTE | 2023-11-09 15:44 | ED_ITS ---
HPI HPI - General Adult General Chief complaint: Shortness of Breath/Dyspnea Stated complaint: shortness of breath Time Seen by Provider: 11/09/23 12:03 Source: medical record and other Source information: ems Mode of arrival: ambulance Limitations: physical limitation History of Present Illness HPI narrative: 63-year-old male with sudden decline in his condition over the last few days. He's had increasing shortness of breath. Has not been eating or drinking. He has been confused. 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 Patient arrives EMS in respiratory distress. He was unable to provide further history. Related Data Home Medications ?Medication ?Instructions ?Recorded ?Confirmed albuterol sulfate 2.5 mg/3 mL 2.5 mg inhalation Q4H PRN 06/24/23 10/14/23 (0.083 %) solution for nebulization shortness of breath or wheezing cholecalciferol (vitamin D3) 50 2,000 unit PO DAILY 06/24/23 10/14/23 mcg (2,000 unit) capsule fluticasone fur. 200 mcg-umeclid 1 inh inhalation DAILY 06/24/23 10/14/23 62.5 mcg-vilant 25 mcg inhalat.powder (Trelegy Ellipta) oxycodone 10 mg tablet 10 mg PO Q4H PRN pain 06/24/23 10/14/23 prednisone 10 mg tablet 20 mg PO DAILY 06/24/23 10/14/23 alprazolam 0.25 mg tablet 0.25 mg PO TID 10/14/23 10/14/23 aspirin 81 mg chewable tablet 1 tab PO DAILY 10/14/23 10/14/23 rosuvastatin 40 mg tablet 40 mg PO DAILY 10/14/23 10/14/23 Previous Rx's ?Medication ?Instructions ?Recorded benzonatate 100 mg capsule 200 mg (2 x 100 mg) PO Q8H PRN 10/17/23 Cough #30 caps clonidine HCl 0.1 mg tablet 0.2 mg (2 x 0.1 mg) PO BID #120 10/17/23 tabs food supplemt, lactose-reduced 1 ea PO BID #5,688 mL 10/17/23 (Ensure Active Protein-Muscle oral liquid) levofloxacin 750 mg tablet 750 mg PO DAILY 10 days #10 tabs 10/17/23 prednisone 10 mg tablet 50 mg (5 x 10 mg) PO DAILY #60 tabs 10/17/23 Allergies Allergy/AdvReac Type Severity Reaction Status Date / Time erythromycin base Allergy Severe Verified 11/09/23 12:08 Opioid HPI Opioid Management Most Recent Opioid Data: Last Pain Scale 4 10/17/23 10:34 Last Pain Intensity 5 10/17/23 10:34 Last ORT Total Score 13 10/14/23 16:45 Last ORT Risk Category High Risk 10/14/23 16:45 Review of Systems ROS Status of ROS unobtainable due to mental status [facility] Medical History (Updated 11/09/23 @ 16:35 by Nitish Jean MD) Chest pain ?R07.9 - Chest pain, unspecified (ICD-10) COPD exacerbation ?J44.1 - Chronic obstructive pulmonary disease with (acute) exacerbation (ICD-10) Acute respiratory distress ?R06.03 - Acute respiratory distress (ICD-10) Acute dyspnea ?R06.00 - Dyspnea, unspecified (ICD-10) HCAP (healthcare-associated pneumonia) ?J18.9 - Pneumonia, unspecified organism (ICD-10) Coronary artery disease ?I25.10 - Atherosclerotic heart disease of [place] coronary artery without angina pectoris (ICD-10) Alcohol abuse ?F10.10 - Alcohol abuse, uncomplicated (ICD-10) Atrial fibrillation ?I48.91 - Unspecified atrial fibrillation (ICD-10) Hyperlipidemia ?E78.5 - Hyperlipidemia, unspecified (ICD-10) COPD (chronic obstructive pulmonary disease) ?J44.9 - Chronic obstructive pulmonary disease, unspecified (ICD-10) Pulmonary nodule ?R91.1 - Solitary pulmonary nodule (ICD-10) Anemia ?D64.9 - Anemia, unspecified (ICD-10) Neuropathy ?G62.9 - Polyneuropathy, unspecified (ICD-10) Pancreatitis, chronic ?K86.1 - Other chronic pancreatitis (ICD-10) Osteoarthritis ?M19.90 - Unspecified osteoarthritis, unspecified site (ICD-10) Peripheral vascular disease ?I73.9 - Peripheral vascular disease, unspecified (ICD-10) Hypertension ?I10 - Essential (primary) hypertension (ICD-10) Surgical History (Updated 06/24/23 @ 13:48 by Katalina Chacko RN) Status post insertion of iliac artery stent ?Z95.828 - Presence of other vascular implants and grafts (ICD-10) H/O endarterectomy ?Z98.890 - Other specified postprocedural states (ICD-10) Family History (Updated 06/24/23 @ 13:06 by Katalina Chacko RN) Father Family history of CHF (congestive heart failure) Mother Family history of COPD (chronic obstructive pulmonary disease) Family history of diabetes mellitus Social History Within the past year, how often did you have a drink containing alcohol: monthly or less Smoking status: Current every day smoker Non-prescribed substance use: cannabis (any form) Highest level of school completed/degree received: 12th grade, no diploma Exam Narrative Exam Narrative: VITALS: I have reviewed the triage vital signs. GENERAL: Frail, chronically ill-appearing male in respiratory distress NEURO: Alert and oriented x2. Moves all extremities. Face is symmetric and expressive. EYES: PERRL. No scleral icterus or conjunctival injection. No discharge. HENT: Normocephalic, atraumatic. Hearing is grossly intact. Nares grossly patent and without discharge. Mucous membranes Dry. NECK: No JVD. Patient moves neck without restriction. CARDIO: Rhythm regular. Normal rate. No murmur, rub, or gallop. Pulses equal bilaterally in the upper and lower extremity. No lower extremity edema. PULM: Coarse lung sounds. Severe conversational dyspnea. Severe increased work of breathing. GI/: Abdomen is soft and non-tender. Normoactive bowel sounds. EXTREMITIES: Symmetric muscle bulk. No joint swelling. No clubbing, cyanosis, or deformity. SKIN: Warm and dry. Normal turgor. No rash or lesions appreciated. PSYCH: Anxious. Constitutional Vital Signs, click to edit/add: Last Vital Signs Temp 97.4 F L 11/09/23 12:01 Pulse 107 H 11/09/23 12:25 Resp 29 H 11/09/23 12:25 BP 141/62 11/09/23 12:01 Pulse Ox 93 L 11/09/23 14:37 O2 Del Method Vapotherm 11/09/23 14:37 O2 Flow Rate 40 11/09/23 14:37 FiO2 80 11/09/23 14:37 Course Vital Signs Vital signs: Vital Signs Temperature 97.4 F L 11/09/23 12:01 Pulse Rate 116 H 11/09/23 12:01 Respiratory Rate 30 H 11/09/23 12:01 Blood Pressure 141/62 11/09/23 12:01 Pulse Oximetry 80 L 11/09/23 12:01 Oxygen Delivery Method Room Air 11/09/23 12:01 Temperature 97.4 F L 11/09/23 12:01 Pulse Rate 107 H 11/09/23 12:25 Respiratory Rate 29 H 11/09/23 12:25 Blood Pressure 141/62 11/09/23 12:01 Pulse Oximetry 93 L 11/09/23 14:37 Oxygen Delivery Method Vapotherm 11/09/23 14:37 Oxygen Delivery Flow Rate 40 11/09/23 14:37 Fraction of Inspired Oxygen 80 11/09/23 14:37 Medical Decision Making MDM Narrative Medical decision making narrative: 63-year-old male to the emergency department in severe respiratory distress via EMS. On arrival he was in the extremities. His stat DuoNeb treatments and placed on BiPAP. We're able to stabilize him and get him down to high flow nasal cannula. His initial ABG showed severe hypoxia without significant hypercapnia however there appears to be a severe metabolic acidosis. Will obtain a CT Angio chest given his tachycardia and severe hypoxia without concomitant hypercapnia. Level reviewed and noted. He is in acute renal failure today. He has a severe metabolic acidosis. He has a severe hyperkalemia. Chest x-ray without acute findings. I did obtain a CT angiogram to evaluate for pulmonary embolus and given the tachycardia, profound hypoxia. No evidence of pulmonary embolism. EKG without evidence of ischemia however troponin and proBNP are significantly elevated. Unclear if this is demand ischemia from this profound hypoxia. [place] Score: 29, 55% mortality. He already has end stage COPD. Long discussion was had with the patient, his sister, his . His prognosis is very poor and I believe he is at the end of life. I offered transfer for aggressive care or hospice care. We discussed what aggressive care and dialysis would look like. After much discussion the patient makes it known that he is tired of fighting and would like to at home with his family. Family agrees with this plan. I admire his courage. I discussed with Dr. Bailey his PCP who agrees with this plan. Patient was made DNRCC per his expressed wishes, his co-signed this order on his behalf. Hospice consult/ referral was made. Ashley from [facility] will see patient at 8PM [facility] to arrange home hospice. Case to be discussed with Dr. Bailey for GIP admit. Medical Records Medical records reviewed: Yes I reviewed the patient's medical records Lab Data Lab results reviewed: Yes I reviewed the patient's lab results Labs: Lab Results 11/09/23 11/09/23 11/09/23 Range/Units 12:11 12:15 13:18 WBC 10.0 (4.0-11.0) 10^3/uL RBC 3.47 L (4.70-6.10) 10^6/uL Hgb 9.8 L (14.0-18.0) g/dL Hct 31.6 L (42.0-54.0) % MCV 91.1 (80.0-94.0) fL MCH 28.2 (25.9-34.0) pg MCHC 31.0 (29.9-35.2) g/dL RDW 18.3 H (11.0-15.0) % Plt Count 230 (150-450) 10^3/uL MPV 9.1 L (9.5-13.5) fL Neut % (Auto) 80.6 H (43.0-75.0) % Lymph % (Auto) 5.6 L (20.5-60.0) % [place] % (Auto) 11.1 (1.7-12.0) % Eos % (Auto) 0.0 L (0.9-7.0) % Baso % (Auto) 0.3 (0.2-2.0) % Neut # (Auto) 8.1 H (1.4-6.5) 10^3/uL Lymph # (Auto) 0.6 L (1.2-3.8) 10^3/uL [place] # (Auto) 1.1 H (0.3-0.8) 10^3/uL Eos # (Auto) 0.0 (0.0-0.7) 10^3/uL Baso # (Auto) 0.0 (0.0-0.1) 10^3/uL Abs Immat Gran (auto) 0.24 H (0.00-0.03) 10^3/uL Imm/Tot Granulo (auto) 2.4 H (0.0-0.5) % ABG pH 7.179 L* (7.350-7.450) ABG pCO2 43.2 (35.0-45.0) mmHg ABG pO2 <30.1 L* (80.0-100.0) mmHg ABG HCO3 16.1 L (22.0-26.0) mmol/L ABG O2 Saturation 27.3 % ABG Base Excess -12.3 L (-2.0-2.0) mmol/L Atif Test Positive (POSITIVE) FiO2 100 % BiPAP 14/7 Sodium 137 (136-145) mmol/L Potassium 7.5 H* (3.5-5.1) mmol/L Chloride 100 (98-107) mmol/L Carbon Dioxide 16.7 L (21.0-32.0) mmol/L Anion Gap 27.8 BUN 118.0 H* (7.0-18.0) mg/dL Creatinine 9.68 H* (0.70-1.30) mg/dL Est GFR ( Amer) 7 L (>=60) Est GFR (Non-Af Amer) 5 L (>=60) BUN/Creatinine Ratio 12.2 Glucose 80 (74-106) mg/dL Lactate 1.2 (0.4-2.0) mmol/L Calcium 8.1 L (8.5-10.1) mg/dL Troponin I High Sens 2091.0 H* (4.0-76.1) pg/mL NT-Pro-B Natriuret Pep 7136.0 H* (<=900.0) pg/mL Adenovirus (PCR) Not detected (NOT DETECTE) C. pneumoniae DNA (PCR) Not detected (NOT DETECTE) Coronavirus Type OC43 Detected A (NOT DETECTE) Coronavirus Type HKU1 Not detected (NOT DETECTE) Coronavirus Type 229E Not detected (NOT DETECTE) Coronavirus Type NL63 Not detected (NOT DETECTE) Human Metapneumovir PCR Not detected (NOT DETECTE) M. pneumoniae (PCR) Not detected (NOT DETECTE) Parainfluenza PCR Not detected (NOT DETECTE) Parainfluenza 2 (PCR) Not detected (NOT DETECTE) Parainfluenza 3 (PCR) Not detected (NOT DETECTE) Parainfluenza 4 (PCR) Not detected (NOT DETECTE) RSV (RT-PCR) Not detected (NOT DETECTE) Entero/Rhino (PCR) Not detected (NOT DETECTE) SARS-CoV-2 (PCR) Not detected (NOT DETECTE) Bordetella pertussis (PCR) Not detected (NOT DETECTE) B parapertussis DNA PCR Not detected (NOT DETECTE) Influenza Type A (PCR) Not detected (NOT DETECTE) Influenza Type B (PCR) Not detected (NOT DETECTE) 11/09/23 Range/Units 13:42 WBC (4.0-11.0) 10^3/uL RBC (4.70-6.10) 10^6/uL Hgb (14.0-18.0) g/dL Hct (42.0-54.0) % MCV (80.0-94.0) fL MCH (25.9-34.0) pg MCHC (29.9-35.2) g/dL RDW (11.0-15.0) % Plt Count (150-450) 10^3/uL MPV (9.5-13.5) fL Neut % (Auto) (43.0-75.0) % Lymph % (Auto) (20.5-60.0) % [place] % (Auto) (1.7-12.0) % Eos % (Auto) (0.9-7.0) % Baso % (Auto) (0.2-2.0) % Neut # (Auto) (1.4-6.5) 10^3/uL Lymph # (Auto) (1.2-3.8) 10^3/uL [place] # (Auto) (0.3-0.8) 10^3/uL Eos # (Auto) (0.0-0.7) 10^3/uL Baso # (Auto) (0.0-0.1) 10^3/uL Abs Immat Gran (auto) (0.00-0.03) 10^3/uL Imm/Tot Granulo (auto) (0.0-0.5) % ABG pH 7.201 L* (7.350-7.450) ABG pCO2 29.9 L (35.0-45.0) mmHg ABG pO2 357.0 H (80.0-100.0) mmHg ABG HCO3 11.7 L (22.0-26.0) mmol/L ABG O2 Saturation >100.0 % ABG Base Excess -16.3 L (-2.0-2.0) mmol/L Atif Test Positive (POSITIVE) FiO2 100 % BiPAP 14/8 Sodium (136-145) mmol/L Potassium (3.5-5.1) mmol/L Chloride (98-107) mmol/L Carbon Dioxide (21.0-32.0) mmol/L Anion Gap BUN (7.0-18.0) mg/dL Creatinine (0.70-1.30) mg/dL Est GFR ( Amer) (>=60) Est GFR (Non-Af Amer) (>=60) BUN/Creatinine Ratio Glucose (74-106) mg/dL Lactate (0.4-2.0) mmol/L Calcium (8.5-10.1) mg/dL Troponin I High Sens (4.0-76.1) pg/mL NT-Pro-B Natriuret Pep (<=900.0) pg/mL Adenovirus (PCR) (NOT DETECTE) C. pneumoniae DNA (PCR) (NOT DETECTE) Coronavirus Type OC43 (NOT DETECTE) Coronavirus Type HKU1 (NOT DETECTE) Coronavirus Type 229E (NOT DETECTE) Coronavirus Type NL63 (NOT DETECTE) Human Metapneumovir PCR (NOT DETECTE) M. pneumoniae (PCR) (NOT DETECTE) Parainfluenza PCR (NOT DETECTE) Parainfluenza 2 (PCR) (NOT DETECTE) Parainfluenza 3 (PCR) (NOT DETECTE) Parainfluenza 4 (PCR) (NOT DETECTE) RSV (RT-PCR) (NOT DETECTE) Entero/Rhino (PCR) (NOT DETECTE) SARS-CoV-2 (PCR) (NOT DETECTE) Bordetella pertussis (PCR) (NOT DETECTE) B parapertussis DNA PCR (NOT DETECTE) Influenza Type A (PCR) (NOT DETECTE) Influenza Type B (PCR) (NOT DETECTE) Imaging Data CT scan - chest: Radiologist's impression: ITS Impressions Chest X-Ray 11/09/23 12:03 IMPRESSION: COPD. Likely chronic fibrotic changes as described. Mild patchy density on the left mid and part be related to chronic fibrotic changes, overlying mild atelectatic and/or infiltrative changes may also be considered. These findings appear mildly progressed compared to the prior exam. Mild pleural thickening and/or small pleural effusions bilaterally, inferiorly, similar on the right and mildly progressed on the left. Electronically authenticated by: JOSEPH BERNAL Date: 11/09/2023 12:47 Chest CTA 11/09/23 14:28 IMPRESSION: No evidence of pulmonary embolus. Left lower lobe consolidation, representing meconium. There is a 0.8 cm left upper lobe spiculated nodule. Posttreatment follow-up is recommended to evaluate stability. Stable right apical thick-walled cavitation with surrounding parenchymal scarring and mild bronchiectasis. Electronically authenticated by: ROB DC Date: 11/09/2023 15:14 ECG Data Attestation: I personally reviewed and interpreted this ECG as follows: (EKG one: Sinus tachycardia. No ischemia. Normal QTC. EKG two: Sinus tachycardia. No ischemia. Normal QTC.) Critical Care Time Critical Care Time Critical Care Time: Yes Total Critical Care Time: 85 Attestation: Critical Care Procedure Note Authorized and Performed by: Nitish Jean DO Total critical care time: 85 min Due to a high probability of clinically significant, life threatening deterioration, the patient required my highest level of preparedness to intervene emergently and I personally spent this critical care time directly and personally managing the patient. This critical care time included obtaining a history; examining the patient; pulse oximetry; ordering and review of studies; arranging urgent treatment with development of a management plan; evaluation of patient's response to treatment; frequent reassessment; and, discussions with other providers. This critical care time was performed to assess and manage the high probability of imminent, life-threatening deterioration that could result in multi-organ failure. It was exclusive of separately billable procedures and treating other patients and teaching time. Please see MDM section and the rest of the note for further information on patient assessment and treatment. Discharge Plan Discharge Chief Complaint: Shortness of Breath/Dyspnea Clinical Impression: Type 2 myocardial infarction, Acute renal failure (ARF), Acute hypoxemic respiratory failure, Metabolic acidosis, Acute hyperkalemia Patient Disposition: Hospice - Medical Facility Time of Disposition Decision: 16:44 Prescriptions / Home Meds: No Action cholecalciferol (vitamin D3) 50 mcg (2,000 unit) capsule 2,000 unit PO DAILY Trelegy Ellipta 200-62.5-25 mcg blister with device 1 inh inhalation DAILY prednisone 10 mg tablet 20 mg PO DAILY oxycodone 10 mg tablet 10 mg PO Q4H PRN (Reason: pain) albuterol sulfate 2.5 mg /3 mL (0.083 %) solution for nebulization 2.5 mg inhalation Q4H PRN (Reason: shortness of breath or wheezing) alprazolam 0.25 mg tablet 0.25 mg PO TID aspirin 81 mg tablet,chewable 1 tab PO DAILY rosuvastatin 40 mg tablet 40 mg PO DAILY clonidine HCl 0.1 mg Tablet 0.2 mg PO BID Qty: 120 11RF prednisone 10 mg tablet 50 mg PO DAILY Qty: 60 11RF Rx Instructions: 5/day for 3 days. 4/day for 3 days, 3/day for 3 days, 2/day for ever levofloxacin 750 mg tablet 750 mg PO DAILY 10 Days Qty: 10 0RF benzonatate 100 mg Capsule 200 mg PO Q8H PRN (Reason: Cough) Qty: 30 0RF Ensure Active Protein-Muscle Liquid 1 ea PO BID Qty: 5688 11RF Print Language: French Referrals: Miky Bailey MD [Primary Care Provider] - 1 week
[2023-11-09 15:51] LABS: Coronavirus OC43 DETECTED (NOT DETECTE)
[2023-11-09] MEDS: MORPHINE SULFATE 4 MG/ML VIAL IV (16:21)
[2023-11-09] MEDS: ONDANSETRON PF 4 MG/2 ML VIAL IV (16:21)
[2023-11-09] MEDS: MORPHINE SULFATE 2 MG/ML SYRINGE IV (18:10)
--- NOTE | 2023-11-09 18:29 | P.HP_ITS ---
HPI H&P: HPI History of Present Illness Chief complaint: Type 2 myocardio infarction are acute hypoxemic Narrative: Patient very well-known to me presented to the emergency room with increasing weakness and confusion. In ER found to have acute renal failure and type II myocardial infarction related to over the weekend acute hypoxia. He was placed on BiPAP in the ER and progressed into Vapotherm. His renal function is about 8 times normal, potassium significantly elevated, troponin significantly elevated, BNP is significantly elevated. The likely scenario was over the weekend he had a heart attack, now has reduced ejection fraction causing decreased flow to the kidneys causing the acute renal failure. After much discussion and based on his history and talking with him frequently in the past. He did not want any heroic measures done. Will consult to hospice. Placed patient observation status for general inpatient with hospice Opioid HPI Opioid Management Most Recent Opioid Data: Last Pain Scale 4 10/17/23 10:34 Last Pain Intensity 5 10/17/23 10:34 Last MAR Pain Assessment 11/09/23 18:10 Last ORT Total Score 0 11/09/23 17:44 Last ORT Risk Category Low Risk 11/09/23 17:44 Review of Systems ROS Narrative Unable to get a history from him, did have long conversation with ex- . He was seen in the office about a week ago for respiratory type symptoms and those were improving up until the weekend Status of ROS 10 or more systems reviewed and unremark able except as noted in history and below [facility] Medical History (Updated 11/09/23 @ 16:35 by Nitish Jean MD) Chest pain ?R07.9 - Chest pain, unspecified (ICD-10) COPD exacerbation ?J44.1 - Chronic obstructive pulmonary disease with (acute) exacerbation (ICD-10) Acute respiratory distress ?R06.03 - Acute respiratory distress (ICD-10) Acute dyspnea ?R06.00 - Dyspnea, unspecified (ICD-10) HCAP (healthcare-associated pneumonia) ?J18.9 - Pneumonia, unspecified organism (ICD-10) Coronary artery disease ?I25.10 - Atherosclerotic heart disease of [place] coronary artery without angina pectoris (ICD-10) Alcohol abuse ?F10.10 - Alcohol abuse, uncomplicated (ICD-10) Atrial fibrillation ?I48.91 - Unspecified atrial fibrillation (ICD-10) Hyperlipidemia ?E78.5 - Hyperlipidemia, unspecified (ICD-10) COPD (chronic obstructive pulmonary disease) ?J44.9 - Chronic obstructive pulmonary disease, unspecified (ICD-10) Pulmonary nodule ?R91.1 - Solitary pulmonary nodule (ICD-10) Anemia ?D64.9 - Anemia, unspecified (ICD-10) Neuropathy ?G62.9 - Polyneuropathy, unspecified (ICD-10) Pancreatitis, chronic ?K86.1 - Other chronic pancreatitis (ICD-10) Osteoarthritis ?M19.90 - Unspecified osteoarthritis, unspecified site (ICD-10) Peripheral vascular disease ?I73.9 - Peripheral vascular disease, unspecified (ICD-10) Hypertension ?I10 - Essential (primary) hypertension (ICD-10) Surgical History (Updated 06/24/23 @ 13:48 by Katalina Chacko RN) Status post insertion of iliac artery stent ?Z95.828 - Presence of other vascular implants and grafts (ICD-10) H/O endarterectomy ?Z98.890 - Other specified postprocedural states (ICD-10) Family History (Updated 06/24/23 @ 13:06 by Katalina Chacko RN) Father Family history of CHF (congestive heart failure) Mother Family history of COPD (chronic obstructive pulmonary disease) Family history of diabetes mellitus Social History Within the past year, how often did you have a drink containing alcohol: monthly or less Smoking status: Current every day smoker Non-prescribed substance use: cannabis (any form) Highest level of school completed/degree received: decline to answer Meds Home Medications and Allergies Home Medications ?Medication ?Instructions ?Recorded ?Confirmed ?Type albuterol sulfate 2.5 mg/3 mL 2.5 mg inhalation Q4H PRN 06/24/23 11/09/23 History (0.083 %) solution for nebulization shortness of breath or wheezing cholecalciferol (vitamin D3) 50 2,000 unit PO DAILY 06/24/23 11/09/23 History mcg (2,000 unit) capsule fluticasone fur. 200 mcg-umeclid 1 inh inhalation DAILY 06/24/23 11/09/23 History 62.5 mcg-vilant 25 mcg inhalat.powder (Trelegy Ellipta) oxycodone 10 mg tablet 10 mg PO Q4H PRN pain 06/24/23 11/09/23 History prednisone 10 mg tablet 20 mg PO DAILY 06/24/23 11/09/23 History alprazolam 0.25 mg tablet 0.25 mg PO TID 10/14/23 11/09/23 History aspirin 81 mg chewable tablet 1 tab PO DAILY 10/14/23 11/09/23 History rosuvastatin 40 mg tablet 40 mg PO DAILY 10/14/23 11/09/23 History benzonatate 100 mg capsule 200 mg (2 x 100 mg) PO Q8H PRN 10/17/23 11/09/23 Rx Cough #30 caps clonidine HCl 0.1 mg tablet 0.2 mg (2 x 0.1 mg) PO BID #120 10/17/23 11/09/23 Rx tabs food supplemt, lactose-reduced 1 ea PO BID #5,688 mL 10/17/23 11/09/23 Rx (Ensure Active Protein-Muscle oral liquid) levofloxacin 750 mg tablet 750 mg PO DAILY 10 days #10 tabs 10/17/23 11/09/23 Rx Allergies Allergy/AdvReac Type Severity Reaction Status Date / Time erythromycin base Allergy Severe Verified 11/09/23 12:08 Exam Constitutional Vital Signs, click to edit/add: Last Vital Signs Temp 98.6 F 11/09/23 17:44 Pulse 79 11/09/23 17:44 Resp 24 H 11/09/23 17:44 BP 94/58 11/09/23 17:44 Pulse Ox 91 L 11/09/23 17:44 O2 Del Method Vapotherm 11/09/23 17:44 O2 Flow Rate 40 11/09/23 14:37 FiO2 80 11/09/23 14:37 Documenting provider has reviewed patient's vital signs: yes Common normals: apparent distress (Moderately restless and agitated. In and out of alertness) Exam limitations: altered mental status and language barrier Chest Common normals: inspection of chest normal Respiratory Common normals: abnormal respiratory effort (Mildly labored breathing. Improving with morphine) and not clear to ascultation bilaterally Effort & inspection: tachypneic Auscultation: rales, rhonchi and diminished lung sounds Cardio Common normals: regular rate and regular rhythm Results Labs Labs: Short CBC 11/09/23 Range/Units 12:15 WBC 10.0 (4.0-11.0) 10^3/uL Hgb 9.8 L (14.0-18.0) g/dL Hct 31.6 L (42.0-54.0) % Plt Count 230 (150-450) 10^3/uL [facility] 11/09/23 12:15 Sodium 137 Potassium 7.5 H* Chloride 100 Carbon Dioxide 16.7 L BUN 118.0 H* Creatinine 9.68 H* Glucose 80 Calcium 8.1 L ABG ABG results: 11/09/23 11/09/23 12:11 13:42 ABG pH 7.179 L* 7.201 L* ABG pCO2 43.2 29.9 L ABG pO2 <30.1 L* 357.0 H ABG HCO3 16.1 L 11.7 L ABG O2 Saturation 27.3 >100.0 ABG Base Excess -12.3 L -16.3 L Assessment and Plan Assessment and Plan (1) Acute hyperkalemia: (2) Metabolic acidosis: (3) Acute hypoxemic respiratory failure: (4) Acute renal failure (ARF): (5) Type 2 myocardial infarction: Plan Altered mental status secondary to type II myocardial infarction resulting in acute systolic heart failure with acute hypoxic respiratory failure requiring BiPAP with acute renal failure and significant hyperkalemia. After much discussion with family and knowing his history. When he did have a little bit of alertness he stated he did not want any heroic measures done not count on th at but based on talking with him in the past he had stated that prior. So at this point we will consult to hospice. Placed patient on Ativan morphine and Zofran for nausea. Just keep patient comfortable Acute renal failure secondary to the type II myocardial infarction with reduced ejection fraction leading to low flow state for kidneys Hyperkalemia secondary to the above Severe metabolic and respiratory acidosis secondary to the above- Admission status: General inpatient for hospice. Hospice to see patient tonight. Home with hospice tomorrow is the ultimate goal
[2023-11-09] MEDS: LORAZEPAM 2 MG/ML ORAL CONCENTRATE BOTTLE 0.5 MG BUCCAL (18:32)
[2023-11-10] MEDS: MORPHINE SULFATE 100 MG/5 ML SOLUTION PO ×4 (01:02→17:35)
[2023-11-10] MEDS: LORAZEPAM 2 MG/ML ORAL CONCENTRATE BOTTLE 0.5 MG BUCCAL ×2 (01:02→13:58)
[2023-11-10 01:13] VITALS: O2SAT 95
[2023-11-10 04:10] VITALS: O2SAT 96
[2023-11-10 05:18] VITALS: O2SAT 96
--- NOTE | 2023-11-10 08:43 | PM.DS1 ---
DS: Providers Provider Date of admission: 11/09/23 17:29 Primary care physician: Miky Bailey MD Consults: 11/09/23 15:34 Consult to Hospice Routine Reason for consultation: End of life care Has provider been notified: No 11/09/23 16:48 Consult to Hospice Routine Reason for consultation: Mullen to see tonight around 8 pm Has provider been notified: No DS: Diagnosis Discharge Diagnosis (1) Acute hyperkalemia: (2) Metabolic acidosis: (3) Acute hypoxemic respiratory failure: (4) Acute renal failure (ARF): (5) Type 2 myocardial infarction: (6) Hospice care patient: DS: Summary Hospital Course Hospital Course: Patient was seen and evaluated in the emergency room with increasing confusion and weakness. Patient has sinus tachycardia, respiratory distress, severe hypotension with testing reveals acute renal failure with severe hyperkalemia likely secondary to acute myocardial infarction now with reduced ejection fraction resulting in a low flow state to his kidneys causing the acute renal failure. In the past patient has expressed his desire to not have aggressive treatment, he has been through many episodes of being on the ventilator. Does not want that. Long discussion with family and the option was given for hospice which would make sense in this case. Patient will be discharged to home with hospice later today. Time Spent with Patient Time attestation: Total time spent providing and/or coordinating discharge services: Exam Constitutional Vital Signs, click to edit/add: Last Vital Signs Temp 97.5 F L 11/09/23 20:11 Pulse 104 H 11/09/23 20:11 Resp 18 11/09/23 20:11 BP 92/52 11/09/23 20:11 Pulse Ox 96 11/10/23 05:18 O2 Del Method Nasal Cannula 11/10/23 05:18 O2 Flow Rate 5 11/10/23 05:18 FiO2 80 11/09/23 22:30 Documenting provider has reviewed patient's vital signs: yes Common normals: apparent distress (Moderately restless and agitated. In and out of alertness) Exam limitations: altered mental status and language barrier Chest Common normals: inspection of chest normal Respiratory Common normals: abnormal respiratory effort (Mildly labored breathing. Improving with morphine) and not clear to ascultation bilaterally Effort & inspection: tachypneic Auscultation: rales, rhonchi and diminished lung sounds Cardio Common normals: regular rate and regular rhythm DS: Data Data Completed and Pending Labs on day of discharge: Labs from last 24 hours 11/09/23 11/09/23 11/09/23 13:42 13:18 12:15 WBC 10.0 RBC 3.47 L Hgb 9.8 L Hct 31.6 L MCV 91.1 MCH 28.2 MCHC 31.0 RDW 18.3 H Plt Count 230 MPV 9.1 L Neut % (Auto) 80.6 H Lymph % (Auto) 5.6 L Haakon % (Auto) 11.1 Eos % (Auto) 0.0 L Baso % (Auto) 0.3 Neut # (Auto) 8.1 H Lymph # (Auto) 0.6 L Haakon # (Auto) 1.1 H Eos # (Auto) 0.0 Baso # (Auto) 0.0 Abs Immat Gran (auto) 0.24 H Imm/Tot Granulo (auto) 2.4 H ABG pH 7.201 L* ABG pCO2 29.9 L ABG pO2 357.0 H ABG HCO3 11.7 L ABG O2 Saturation >100.0 ABG Base Excess -16.3 L Atif Test Positive FiO2 100 BiPAP 14/8 Sodium 137 Potassium 7.5 H* Chloride 100 Carbon Dioxide 16.7 L Anion Gap 27.8 BUN 118.0 H* Creatinine 9.68 H* Est GFR ( Amer) 7 L Est GFR (Non-Af Amer) 5 L BUN/Creatinine Ratio 12.2 Glucose 80 Lactate 1.2 Calcium 8.1 L Troponin I High Sens 2091.0 H* NT-Pro-B Natriuret Pep 7136.0 H* Adenovirus (PCR) Not detected C. pneumoniae DNA (PCR) Not detected Coronavirus Type OC43 Detected A Coronavirus Type HKU1 Not detected Coronavirus Type 229E Not detected Coronavirus Type NL63 Not detected Human Metapneumovir PCR Not detected M. pneumoniae (PCR) Not detected Parainfluenza PCR Not detected Parainfluenza 2 (PCR) Not detected Parainfluenza 3 (PCR) Not detected Parainfluenza 4 (PCR) Not detected RSV (RT-PCR) Not detected Entero/Rhino (PCR) Not detected SARS-CoV-2 (PCR) Not detected Bordetella pertussis (PCR) Not detected B parapertussis DNA PCR Not detected Influenza Type A (PCR) Not detected Influenza Type B (PCR) Not detected 11/09/23 12:11 WBC RBC Hgb Hct MCV MCH MCHC RDW Plt Count MPV Neut % (Auto) Lymph % (Auto) Haakon % (Auto) Eos % (Auto) Baso % (Auto) Neut # (Auto) Lymph # (Auto) Haakon # (Auto) Eos # (Auto) Baso # (Auto) Abs Immat Gran (auto) Imm/Tot Granulo (auto) ABG pH 7.179 L* ABG pCO2 43.2 ABG pO2 <30.1 L* ABG HCO3 16.1 L ABG O2 Saturation 27.3 ABG Base Excess -12.3 L Atif Test Positive FiO2 100 BiPAP 14/7 Sodium Potassium Chloride Carbon Dioxide Anion Gap BUN Creatinine Est GFR ( Amer) Est GFR (Non-Af Amer) BUN/Creatinine Ratio Glucose Lactate Calcium Troponin I High Sens NT-Pro-B Natriuret Pep Adenovirus (PCR) C. pneumoniae DNA (PCR) Coronavirus Type OC43 Coronavirus Type HKU1 Coronavirus Type 229E Coronavirus Type NL63 Human Metapneumovir PCR M. pneumoniae (PCR) Parainfluenza PCR Parainfluenza 2 (PCR) Parainfluenza 3 (PCR) Parainfluenza 4 (PCR) RSV (RT-PCR) Entero/Rhino (PCR) SARS-CoV-2 (PCR) Bordetella pertussis (PCR) B parapertussis DNA PCR Influenza Type A (PCR) Influenza Type B (PCR) Discharge Plan Discharge Disposition: Hospice - Home Discharge Medications: New morphine concentrate 100 mg/5 mL (20 mg/mL) Solution 5 mg PO Q2H MDD 60 mg PRN (Reason: pain) Qty: 30 0RF lorazepam [Lorazepam Intensol] 2 mg/mL Concentrate 1 mg buccal Q4H MDD 6 mg PRN (Reason: Anxiety) Qty: 30 2RF Continued albuterol sulfate 2.5 mg /3 mL (0.083 %) solution for nebulization 2.5 mg inhalation Q4H PRN (Reason: shortness of breath or wheezing) Discontinued cholecalciferol (vitamin D3) 50 mcg (2,000 unit) capsule 2,000 unit PO DAILY Trelegy Ellipta 200-62.5-25 mcg blister with device 1 inh inhalation DAILY prednisone 10 mg tablet 20 mg PO DAILY oxycodone 10 mg tablet 10 mg PO Q4H PRN (Reason: pain) alprazolam 0.25 mg tablet 0.25 mg PO TID aspirin 81 mg tablet,chewable 1 tab PO DAILY rosuvastatin 40 mg tablet 40 mg PO DAILY clonidine HCl 0.1 mg Tablet 0.2 mg PO BID Qty: 120 11RF levofloxacin 750 mg tablet 750 mg PO DAILY 10 Days Qty: 10 0RF benzonatate 100 mg Capsule 200 mg PO Q8H PRN (Reason: Cough) Qty: 30 0RF Ensure Active Protein-Muscle Liquid 1 ea PO BID Qty: 5688 11RF Print Language: Prydeinig Forms: Portal Instructions
--- NOTE | 2023-11-10 10:01 | SWNOTE1 ---
DORIE spoke to [facility] and they came to see patient last night. Plan is for a nurse to come today and see patient again. [facility] will call SW back to let SW know time. DORIE spoke with nurse Aidee from [facility], her plan is to come around 3:30/4:00. She voiced she has 3 other patients to see. SW let her know plan is for discharge home today and DORIE wanted to make sure equipment was ordered and at the home. Aidee asked for DORIE to find out the following information; address where patient is going, equipment needed, pharmacy for scripts and if doctor left scripts, and if family will be in home to care for him. SW to find out and then call Aidee back so equipment can be ordered.
--- NOTE | 2023-11-10 10:36 | SWNOTE1 ---
DORIE spoke with Jo, pt's ex-, in the room. She stayed all night and will be staying. She voiced he will be going to his own home and she will be staying there with him. Other family will be helping as well. Someone will be with him 09/02. Pt has oxygen at home already and he has a hospital bed as well. Pt uses [facility] in [place] and Dr. Bailey did leave scripts on chart, one is Morphine. DORIE updated nurse Hoskins with all this information. She will be calling there DORIE and possibly sending her here to complete assessment with pt/pt's family and work on getting him home earlier today. DORIE to let Jo and nurse know.
--- NOTE | 2023-11-10 11:33 | SWNOTE1 ---
[facility] called and requested we fax over med list. SW sent dc med list and regular med list over to [facility].
[2023-11-10 11:37] VITALS: O2SAT 91
--- NOTE | 2023-11-10 13:33 | SWNOTE1 ---
[facility] SW here speaking with family. SW spoke to the SW after meeting with family. It was determined that pt does NOT have a hospital bed and they are ordering one. The SW will contact SW once all equipment is delivered and then will work on transport.
--- NOTE | 2023-11-10 14:24 | SWNOTE1 ---
DORIE received call from DORIE at [facility], estimated time of delivery is 4:30 for DME equipment. DORIE called and set up [facility] for 5:30 pm. DORIE notified pt's family in room and [facility] of time.
--- NOTE | 2023-11-10 16:21 | SWNOTE1 ---
SW did find a note from [facility] and pt did sign on GIP on 11/09/23 at 9:00 pm.
[2023-11-10 16:59] LABS: A. calcoaceticus-baumannii Cpx NOT DETECTED (NOT DETECTE); Bacteroides fragilis NOT DETECTED (NOT DETECTE); Candida albicans NOT DETECTED (NOT DETECTE); Candida auris NOT DETECTED (NOT DETECTE); Candida glabrata NOT DETECTED (NOT DETECTE); Candida krusei NOT DETECTED (NOT DETECTE); Candida parapsilosis NOT DETECTED (NOT DETECTE); Candida tropicalis NOT DETECTED (NOT DETECTE); Cryptococcus neoformans/gattii NOT DETECTED (NOT DETECTE); Enterobacter cloacae complex NOT DETECTED (NOT DETECTE); Enterobacterales NOT DETECTED (NOT DETECTE); Enterococcus faecalis NOT DETECTED (NOT DETECTE); Enterococcus faecium NOT DETECTED (NOT DETECTE); Haemophilus influenzae NOT DETECTED (NOT DETECTE); Klebsiella aerogenes NOT DETECTED (NOT DETECTE); Klebsiella pneumoniae group NOT DETECTED (NOT DETECTE); Listeria monocytogenes NOT DETECTED (NOT DETECTE); Neisseria meningitidis NOT DETECTED (NOT DETECTE); Proteus spp. NOT DETECTED (NOT DETECTE); Pseudomonas aeruginosa NOT DETECTED (NOT DETECTE); Salmonella spp. NOT DETECTED (NOT DETECTE); Serratia marcescens NOT DETECTED (NOT DETECTE); Staphylococcus epidermidis NOT DETECTED (NOT DETECTE); Staphylococcus lugdunensis NOT DETECTED (NOT DETECTE); Staphylococcus spp. NOT DETECTED (NOT DETECTE); Stenotrophomonas maltophilia NOT DETECTED (NOT DETECTE); Streptococcus agalactiae NOT DETECTED (NOT DETECTE); Streptococcus pneumoniae NOT DETECTED (NOT DETECTE); Streptococcus pyogenes NOT DETECTED (NOT DETECTE); Streptococcus spp. NOT DETECTED (NOT DETECTE)
--- NOTE | 2023-11-10 18:33 | PC.NURSE ---
Liquid morphine and ativan sent home with patient's . Count verified by this customs entry writer and Teo Ochoa RN. Pharmacy also aware.
[2023-11-10 20:46] LABS: Source BLOOD
--- NOTE | 2023-11-11 11:32 | PC.NURSE ---
Dr. Bailey informed of positive blood culture. Dr. Bailey stated that Michael last night.
== END 2023-11-10 18:24 | disposition hospice, home (50) ==
LOC: ER 16:53 → MS 17:33
PROVIDERS: Admitting Provider Family Medicine; Emergency Provider Student in an Organized Health Care Education/Training Program; PCP Family Medicine; Visit Provider Family Medicine
DX: I21.A1 Myocardial infarction type 2 (principal); N17.9 Acute kidney failure, unspecified; J96.01 Acute respiratory failure with hypoxia; E87.5 Hyperkalemia; I11.0 Hypertensive heart disease with heart failure; I50.21 Acute systolic (congestive) heart failure; E87.4 Mixed disorder of acid-base balance; I73.9 Peripheral vascular disease, unspecified; R41.82 Altered mental status, unspecified; M19.90 Unspecified osteoarthritis, unspecified site; J44.9 Chronic obstructive pulmonary disease, unspecified; F17.210 Nicotine dependence, cigarettes, uncomplicated; F12.90 Cannabis use, unspecified, uncomplicated; Z98.890 Other specified postprocedural states; Z79.82 Long term (current) use of aspirin; Z79.899 Other long term (current) drug therapy; Z66 Do not resuscitate; Z95.828 Presence of other vascular implants and grafts; E78.5 Hyperlipidemia, unspecified; I48.91 Unspecified atrial fibrillation; I25.10 Atherosclerotic heart disease of native coronary artery without angina pectoris; Z87.01 Personal history of pneumonia (recurrent); R00.0 Tachycardia, unspecified; I95.9 Hypotension, unspecified; Z20.822 Contact with and (suspected) exposure to COVID-19
CPT/HCPCS: 0202U; 36415; 36600; 71045; 71275; 80048; 82805; 83605; 83880; 84484; 85025; 87040; 87150; 93005; 94640; 94660; 94761; 94799; 96365; 96375; 96376; 99285; G0378; J2919; Q9967